=== PATIENT | female | born 1970 | race African-American/Black ===

== ENCOUNTER 2017-04-10 12:28 | Emergency (ER) | payer OTHER ==
[2017-04-10 12:45] VITALS: TEMP 98.8
[2017-04-10] MEDS ORDERED: ACETAMINOPHEN 325 MG TABLET (FP) ONE (13:42)
[2017-04-10] MEDS ORDERED: MECLIZINE HCL 25 MG TABLET (FP) PO ONE (13:42)
[2017-04-10] MEDS ORDERED: ACETAMINOPHEN 325 MG TABLET (FP) PO ONE (13:42)
[2017-04-10] MEDS ORDERED: MECLIZINE HCL 25 MG TABLET (FP) ONE (13:42)
[2017-04-10] MEDS ORDERED: ONDANSETRON 4 MG TABLET PO ONE (14:03)
[2017-04-10] MEDS ORDERED: ONDANSETRON *ODT* 4 MG TABLET ONE (14:14)
--- NOTE | 2017-04-10 14:41 | PDOC ---
History of Present Illness - General History Source: Patient Exam Limitations: No Limitations <Elier Perez - Last Filed: 04/10/17 14:29> - General History Source: Patient Exam Limitations: No Limitations - History of Present Illness Initial Comments: 04/10/17 14:57 The patient is a 47 year old female, with a significant past medical history of HTN and a seizure disorder, who presents to the emergency department with, 3 days of lightheadedness and her equilibrium is off. She reports this to occur when she makes sudden movements especially when she gets up and walks. She describes her lightheadedness when she gets up as a swirling. She also reports a subjective fever. She reports her last seizure to be approximately 5 years ago. She denies recent fevers, chills, headache or dizziness. She denies recent nausea, vomit, diarrhea or constipation. She denies recent dysuria, frequency, urgency or hematuria. She denies recent chest pain or shortness of breath. Past surgical history: None reported. Social history: Nonsmoker. Denies EtOH use and recreational drug use. Primary Care Physician: Dr. Chris Espinoza <Imelda Hernandez - Last Filed: 04/10/17 14:58> - General Chief Complaint: Lightheaded Stated Complaint: DIZZINESS Time Seen by Provider: 04/10/17 13:31 Past History - Past Medical History COPD: No GI Disorders: Yes (gerd) HTN: Yes Seizures: Yes - Surgical History Neurologic Surgery: Yes (tumor removed) - Suicide/Smoking/Psychosocial Hx Smoking Status: No Smoking History: Never smoked Have you smoked in the past 12 months: No Number of Cigarettes Smoked Daily: 1 Hx Alcohol Use: Yes (SOCIAL) Drug/Substance Use Hx: No Substance Use Type: None <Elier Perez - Last Filed: 04/10/17 14:29> <Imelda Hernandez - Last Filed: 04/10/17 14:58> - Past Medical History Allergies/Adverse Reactions: Allergies Allergy/AdvReac Type Severity Reaction Status Date / Time phenytoin sodium Allergy Swelling Verified 04/10/17 12:45 [From Dilantin] phenytoin sodium extended Allergy Swelling Verified 04/10/17 12:45 [From Dilantin] Home Medications: Ambulatory Orders Levetiracetam [Keppra] 500 mg PO BID 09/23/11 Oxcarbazepine [Trileptal] 150 mg PO BID 09/23/11 Topiramate [Topamax] 100 mg PO DAILY 09/23/11 Amlodipine Besylate [Norvasc -] 0 mg PO DAILY 04/10/17 Esomeprazole Magnesium [Nexium 24Hr] 20 mg PO DAILY 04/10/17 Meclizine HCl 25 mg PO Q6H PRN #20 tablet 04/10/17 Ondansetron HCl [Zofran] 4 mg PO Q8H PRN #15 tablet 04/10/17 Review of Systems - Review of Systems Able to Perform ROS?: Yes Comments:: 04/10/17 14:58 GENERAL/CONSTITUTIONAL: No fever or chills. No weakness. HEAD, EYES, EARS, NOSE AND THROAT: No change in vision. No ear pain or discharge. No sore throat. CARDIOVASCULAR: No chest pain or shortness of breath. RESPIRATORY: No cough, wheezing, or hemoptysis. GASTROINTESTINAL: No nausea, vomiting, diarrhea or constipation. GENITOURINARY: No dysuria, frequency, or change in urination. MUSCULOSKELETAL: No joint or muscle swelling or pain. No neck or back pain. SKIN: No rash NEUROLOGIC: +Lightheadedness. +Imbalance equilibrium. No headache, loss of consciousness, or change in strength/sensation. ENDOCRINE: No increased thirst. No abnormal weight change. HEMATOLOGIC/LYMPHATIC: No anemia, easy bleeding, or history of blood clots. ALLERGIC/IMMUNOLOGIC: No hives or skin allergy. <Imelda Hernandez - Last Filed: 04/10/17 14:58> *Physical Exam - Vital Signs Last Vital Signs Temp Pulse Resp BP Pulse Ox 98.8 F 101 H 20 117/75 99 04/10/17 12:41 04/10/17 12:41 04/10/17 12:41 04/10/17 12:41 04/10/17 12:41 - Physical Exam Comments: 04/10/17 14:50 GENERAL: Awake, alert, and fully oriented, in no acute distress. HEAD: No signs of trauma EYES: PERRLA, EOMI, sclera anicteric, conjunctiva clear ENT: Auricles normal inspection, hearing grossly normal, nares patent NECK: Normal ROM, supple LUNGS: Breath sounds equal, clear to auscultation bilaterally. No wheezes, and no crackles HEART: Regular rate and rhythm, normal S1 and S2, no murmurs, rubs or gallops ABDOMEN: Soft, nontender, normoactive bowel sounds. No guarding, no rebound. No masses EXTREMITIES: Normal range of motion, no edema. No clubbing or cyanosis. No cords, erythema, or tenderness NEUROLOGICAL: Cranial nerves II through XII intact. Normal speech, normal gait. 5/5 strength upper and lower extremities. sensation intact throughout. No pronator drift. Finger to nose normal. Gait normal. Heel to carrasco normal. +Hema ibarra pike positive SKIN: Warm, Dry, normal turgor, no rashes or lesions noted. <Elier Perez - Last Filed: 04/10/17 14:29> - Vital Signs Last Vital Signs Temp Pulse Resp BP Pulse Ox 98.8 F 101 H 20 117/75 99 04/10/17 12:41 04/10/17 12:41 04/10/17 12:41 04/10/17 12:41 04/10/17 12:41 <Imelda Hernandez - Last Filed: 04/10/17 14:58> ED Treatment Course - Medications Given in the ED: ED Medications Discontinued Medications Generic Name Dose Route Start Last Admin Trade Name Freq PRN Reason Stop Dose Admin Acetaminophen 650 mg 04/10/17 13:42 04/10/17 13:45 Tylenol - PO 04/10/17 13:43 650 mg ONCE ONE Administration Meclizine HCl 50 mg 04/10/17 13:42 04/10/17 13:45 Antivert - PO 04/10/17 13:43 50 mg ONCE ONE Administration Ondansetron HCl 4 mg 04/10/17 14:03 04/10/17 14:16 Zofran - PO 04/10/17 14:04 4 mg ONCE ONE Administration <Elier Perez - Last Filed: 04/10/17 14:29> - Medications Given in the ED: ED Medications Discontinued Medications Generic Name Dose Route Start Last Admin Trade Name Freq PRN Reason Stop Dose Admin Acetaminophen 650 mg 04/10/17 13:42 04/10/17 13:45 Tylenol - PO 04/10/17 13:43 650 mg ONCE ONE Administration Meclizine HCl 50 mg 04/10/17 13:42 04/10/17 13:45 Antivert - PO 04/10/17 13:43 50 mg ONCE ONE Administration Ondansetron HCl 4 mg 04/10/17 14:03 04/10/17 14:16 Zofran - PO 04/10/17 14:04 4 mg ONCE ONE Administration <Imelda Hernandez - Last Filed: 04/10/17 14:58> Medical Decision Making - Medical Decision Making 04/10/17 14:52 A portion of this note was documented by scribe services under my direction. I have reviewed the details of the note, within reason, and agree with the documentation with the following case summary and management plan written by me. Patient treated in the ED. Nursing notes are reviewed and incorporated into the medical decision-making. Vital signs reviewed. Vital Signs Temp Pulse Resp BP Pulse Ox 98.8 F 101 H 20 117/75 99 04/10/17 12:41 04/10/17 12:41 04/10/17 12:41 04/10/17 12:41 04/10/17 12:41 47-year-old female with history of hypertension, seizure disorder presents to the emergency department with vertiginous-like symptoms. Patient reports 3 days of the symptoms, worsened with turning her head or standing up. Denies any numbness or weakness. States that she feels her balance. Denies recent illnesses , earaches, fevers, chills, cough, vomiting, diarrhea. Patient is most definitely PERIPHERAL vertigo. She was treated with 50mg of meclizine and Zofran with significant improvement of symptoms. I advised patient that vertiginous-like symptoms may potentially recur. We'll give her referral to otolaryngology and neurology. Return precautions given. I discussed the physical exam findings, ancillary test results and final diagnoses with the patient. I answered all of the patient's questions. The patient was satisfied with the care received and felt comfortable with the discharge plan and treatment plan. The patient will call their primary care physician within 24 hours to arrange follow-up and will return to the Emergency Department with any new, persistant or worsening symptoms. <Elier Perez - Last Filed: 04/10/17 14:29> *DC/Admit/Observation/Transfer - Discharge Dispostion Admit: No <Elier Perez - Last Filed: 04/10/17 14:29> - Attestations Scribe Attestion: 04/10/17 14:58 Documentation prepared by Imelda Hernandez, acting as medical assembly for Elier Perez MD. <Imelda Hernandez - Last Filed: 04/10/17 14:58> Diagnosis at time of Disposition: Vertigo - Discharge Dispostion Disposition: HOME - Prescriptions Prescriptions: Meclizine HCl 25 mg PO Q6H PRN #20 tablet PRN Reason: Vertigo Ondansetron HCl [Zofran] 4 mg PO Q8H PRN #15 tablet PRN Reason: Nausea - Referrals Referrals: Chris Espinoza MD [Primary Care Provider] - Alpesh Resendez MD [Staff Physician] - Eugene Vallejo MD [Staff Physician] - - Patient Instructions Printed Discharge Instructions: DI for Vertigo Additional Instructions: Please follow up with your doctors. Call to schedule an appointment. Take 25 mg meclizine every 6 hours as needed for vertigo. Take 4 mg zofran every 8 hours as needed for nausea. - Post Discharge Activity
[2017-04-10 15:15] VITALS: BP 121/75; PULSE 70
== END 2017-04-10 15:15 | disposition home or self-care (01) ==
LOC: JER 12:28
DX: H81.399 Other peripheral vertigo, unspecified ear (principal); I10 Essential (primary) hypertension; K21.9 Gastro-esophageal reflux disease without esophagitis; Z86.69 Personal history of other diseases of the nervous system and sense organs
CPT/HCPCS: 99281-25

== ENCOUNTER 2017-04-16 00:02 | Observation (INO) | payer OTHER ==
--- NOTE | 2017-04-16 02:29 | PDOC ---
History of Present Illness - General Chief Complaint: Syncope/Near Syncope Stated Complaint: SYNCOPE Time Seen by Provider: 04/16/17 00:55 History Source: Patient Exam Limitations: No Limitations - History of Present Illness Initial Comments: This is a 47 YOF with h/o seizures on Keppra, HTN, craniotomy for meningioma removal in 2000, and newly diagnosed vertigo on meclizine and Zofran, who presents c/o LOC tonight at about 11 pm. The patient states that she was at a bar with her friends, she had two glasses of wine, and she began to feel hot and nauseated and then lost consciousness. She notes that she had been sitting in a chair, she leaned forward and put her head down to try and catch her breath , and the next thing she remembers is awakening on the floor with the paramedics there. Her friend stated that her eyes were rolling back in her head. The patient was subsequently confused for a short time after awakening. She has not had a seizure for the past 5 years and cannot recall whether this feels like a seizure. She has been taking her normal Keppra doses without any missed doses or recent changes in this medication. She has a mild headache but no additional symptoms, and she has otherwise been feeling well lately. She was seen here in the ED on 04/10/17 and diagnosed with vertigo, but has not had any further episodes. She sees Dr. Vallejo for her seizure disorder. Her PCP (Chris Espinoza) took her Keppra level two days ago and it was wnl. Past History - Past Medical History Allergies/Adverse Reactions: Allergies Allergy/AdvReac Type Severity Reaction Status Date / Time phenytoin sodium Allergy Swelling Verified 04/16/17 01:07 [From Dilantin] phenytoin sodium extended Allergy Swelling Verified 04/16/17 01:07 [From Dilantin] Home Medications: Ambulatory Orders Levetiracetam [Keppra] 500 mg PO BID 09/23/11 Oxcarbazepine [Trileptal] 150 mg PO BID 09/23/11 Topiramate [Topamax] 100 mg PO DAILY 09/23/11 Amlodipine Besylate [Norvasc -] 0 mg PO DAILY 04/10/17 Esomeprazole Magnesium [Nexium 24Hr] 20 mg PO DAILY 04/10/17 COPD: No GI Disorders: Yes (gerd) HTN: Yes Seizures: Yes - Surgical History Neurologic Surgery: Yes (tumor removed 2000) - Immunization History Immunization Up to Date: Yes - Suicide/Smoking/Psychosocial Hx Smoking Status: No Smoking History: Never smoked Have you smoked in the past 12 months: No Number of Cigarettes Smoked Daily: 1 Information on smoking cessation initiated: No Hx Alcohol Use: Yes (Socially) Drug/Substance Use Hx: No Substance Use Type: None Review of Systems - Review of Systems Able to Perform ROS?: Yes Constitutional: No: Chills, Fever, Unexplained wgt Loss HEENTM: No: Nose Congestion, Throat Pain Respiratory: No: Cough, Shortness of Breath Cardiac (ROS): Yes: Syncope (versus seizure). No: Chest Pain, Palpitations ABD/GI: No: Constipated, Diarrhea, Nausea, Vomiting : No: Burning, Dysuria Musculoskeletal: No: Back Pain, Neck Pain Integumentary: No: Bruising, Rash Neurological: Yes: Headache, Seizure (versus syncope), Dizziness. No: Numbness , Tingling, Weakness Endocrine: No: Unexplained Weight Gain, Unexplained Weight Loss *Physical Exam - Vital Signs Last Vital Signs Temp Pulse Resp BP Pulse Ox 98.2 F 96 H 16 110/72 96 04/16/17 01:07 04/16/17 01:07 04/16/17 01:07 04/16/17 01:07 04/16/17 01:07 - Physical Exam General Appearance: Yes: Nourished, Appropriately Dressed, Obese, Other (very pleasant adult female accompanied by at bedside, appropriately answering questions). No: Apparent Distress HEENT: positive: EOMI, YEE, Normal Voice, Hearing Grossly Normal, Other (no tongue bite, no rhinorrhea or otorrhea, no escalona sign, no raccoon eyes, no scalp hematoma). negative: Pale Conjunctivae, Scleral Icterus (R), Scleral Icterus (L), Nasal Congestion Neck: positive: Trachea midline, Supple. negative: Tender, Rigid Respiratory/Chest: positive: Lungs Clear, Normal Breath Sounds. negative: Respiratory Distress, Crackles, Rhonchi, Stridor, Wheezing Cardiovascular: positive: Regular Rhythm, Regular Rate. negative: S1, S2, Edema , JVD, Murmur Gastrointestinal/Abdominal: positive: Normal Bowel Sounds, Soft, Protuberent. negative: Tender, Organomegaly, Pulsatile Mass, Guarding Musculoskeletal: positive: Normal Inspection. negative: Decreased Range of Motion, Vertebral Tenderness Extremity: positive: Normal Capillary Refill, Normal Inspection, Normal Range of Motion. negative: Tender, Cyanosis Integumentary: positive: Normal Color, Dry, Warm. 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 negative: Facial Droop, Confused, Disoriented Heart Score/ECG Review #1 ECG reviewed & interpreted by me at: 03:30 General ECG Interpretation: Sinus Rhythm, Normal Rate, Normal Intervals 04/16/17 03:30 T-wave flattening in precordial leads. ED Treatment Course - LABORATORY CBC & Chemistry Diagram: 04/16/17 03:18 04/16/17 05:00 - ADDITIONAL ORDERS Additional order review: Laboratory Results 04/16/17 04/16/17 04/16/17 05:00 05:00 05:00 Sodium 140 Potassium 3.8 Chloride 102 Carbon Dioxide 27 Anion Gap 11 BUN 16 Creatinine 1.8 H Creat Clearance w eGFR 29.91 Random Glucose 101 Calcium 8.7 Total Bilirubin 0.2 D AST 19 ALT 26 Alkaline Phosphatase 98 Creatine Kinase 100 Troponin I < 0.02 Total Protein 7.9 Albumin 3.5 Urine Color Urine Appearance Urine pH Ur Specific [place] Urine Protein Urine Glucose (UA) Urine Ketones Urine Blood Urine Nitrite Urine Bilirubin Urine Urobilinogen Ur Leukocyte Esterase Urine WBC (Auto) Urine RBC (Auto) Ur Epithelial Cells Urine Bacteria Hyaline Casts Urine Mucus Urine HCG, Qual Alcohol, Quantitative 6.8 H* 04/16/17 04/16/17 04/16/17 03:18 02:54 02:54 Sodium Cancelled Potassium Cancelled Chloride Cancelled Carbon Dioxide Cancelled Anion Gap Cancelled BUN Cancelled Creatinine Cancelled Creat Clearance w eGFR Cancelled Random Glucose Cancelled Calcium Cancelled Total Bilirubin Cancelled AST Cancelled ALT Cancelled Alkaline Phosphatase Cancelled Creatine Kinase Cancelled Troponin I Cancelled Total Protein Cancelled Albumin Cancelled Urine Color Yellow Urine Appearance Cloudy Urine pH 5.0 Ur Specific [place] 1.016 Urine Protein Negative Urine Glucose (UA) Negative Urine Ketones Negative Urine Blood 1+ H Urine Nitrite Negative Urine Bilirubin Negative Urine Urobilinogen 2.0 H Ur Leukocyte Esterase 3+ H Urine WBC (Auto) 13 Urine RBC (Auto) 5 Ur Epithelial Cells Moderate Urine Bacteria Many Hyaline Casts 46 Urine Mucus Rare Urine HCG, Qual Negative Alcohol, Quantitative 04/16/17 03:18 RBC 4.23 MCV 84.6 MCHC 31.6 L RDW 14.6 MPV 6.8 L Neutrophils % 72.7 Lymphocytes % 20.3 D Monocytes % 5.8 Eosinophils % 0.7 Basophils % 0.5 - RADIOLOGY Radiology Studies Ordered: Category Date Time Status CXRPORT [CHEST X-RAY PORTABLE*] [RAD] Stat Radiology 04/16/17 02:30 Taken - Medications Given in the ED: ED Medications Discontinued Medications Generic Name Dose Route Start Last Admin Trade Name Addisonq PRN Reason Stop Dose Admin Acetaminophen 975 mg 04/16/17 02:31 04/16/17 02:48 Tylenol - PO 04/16/17 02:32 975 mg ONCE ONE Administration Nitrofurantoin Macrocrystals 100 mg 04/16/17 03:45 04/16/17 03:57 Macrodantin - PO 100 mg ONCE CHAITANYA Administration Sodium Chloride 1,000 ml 04/16/17 06:34 04/16/17 07:04 Normal Saline - IV 04/16/17 06:35 1,000 ml ONCE ONE Administration Sodium Chloride 1,000 ml 04/16/17 06:36 04/16/17 07:04 Normal Saline - IV 04/16/17 06:37 1,000 ml ONCE ONE Administration Medical Decision Making - Medical Decision Making 47 YOF with h/o seizure disorder (on Keppra), HTN, craniotomy for meningioma in 2000, p/w seizure vs. syncope tonight. States atraumatic as she slumped to ground from chair, now with headache. On exam she has initial slight tachycardia (resolved by the time of my exam), otherwise VS wnl, no distress. Her heart, lung, abdominal, and neuro exams are benign. DDX IBNLT seizure (i.e. precipitated by UTI, PNA, anemia, electrolyte derangement), syncope (i.e. arrhythmia, ACS, ischemia, etc). Ordered is CBCD CMP cardiac panel EKG CXR UA cx and Tylenol for headache. 04/16/17 03:32 UA with 3+ leukocyte est, ordered is a dose of Macrobid. 04/16/17 04:13 First and second chemistries and cardiac panels hemolyzed. Order re-placed and patient will be re-drawn. GONSALVES resolved per the patient's report. 04/16/17 06:42 Patient has Cr 1.8 on CMP. Patient's CMP will be re-drawn after IVF. The patient is comfortable with this plan. Patient's care signed out to [facility] day shift. *DC/Admit/Observation/Transfer Diagnosis at time of Disposition: Seizure, BRADEN (acute kidney injury) UTI (urinary tract infection) Qualifiers: Urinary tract infection type: acute cystitis Hematuria presence: with hematuria Qualified Code(s): N30.01 - Acute cystitis with hematuria Headache Qualifiers: Headache type: unspecified Headache chronicity pattern: acute headache Intractability: not intractable Qualified Code(s): R51 - Headache - Discharge Dispostion Condition at time of disposition: Guarded Admit: Yes - Referrals Referrals: Chris Espinoza MD [Primary Care Provider] - - Patient Instructions - Post Discharge Activity
[2017-04-16] MEDS ORDERED: ACETAMINOPHEN 500 MG TABLET (FP) PO ONE (02:31)
[2017-04-16] MEDS ORDERED: ACETAMINOPHEN 325 MG TABLET (FP) ONE (02:45)
[2017-04-16 03:05] LABS: URINE APPEARANCE CLOUDY; URINE BILIRUBIN NEGATIVE (NEGATIVE); URINE BLOOD 1+ (NEGATIVE); URINE COLOR YELLOW; URINE GLUCOSE (UA) NEGATIVE (NEGATIVE); URINE KETONE NEGATIVE (NEGATIVE); URINE NITRITE NEGATIVE (NEGATIVE); URINE PROTEIN NEGATIVE (NEGATIVE)
[2017-04-16 03:14] LABS: URINE LEUK ESTERASE 3+ (NEGATIVE)
[2017-04-16 03:15] LABS: EPI CELLS MODERATE /HPF (FEW); URINE BACTERIA MANY /hpf (NONE SEEN); URINE HYALINE CAST 46 /lpf; URINE MUCUS RARE
[2017-04-16 03:25] LABS: BASO % 0.5 % (0-2.0); EOS % 0.7 % (0-4.5); HEMATOCRIT 35.8 % (32.4-45.2); HEMOGLOBIN 11.3 GM/dL (10.7-15.3); LYMPH % 20.3 % (8-40); MCH 26.7 pg (25.7-33.7); MCHC 31.6 g/dl (32.0-36.0); MEAN CELL VOLUME 84.6 fl (80-96); MEAN PLT VOLUME 6.8 fl (7.5-11.1); MONO % 5.8 % (3.8-10.2); NEUT % 72.7 % (42.8-82.8); PLATELET COUNT 489 K/MM3 (134-434); RBC 4.23 M/mm3 (3.60-5.2); RDW 14.6 % (11.6-15.6); WHITE BLOOD COUNT 13.3 K/mm3 (4.0-10.0)
[2017-04-16] MEDS ORDERED: NITROFURANTOIN MACROCRYSTAL 50 MG CAPSULE (FP) PO SCH (03:45)
[2017-04-16] MEDS ORDERED: NITROFURANTOIN MACROCRYSTAL 50 MG CAPSULE (FP) ONE (03:54)
[2017-04-16 05:42] LABS: ALBUMIN 3.5 g/dl (3.4-5.0); ANION GAP 11 (8-16); BILIRUBIN,TOTAL 0.2 mg/dL (0.2-1.0); BLOOD UREA NITROGEN 16 mg/dL (7-18); CALCIUM 8.7 mg/dL (8.5-10.1); CHLORIDE 102 mmol/L (98-107); CO2 27 mmol/L (21-32); CREATININE 1.8 mg/dL (0.55-1.02); GLUCOSE,RANDOM 101 mg/dL (74-106); POTASSIUM 3.8 mmol/L (3.5-5.1); SGOT/AST 19 U/L (15-37); SGPT/ALT 26 U/L (12-78); SODIUM 140 mmol/L (136-145); TOT PROT 7.9 g/dl (6.4-8.2)
[2017-04-16 05:43] LABS: ALK PHOS 98 U/L (45-117)
[2017-04-16] MEDS ORDERED: SODIUM CHLORIDE 0.9% 1000 ML INFUS.BAG IV ONE ×2 (06:34→06:36)
--- NOTE | 2017-04-16 07:38 | PDOC ---
Attending Attestation - Resident Resident Name: GwenSharron - ED Attending Attestation I have performed the following: I have examined & evaluated the patient, The case was reviewed & discussed with the resident, I agree w/resident's findings & plan - HPI HPI: 04/16/17 07:31 Pt comes with syncope. She slumped to the floor. Unclear if she lost consciousness or if it was due to the fact that she was drinking with friends. - Physicial Exam PE: 04/16/17 07:38 Agree with resident exam. - Medical Decision Making 04/16/17 07:38 Plan is to check labs; CT head and admit to ED obs vs regular tele obs.
[2017-04-16] MEDS ORDERED: ACETAMINOPHEN 325 MG TABLET (FP) PO PRN (08:04)
--- NOTE | 2017-04-16 08:09 | HP ---
Admitting History and Physical - Primary Care Physician PCP: Chris Espinoza - Admission Chief Complaint: syncope, loc History of Present Illness: HPI This is a 47 year old female with hx of brain tumor resection (with Dr. Mal Steinberg ) 2000 s/p chemo/radiation, seizures, HTN recently seen in [facility] ED for dizziness /lightheadedness sent home with peripheral vertigo now coming back after losing consciousness at a bar. Patient reported feeling nauseous ill feeling, then feeling hot and after that woke up with the paramedics around her. She could vaguely head people talking around her. Her friend reports she was shaking and her eyes rolled dose not remember event happening, she fell on her side per her friends, she did not hit her head. She takes her seizure medication regularly, currently she reports to feeling "off" and has a mild head ache. Denies fever, chills, chest pain, blurry vision. 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 Cardiovascular: Yes: HTN - Past Surgical History Additional Past Surgical History: Brain tumor resection 2000 - Smoking History Smoking history: Never smoked Have you smoked in the past 12 months: No Aproximately how many cigarettes per day: 1 - Alcohol/Substance Use Hx Alcohol Use: Yes (Socially) - Social History Usual Living Arrangement: Yes: With Spouse ADL: Independent Occupation: does not work History of Recent Travel: No Home Medications - Allergies Allergies/Adverse Reactions: Allergies Allergy/AdvReac Type Severity Reaction Status Date / Time phenytoin sodium Allergy Swelling Verified 04/16/17 01:07 [From Dilantin] phenytoin sodium extended Allergy Swelling Verified 04/16/17 01:07 [From Dilantin] - Home Medications Home Medications: Ambulatory Orders Levetiracetam [Keppra] 500 mg PO BID 09/23/11 Oxcarbazepine [Trileptal] 150 mg PO BID 09/23/11 Topiramate [Topamax] 100 mg PO DAILY 09/23/11 Amlodipine Besylate [Norvasc -] 0 mg PO DAILY 04/10/17 Esomeprazole Magnesium [Nexium 24Hr] 20 mg PO DAILY 04/10/17 Review of Systems - Review of Systems Constitutional: reports: Other (hot) Eyes: reports: No Symptoms HENT: reports: No Symptoms Neck: reports: No Symptoms Cardiovascular: reports: No Symptoms Respiratory: reports: No Symptoms Gastrointestinal: reports: No Symptoms Genitourinary: reports: No Symptoms Musculoskeletal: reports: No Symptoms Integumentary: reports: No Symptoms Neurological: reports: Change in LOC, Syncope Endocrine: reports: No Symptoms Hematology/Lymphatic: reports: No Symptoms Psychiatric: reports: No Symptoms Physical Examination Vital Signs: Vital Signs Temperature 98.2 F 04/16/17 01:07 Pulse Rate 96 H 04/16/17 01:07 Respiratory Rate 16 04/16/17 01:07 Blood Pressure 110/72 04/16/17 01:07 O2 Sat by Pulse Oximetry (%) 96 04/16/17 01:07 Constitutional: Yes: Well Nourished Eyes: Yes: Conjunctiva Clear HENT: Yes: Atraumatic Neck: Yes: Supple Cardiovascular: Yes: Regular Rate and Rhythm, S1, S2 Respiratory: Yes: Regular, CTA Bilaterally Gastrointestinal: Yes: Normal Bowel Sounds, Soft Renal/: Yes: WNL Musculoskeletal: Yes: WNL Extremities: Yes: WNL Edema: No Peripheral Pulses WNL: Yes Integumentary: Yes: WNL Neurological: Yes: Alert, Oriented, Cran Nerves II-XII Intact ...Motor Strength: WNL Psychiatric: Yes: Alert, Oriented Labs: CBC, BMP 04/16/17 03:18 04/16/17 05:00 Imaging - Results Chest X-ray: Report Reviewed, Image Reviewed Problem List - Problems (1) BRADEN (acute kidney injury) Code(s): N17.9 - ACUTE KIDNEY FAILURE, UNSPECIFIED (2) Headache Code(s): R51 - HEADACHE Qualifiers: Headache type: unspecified Headache chronicity pattern: acute headache Intractability: not intractable Qualified Code(s): R51 - Headache (3) Seizure Code(s): R56.9 - UNSPECIFIED CONVULSIONS (4) UTI (urinary tract infection) Code(s): N39.0 - URINARY TRACT INFECTION, SITE NOT SPECIFIED Qualifiers: Urinary tract infection type: acute cystitis Hematuria presence: with hematuria Qualified Code(s): N30.01 - Acute cystitis with hematuria (5) Sepsis Code(s): A41.9 - SEPSIS, UNSPECIFIED ORGANISM Assessment/Plan Assessment: 47 year old female with htn, seizures admitted with loss of consciousness. Plan: 1. Syncope vs seizure - Likely seizure due to infectious etiology, previous dizziness earlier in week , however no labs drawn at that time, likely when infection started - Pt sees Dr. Vallejo yearly, will send keppra level, he will follow in office - Telemetry monitoring r/o arrhythmia - Continue keppra 500mg BID - Topamax - Trileptal 2. Sepsis due to UTI - Stop macrobid - Start ceftriaxone - Follow urine cx 3. BRADEN - Start IVF 4. HTN - Norvasc 5mg daily 5. Thrombocytosis - Possibly infectious related 6. DVT - Heparin sq Visit type - Emergency Visit Emergency Visit: Yes Care time: The patient presented to the Emergency Department on the above date and was hospitalized for further evaluation of their emergent condition. - New Patient This patient is new to me today: Yes Date on this admission: 04/16/17 - Critical Care Critical Care patient: No
[2017-04-16] MEDS: SODIUM CHLORIDE 1,000 ML IV SCH (08:41)
[2017-04-16] MEDS ORDERED: cefTRIAXone 1 GM/50 ML BAG (PRE-DOCKED) IVPB SCH (10:00)
[2017-04-16] MEDS ORDERED: ENOXAPARIN NA (PORCINE) 40 MG/0.4 ML DISP.SYRIN SQ SCH (10:00)
[2017-04-16] MEDS: amLODIPine BESYLATE 5 MG TABLET (FP) PO SCH (11:30)
[2017-04-16] MEDS: levETIRAcetam 500 MG TABLET (FP) PO SCH ×2 (11:30→22:42)
[2017-04-16] MEDS: OXcarbazepine 150 MG TABLET (UD) PO SCH ×2 (11:30→22:42)
[2017-04-16] MEDS: TOPIRAMATE 100 MG TABLET PO SCH (11:30)
[2017-04-16] MEDS: HEPARIN NA (PORCINE) 5,000 UNITS/ML 1ML VIAL SQ SCH ×2 (14:25→22:41)
--- NOTE | 2017-04-16 15:25 | EKG ---
Test Reason : Blood Pressure : / mmHG Vent. Rate : 096 BPM Atrial Rate : 096 BPM P-R Int : 176 ms QRS Dur : 086 ms QT Int : 352 ms P-R-T Axes : 039 033 023 degrees QTc Int : 444 ms NORMAL SINUS RHYTHM NONSPECIFIC T WAVE ABNORMALITY ABNORMAL ECG WHEN COMPARED WITH ECG OF 23-SEP-2011 09:56, PREMATURE ATRIAL COMPLEXES ARE NO LONGER PRESENT Confirmed by George Kraus ([id number]) on 04/16/2017 3:25:08 PM Referred By: Confirmed By:George Kraus
[2017-04-16 23:07] VITALS: BMI 45.4
[2017-04-17] MEDS: HEPARIN NA (PORCINE) 5,000 UNITS/ML 1ML VIAL SQ SCH ×3 (06:48→21:07)
[2017-04-17 07:20] LABS: ALBUMIN 3.1 g/dl (3.4-5.0); ANION GAP 6 (8-16); BLOOD UREA NITROGEN 13 mg/dL (7-18); CALCIUM 8.5 mg/dL (8.5-10.1); CHLORIDE 107 mmol/L (98-107); CO2 29 mmol/L (21-32); CREATININE 1.3 mg/dL (0.55-1.02); GLUCOSE,RANDOM 94 mg/dL (74-106); MAGNESIUM 2.3 mg/dL (1.8-2.4); PHOSPHOROUS 3.8 mg/dL (2.5-4.9); POTASSIUM 3.8 mmol/L (3.5-5.1); SGOT/AST 16 U/L (15-37); SGPT/ALT 22 U/L (12-78); SODIUM 142 mmol/L (136-145)
[2017-04-17 07:21] LABS: ALK PHOS 92 U/L (45-117); BILIRUBIN,TOTAL 0.4 mg/dL (0.2-1.0); TOT PROT 7.3 g/dl (6.4-8.2)
[2017-04-17 07:30] LABS: BASO % 0.3 % (0-2.0); EOS % 4.5 % (0-4.5); HEMATOCRIT 32.6 % (32.4-45.2); HEMOGLOBIN 10.3 GM/dL (10.7-15.3); LYMPH % 37.7 % (8-40); MCH 26.6 pg (25.7-33.7); MCHC 31.5 g/dl (32.0-36.0); MEAN CELL VOLUME 84.5 fl (80-96); MEAN PLT VOLUME 6.9 fl (7.5-11.1); MONO % 6.5 % (3.8-10.2); PLATELET COUNT 436 K/MM3 (134-434); RBC 3.86 M/mm3 (3.60-5.2); RDW 14.9 % (11.6-15.6); WHITE BLOOD COUNT 7.7 K/mm3 (4.0-10.0)
[2017-04-17] MEDS ORDERED: PT OWN MED DRAWER 7, Y5N ONE (10:14)
[2017-04-17] MEDS: CEFTRIAXONE 1 GM/50 ML PREMIX IVPB SCH (10:17)
[2017-04-17] MEDS: SODIUM CHLORIDE 1,000 ML IV SCH ×2 (10:18→19:13)
[2017-04-17] MEDS: amLODIPine BESYLATE 5 MG TABLET (FP) PO SCH (10:20)
[2017-04-17] MEDS: levETIRAcetam 500 MG TABLET (FP) PO SCH ×2 (10:20→21:07)
[2017-04-17] MEDS: TOPIRAMATE 100 MG TABLET PO SCH (10:20)
[2017-04-17] MEDS: OXcarbazepine 150 MG TABLET (UD) PO SCH ×2 (10:21→21:08)
--- NOTE | 2017-04-17 15:37 | PN ---
Physical Exam: SUBJECTIVE: Patient seen and examined. She has chronic left sided weakness, reported cough and mild headache OBJECTIVE: Vital Signs Period Temp Pulse Resp BP Sys/Moulton Pulse Ox Last 24 Hr 97.5 F-98.5 F 78-95 18-20 98-130/58-89 95-98 PE Neuro: alert, awake, cn 2-12intact Pulm: CTAB CV: s1 s2 rrr no mrg Abd: s nt nd + bs Ext: warm no le edema Laboratory Results - last 24 hr 04/17/17 04/17/17 05:30 05:30 WBC 7.7 D RBC 3.86 Hgb 10.3 L Hct 32.6 MCV 84.5 MCH 26.6 MCHC 31.5 L RDW 14.9 Plt Count 436 H MPV 6.9 L Neutrophils % 51.0 D Lymphocytes % 37.7 D Monocytes % 6.5 Eosinophils % 4.5 D Basophils % 0.3 Sodium 142 Potassium 3.8 Chloride 107 Carbon Dioxide 29 Anion Gap 6 L BUN 13 Creatinine 1.3 H Creat Clearance w eGFR 43.54 Random Glucose 94 Calcium 8.5 Phosphorus 3.8 Magnesium 2.3 Total Bilirubin 0.4 D AST 16 ALT 22 Alkaline Phosphatase 92 Total Protein 7.3 Albumin 3.1 L Active Medications Generic Name Dose Route Start Last Admin Trade Name Freq PRN Reason Stop Dose Admin Acetaminophen 650 mg 04/16/17 08:04 04/17/17 01:26 Tylenol - PO 650 mg Q4H PRN Administration PAIN Amlodipine Besylate 5 mg 04/16/17 10:00 04/17/17 10:20 Norvasc - PO 5 mg DAILY CHAITANYA Administration Heparin Sodium (Porcine) 5,000 unit 04/16/17 14:00 04/17/17 06:48 Heparin - SQ 5,000 unit TID CHAITANYA Administration Sodium Chloride 1,000 mls @ 83 mls/hr 04/16/17 08:15 04/17/17 10:18 Normal Saline - IV Not Given ASDIR CHAITANYA Levetiracetam 500 mg 04/16/17 10:00 04/17/17 10:20 Keppra - PO 500 mg BID CHAITANYA Administration Oxcarbazepine 150 mg 04/16/17 10:00 04/17/17 10:21 Trileptal - PO 150 mg BID CHAITANYA Administration Topiramate 100 mg 04/16/17 10:00 04/17/17 10:20 Topamax - PO 100 mg DAILY CHAITANYA Administration Microbiology 04/16/17 02:54 Urine Culture - Preliminary Urine - Urine Clean Catch Lactose Fermenting Neg Bacilli Assessment: 47 year old female with htn, seizures admitted with loss of consciousness. Plan: 1. Seizure - Keppra level pending - Continue keppra 500mg BID - Topamax - Trileptal 2. Dizziness/GONSALVES/blurry vision - Head CT ordered - Obtain influenza screening 2. Sepsis due to UTI - Continue ceftriaxone (day 2) - Urine cx NFNB 3. BRADEN - Improving - Continue fluids 4. HTN - Norvasc 5mg daily 5. Thrombocytosis - Possibly infectious related 6. DVT - Heparin sq Problem List - Problems (1) BRADEN (acute kidney injury) Code(s): N17.9 - ACUTE KIDNEY FAILURE, UNSPECIFIED (2) Headache Code(s): R51 - HEADACHE Qualifiers: Headache type: unspecified Headache chronicity pattern: acute headache Intractability: not intractable Qualified Code(s): R51 - Headache (3) Seizure Code(s): R56.9 - UNSPECIFIED CONVULSIONS (4) UTI (urinary tract infection) Code(s): N39.0 - URINARY TRACT INFECTION, SITE NOT SPECIFIED Qualifiers: Urinary tract infection type: acute cystitis Hematuria presence: with hematuria Qualified Code(s): N30.01 - Acute cystitis with hematuria (5) Sepsis Code(s): A41.9 - SEPSIS, UNSPECIFIED ORGANISM Visit type - Emergency Visit Emergency Visit: Yes ED Registration Date: 04/16/17 Care time: The patient presented to the Emergency Department on the above date and was hospitalized for further evaluation of their emergent condition. - New Patient This patient is new to me today: No - Critical Care Critical Care patient: No
[2017-04-18] MEDS: SODIUM CHLORIDE 1,000 ML IV SCH ×2 (05:09→10:37)
[2017-04-18] MEDS: HEPARIN NA (PORCINE) 5,000 UNITS/ML 1ML VIAL SQ SCH (05:10)
[2017-04-18 07:43] LABS: ANION GAP 8 (8-16); BLOOD UREA NITROGEN 14 mg/dL (7-18); CALCIUM 8.6 mg/dL (8.5-10.1); CHLORIDE 113 mmol/L (98-107); CO2 26 mmol/L (21-32); CREATININE 1.3 mg/dL (0.55-1.02); GLUCOSE,RANDOM 106 mg/dL (74-106); POTASSIUM 4.4 mmol/L (3.5-5.1); SODIUM 147 mmol/L (136-145)
[2017-04-18] MEDS: amLODIPine BESYLATE 5 MG TABLET (FP) PO SCH (09:46)
[2017-04-18] MEDS: levETIRAcetam 500 MG TABLET (FP) PO SCH (09:46)
[2017-04-18] MEDS: TOPIRAMATE 100 MG TABLET PO SCH (09:46)
[2017-04-18] MEDS: CEFTRIAXONE 1 GM/50 ML PREMIX IVPB SCH (09:47)
[2017-04-18] MEDS: OXcarbazepine 150 MG TABLET (UD) PO SCH (09:47)
[2017-04-18 11:51] VITALS: BP 123/85; PULSE 82; TEMP 97.5
--- NOTE | 2017-04-18 11:56 | DS ---
Physical Exam: SUBJECTIVE: Patient seen and examined. No issue, no nausea, vomiting,dizziness GONSALVES. OBJECTIVE: Vital Signs Period Temp Pulse Resp BP Sys/Moulton Pulse Ox Last 24 Hr 97.5 F-98.7 F 76-88 18-20 101-123/58-85 95-95 PE Neuro: alert, awake, cn 2-12intact Pulm: CTAB CV: s1 s2 rrr no mrg Abd: s nt nd + bs Ext: warm no le edema Laboratory Results - last 24 hr 04/18/17 06:04 Sodium 147 H Potassium 4.4 Chloride 113 H Carbon Dioxide 26 Anion Gap 8 BUN 14 Creatinine 1.3 H Random Glucose 106 Calcium 8.6 HOSPITAL COURSE: Date of Admission:04/16/17 Date of Discharge: 04/18/17 Minutes to complete discharge: 36 Discharge Summary Reason For Visit: SYNCOPE Current Active Problems BRADEN (acute kidney injury) (Acute) Headache (Acute) Seizure (Acute) Sepsis (Acute) UTI (urinary tract infection) (Acute) Hospital Course: Initial Hospital Course: Briefly, this 47 year old female with hx of brain tumor resection (with Dr. Mal Steinberg) 2001 s/p chemo/radiation, seizures, HTN recently seen in [facility] ED for dizziness/lightheadedness sent home with peripheral vertigo now returned after losing consciousness at a bar. Patient reported feeling nauseous ill feeling, then feeling hot and after that woke up with the paramedics around her. She could vaguely head people talking around her. Her friend reported she was shaking and her eyes rolled dose not remember event happening, she fell on her side per her friends, she did not hit her head. She takes her seizure medication regularly. Subsequent Hospital Course/Progress Note/DC summary: Assessment: 47 year old female with htn, seizures admitted with loss of consciousness. Plan: 1. Seizure - Keppra level pending - Continue keppra 500mg BID - Topamax - Trileptal 2. Dizziness/GONSALVES/blurry vision - Resolved - Head CT no acute changes - Flu negative 2. Sepsis due to UTI - Klebsiella species - s/p Ceftriaxone (day 3) - Home with ceftin 500mg BID for total 7 days course 3. BRADEN - Improved - PCP follow up, pt aware 4. HTN - Norvasc 5mg daily 5. Thrombocytosis - Possibly infectious related Dispo: - Home with pcp and neurology follow up, abx as listed - Pt aware and agrees to above plan Condition: Stable - Instructions Diet, Activity, Other Instructions: Please return to the ED for any new, persistent, or worsening symptoms. Follow up with your PCP in 1 week Next week follow up with Dr. Vallejo Resume home medications as directed Complete antibiotics as directed Referrals: Eugene Wagoner MD [Non Staff, Medical] - 1 Week (Follow up in office next week, he is expecting you) Chris Espinoza MD [Primary Care Provider] - Disposition: HOME - Home Medications Comprehensive Discharge Medication List: Ambulatory Orders Levetiracetam [Keppra] 500 mg PO BID 09/23/11 Oxcarbazepine [Trileptal -] 150 mg PO BID 09/23/11 Topiramate [Topamax -] 100 mg PO DAILY 09/23/11 Amlodipine Besylate [Norvasc -] 0 mg PO DAILY 04/10/17 Esomeprazole Magnesium [Nexium 24Hr] 20 mg PO DAILY 04/10/17 Cefuroxime Axetil [Ceftin -] 500 mg PO BID #8 tablet 04/18/17 Problem List - Problems (1) BRADEN (acute kidney injury) Code(s): N17.9 - ACUTE KIDNEY FAILURE, UNSPECIFIED (2) Headache Code(s): R51 - HEADACHE Qualifiers: Headache type: unspecified Headache chronicity pattern: acute headache Intractability: not intractable Qualified Code(s): R51 - Headache (3) Seizure Code(s): R56.9 - UNSPECIFIED CONVULSIONS (4) UTI (urinary tract infection) Code(s): N39.0 - URINARY TRACT INFECTION, SITE NOT SPECIFIED Qualifiers: Urinary tract infection type: acute cystitis Hematuria presence: with hematuria Qualified Code(s): N30.01 - Acute cystitis with hematuria (5) Sepsis Code(s): A41.9 - SEPSIS, UNSPECIFIED ORGANISM This patient is new to me today: No Emergency Visit: Yes ED Registration Date: 04/16/17 Care time: The patient presented to the Emergency Department on the above date and was hospitalized for further evaluation of their emergent condition. Critical Care patient: No - Discharge Referral Referred to [facility] Med P.C.: No
== END 2017-04-18 13:40 | disposition home or self-care (01) ==
LOC: JER 00:02 → JERBED 19:52 → J7W 04-17 01:10
PROVIDERS: ADMIT Internal Medicine; ATTEND Nurse Practitioner Acute Care
PROC: 3E03329 Introduction of Other Anti-infective into Peripheral Vein, Percutaneous Approach (ICD-10-PCS; principal; 2017-04-16)
PROC: 3E0337Z Introduction of Electrolytic and Water Balance Substance into Peripheral Vein, Percutaneous Approach (ICD-10-PCS; 2017-04-16)
PROC: 3E013GC Introduction of Other Therapeutic Substance into Subcutaneous Tissue, Percutaneous Approach (ICD-10-PCS; 2017-04-16)
DX: R55 Syncope and collapse (principal); G40.909 Epilepsy, unspecified, not intractable, without status epilepticus; N17.9 Acute kidney failure, unspecified; A41.9 Sepsis, unspecified organism; N30.01 Acute cystitis with hematuria; R51 Headache; I10 Essential (primary) hypertension; K21.9 Gastro-esophageal reflux disease without esophagitis; Z98.890 Other specified postprocedural states; Z88.8 Allergy status to other drugs, medicaments and biological substances; Z92.21 Personal history of antineoplastic chemotherapy; Z92.3 Personal history of irradiation
CPT/HCPCS: 36415; 70450-TC; 71045-TC; 80048; 80053; 80307; 81003; 81015; 82550; 83735; 84100; 84484; 84703; 85025; 87086; 87186; 87804; 93005; 93010; 96372; 96374; 99285-25; G0378; J1644

== ENCOUNTER 2018-05-12 12:41 | Emergency (ER) | payer OTHER ==
[2018-05-12 12:59] VITALS: BP 118/80; PULSE 86; TEMP 98.6; BMI 44.7
--- NOTE | 2018-05-12 13:15 | PDOC ---
History of Present Illness - General Chief Complaint: Respiratory Stated Complaint: COLD SYMPTOMS / WEAKNESS Time Seen by Provider: 05/12/18 13:01 Past History - Past Medical History Allergies/Adverse Reactions: Allergies Allergy/AdvReac Type Severity Reaction Status Date / Time phenytoin sodium Allergy Swelling Verified 05/12/18 12:49 [From Dilantin] phenytoin sodium extended Allergy Swelling Verified 05/12/18 12:49 [From Dilantin] Home Medications: Ambulatory Orders Oxcarbazepine [Trileptal -] 150 mg PO BID 09/23/11 Topiramate [Topamax -] 100 mg PO DAILY 09/23/11 levETIRAcetam [Keppra] 500 mg PO BID 09/23/11 Amlodipine Besylate [Norvasc -] 5 mg PO DAILY 04/10/17 Azithromycin [Zithromax -] 250 mg PO UTDICT #6 tab 05/12/18 Guaifenesin Dm [Robitussin Dm -] 10 ml PO Q6H PRN 05/12/18 Losartan/Hydrochlorothiazide [Losartan-Hctz 50-12.5 mg Tab] 1 each PO DAILY Olopatadine HCl [Pataday] 2.5 ml OP ASDIR 05/12/18 Omeprazole 40 mg PO DAILY 05/12/18 Vitamin B12 5,000 unit PO DAILY 05/12/18 COPD: No GI Disorders: Yes (gerd) HTN: Yes Seizures: Yes - Surgical History Neurologic Surgery: Yes (tumor removed 2000) - Immunization History Immunization Up to Date: Yes - Suicide/Smoking/Psychosocial Hx Smoking Status: No Smoking History: Unknown if ever smoked Have you smoked in the past 12 months: Yes Number of Cigarettes Smoked Daily: 1 Hx Alcohol Use: Yes (Socially) Drug/Substance Use Hx: No Substance Use Type: None *Physical Exam - Vital Signs Last Vital Signs Temp Pulse Resp BP Pulse Ox 98.6 F 86 18 118/80 96 05/12/18 12:57 05/12/18 12:57 05/12/18 12:57 05/12/18 12:57 05/12/18 12:57 Moderate Sedation - Procedure Monitoring Vital Signs: Procedure Monitoring Vital Signs Temperature 98.6 F 05/12/18 12:57 Pulse Rate 86 05/12/18 12:57 Respiratory Rate 18 05/12/18 12:57 Blood Pressure 118/80 0215/19 12:57 O2 Sat by Pulse Oximetry (%) 96 05/12/18 12:57 *DC/Admit/Observation/Transfer Diagnosis at time of Disposition: URI (upper respiratory infection) Qualifiers: URI type: acute nasopharyngitis (common cold) Qualified Code(s): J00 - Acute nasopharyngitis [common cold] - Discharge Dispostion Disposition: HOME Condition at time of disposition: Stable Decision to Admit order: No - Prescriptions Prescriptions: Azithromycin [Zithromax -] 250 mg PO UTDICT #6 tab - Referrals Referrals: Chris Espinoza MD [Primary Care Provider] - - Patient Instructions Printed Discharge Instructions: DI for Acute Bronchitis Additional Instructions: Discharge instructions 1. Please follow up with your primary physician within the next few days and explain that you have been seen here in the Emergency Room. 2. If you experience any worsening of symptoms, please return to the ER 3. Rest, complete all antibiotics. Take Mucinex to help relieve other symptoms 4. Drink plenty of water - Post Discharge Activity Forms/Work/School Notes: Back to Work
== END 2018-05-12 13:23 | disposition home or self-care (01) ==
LOC: JER 12:41
DX: J06.9 Acute upper respiratory infection, unspecified (principal); I10 Essential (primary) hypertension; K21.9 Gastro-esophageal reflux disease without esophagitis; Z86.69 Personal history of other diseases of the nervous system and sense organs
CPT/HCPCS: 99282-25

== ENCOUNTER 2018-06-24 15:51 | Inpatient (IN) | payer OTHER ==
--- NOTE | 2018-06-24 17:10 | PDOC ---
History of Present Illness - General Chief Complaint: CVA/TIA Stated Complaint: LF HAND NUMBNESS Time Seen by Provider: 06/24/18 16:38 History Source: Patient Exam Limitations: No Limitations - History of Present Illness Initial Comments: 06/24/18 17:03 48 yo female pmh of HTN, seizures and s/p resection of meningioma ([address] Steinberg at [facility], Neurologist is Dr. Vallejo) presents to the ED with left hand weakness, numbness and difficulty with translating thoughts into actions on her left side upper and lower ext since the 17 of June. Pt states Since June 19, she noted these symtoms suddenly began while relaxing at home and have been constant without worsening in progression or improving. Pt states she has been dropping items out of her left hand and also gripping onto them for to long accidentally with associated numbness and tingling into the thumb and middle finger. Pt also admits to similar difficulty with her entire left leg and foot. Denies recent trauma or head injury, LOC, GONSALVES, changes in vision or speech Pt is not on ASA, statin or AC. NIH Stroke Scale - Last Known Well Date/Time & Onset Date Last Known Well: 06/19/18 - Initial Evaluation Level of consciousness: Alert Ask patient the month and their age: Answers both correctly Ask patient to open & close eyes; make fist and let go: Obeys both correctly Best gaze (horizontal eye movement): Normal Visual field testing: No visual field loss Facial paresis (Show teeth/raise eyebrows/close eyes tight): Normal symmetrical movement Motor Function: Left Arm: Some effort against gravity Motor Function: Right Arm: Normal (extends arm 90 (or 45) degrees for 10 seconds without drift Motor Function: Left Leg: Some effort against gravity Motor Function: Right Leg: Normal (extends leg 30 degrees for 5 seconds without drift) Limb Ataxia: Present in one limb Sensory(Use pinprick test arms,legs,trunk,face/side to side): Mild to moderate decrease in sensation Best language (Describe picture, name items, read sentences): No Aphasia Dysarthria (read several words): Normal articulation Extinction and Inattention: No abnormality - Total Score NIH Stroke Scale Score: 6 Past History - Past Medical History Allergies/Adverse Reactions: Allergies Allergy/AdvReac Type Severity Reaction Status Date / Time phenytoin sodium Allergy Swelling Verified 06/24/18 16:01 [From Dilantin] phenytoin sodium extended Allergy Swelling Verified 06/24/18 16:01 [From Dilantin] Home Medications: Ambulatory Orders Oxcarbazepine [Trileptal -] 150 mg PO BID 09/23/11 Topiramate [Topamax -] 100 mg PO DAILY 09/23/11 levETIRAcetam [Keppra] 500 mg PO BID 09/23/11 Amlodipine Besylate [Norvasc -] 5 mg PO DAILY 04/10/17 Losartan/Hydrochlorothiazide [Losartan-Hctz 50-12.5 mg Tab] 1 each PO DAILY Olopatadine HCl [Pataday] 2.5 ml OP ASDIR 05/12/18 Omeprazole 40 mg PO DAILY 05/12/18 Vitamin B12 5,000 unit PO DAILY 05/12/18 COPD: No GI Disorders: Yes (gerd) HTN: Yes Seizures: Yes - Surgical History Neurologic Surgery: Yes (tumor removed 2000) - Immunization History Immunization Up to Date: Yes - Suicide/Smoking/Psychosocial Hx Smoking Status: No Smoking History: Unknown if ever smoked Have you smoked in the past 12 months: Yes Number of Cigarettes Smoked Daily: 1 Hx Alcohol Use: Yes (Socially) Drug/Substance Use Hx: No Substance Use Type: None Review of Systems - Review of Systems Constitutional: No: Chills, Fever HEENTM: No: Blurred Vision, Double Vision Respiratory: No: Shortness of Breath Cardiac (ROS): No: Chest Pain, Edema, Palpitations ABD/GI: No: Constipated, Diarrhea, Nausea, Vomiting : No: Burning, Dysuria Musculoskeletal: No: Back Pain Neurological: Yes: Numbness, Tingling, Weakness (left sided), Ataxia, Dizziness. No: Headache *Physical Exam - Vital Signs Last Vital Signs Temp Pulse Resp BP Pulse Ox 98.4 F 109 H 18 132/79 100 06/24/18 15:59 06/24/18 15:59 06/24/18 15:59 06/24/18 15:59 06/24/18 15:59 - Physical Exam General Appearance: Yes: Nourished, Appropriately Dressed. No: Apparent Distress HEENT: positive: EOMI, YEE, Normal Voice, Hearing Grossly Normal Neck: positive: Supple. negative: Carotid bruit, Decreased range of motion, Tender lateral, Tender midline Respiratory/Chest: positive: Lungs Clear, Normal Breath Sounds. negative: Accessory Muscle Use, Crackles, Rales, Rhonchi, Stridor, Wheezing Cardiovascular: positive: Regular Rhythm, S1, S2, Tachycardia. negative: Edema , JVD, Murmur Vascular Pulses: Dorsalis-Pedis (R): 4+, Doralis-Pedis (L): 4+ Gastrointestinal/Abdominal: positive: Flat, Soft. negative: Pulsatile Mass, Distended, Guarding, Rebound, Tenderness Musculoskeletal: negative: CVA Tenderness Extremity: positive: Normal Capillary Refill, Normal Inspection, Normal Range of Motion, Pelvis Stable Integumentary: positive: Normal Color, Dry, Warm Neurologic: positive: criminal justice instructor II-XII NML intact, Fully Oriented, Alert, Normal Mood/ Affect, Normal Response, Numbness, Other (rhomberg and heal to carrasco neg however , rapid alternating movements positive left upper ext). negative: Motor Strength 5/5 (left sided upper and lower ext 4/5 however pulses equal bilaterally), Facial Droop, Sensory Deficit, Finger to Nose (normal), Confused, Disoriented ED Treatment Course - LABORATORY CBC & Chemistry Diagram: 06/25/18 07:00 06/25/18 07:00 Medical Decision Making - Medical Decision Making 06/24/18 17:46 48 yo female pmh of HTN, seizures and s/p resection of meningioma ([address] Steinberg at [facility], Neurologist is Dr. Vallejo) presents to the ED with left hand weakness, numbness and difficulty with translating thoughts into actions on her left side upper and lower ext since the 17 of June. Pt states Since June 19, she noted these symtoms suddenly began while relaxing at home and have been constant without worsening in progression or improving. Pt states she has been dropping items out of her left hand and also gripping onto them for to long accidentally with associated numbness and tingling into the thumb and middle finger. Pt also admits to similar difficulty with her entire left leg and foot. Denies recent trauma or head injury, LOC, GONSALVES, changes in vision or speech Pt is not on ASA, statin or AC. Vitals stable Exam: rhomberg and heal to carrasco neg however, rapid alternating movements positive left upper ext 4/5 strength left compared to right with equal pulses bilateral upper ext Poor effort visualized with left sided strength testing however pt adamantly states she is doing the best she can. has noted similar issues that pt describes at home over the past week. DDX INLT: CVA, mass occupying lesion, spinal cord syndrome Head CT negative for acute pathology cbc wnl cmp wnl trops neg Case [facility] for Dr. Vallejo, states pt will need to be admitted for stroke work up including ASA, statin, carotid doppler, echo and MRI Case discussed with Dr. Gonzalez who agrees to admit pt for possible CVA or Mass lesion workup. Pt accepted for admission *DC/Admit/Observation/Transfer Diagnosis at time of Disposition: Weakness - Discharge Dispostion Condition at time of disposition: Stable Decision to Admit order: Yes - Referrals - Patient Instructions - Post Discharge Activity
[2018-06-24 17:27] LABS: EPI CELLS 10.2 /HPF (0-5); URINE APPEARANCE CLOUDY; URINE BACTERIA 134.5 /hpf (NEGATIVE); URINE BILIRUBIN NEGATIVE (NEGATIVE); URINE CASTS 6 /hpf (0-8); URINE COLOR YELLOW; URINE GLUCOSE (UA) NEGATIVE (NEGATIVE); URINE KETONE TRACE (NEGATIVE); URINE LEUK ESTERASE 1+ (NEGATIVE); URINE NITRITE NEGATIVE (NEGATIVE); URINE PROTEIN NEGATIVE (NEGATIVE); URINE RBC 4 /hpf (0-4); URINE WBC 11 /hpf (0-5)
[2018-06-24] MEDS ORDERED: ASPIRIN 325 MG TABLET PO ONE (17:41)
[2018-06-24] MEDS ORDERED: ATORVASTATIN CA 40 MG TABLET (FP) PO ONE (17:42)
--- NOTE | 2018-06-24 18:06 | PDOC ---
Attending Attestation - HPI HPI: 06/24/18 19:11 The patient is a 48-year-old female with a past medical history significant for HTN, hx of seizures s/p resection of meningioma ([address] Steinberg) presents to the emergency department with left-hand weakness, numbness, and difficulty articulating thoughts into action. The patient reports for the past 5 days the symptoms have been continuously presenting while resting. The patient states she s been having episodes of dropping items from her hand or episodes of gripping onto things for too long, with numbness and tingling to the middle finger and thumb. The patient reports similar symptoms to the left leg and foot. Allergies: phenytoin sodium PCP: Dr. Kamila Espinoza. - Medical Decision Making 06/24/18 19:11 Documentation prepared by Maribell Byrd, acting as medical records coordinator for Shelley Pina MD, MD/DO. <Mariebll Byrd - Last Filed: 06/24/18 19:11> - Resident Resident Name: Kishan Hall - ED Attending Attestation I have performed the following: I have examined & evaluated the patient, The case was reviewed & discussed with the resident, I agree w/resident's findings & plan, Exceptions are as noted - Physicial Exam PE: 06/24/18 19:00 awake alert lungs clear bilaterally heart rrr no mrg abd soft nt nd. ext wwp. nuero exam strength left upper and left lower ext weakness 3/5. right arm and leg strength 5/5 sensation intact, mildly reduced sensation left hand med n. distribution. skin warm and dry. 06/24/18 23:59 - Medical Decision Making 06/24/18 18:59 48 yo F h/o meningioma s/p resection, siezure, htn here today c/o left sided hand / arm weakness . states started 5 days ago. no f/c no neck or back pain. no injury. pt states when she picks up object had hard time with grasp. no h/o carpal tunnel. has also noted let leg weakness. difficulty lifting leg when walking. no change in balance. has difficulty with concentration and and stats when speaking she loses train of thought. on exam pt with left sided upper and lower weakness. decreased sensation left hand ( index, middle and thumb). speech clear. CN II - XII intact. differential: cva, mass lesion, spinal lesion, plan ct head, labs ua ekg. ct head negative. will order mri brain and neck. d/w nuerology dr. hawkins. will admit pt admission r/o cva. 06/24/18 19:03 06/24/18 19:04 dr casillas paged for admission. <Shelley Pina - Last Filed: 06/25/18 00:00> Heart Score/ECG Review #1 General ECG Interpretation: Sinus Rhythm, Normal Rate (9393), Normal Intervals, No acute ischemic changes <Shelley Pina - Last Filed: 06/25/18 00:00> NIH Stroke Scale - Last Known Well Date/Time & Onset Date Last Known Well: 06/22/18 - Initial Evaluation Level of consciousness: Alert Ask patient the month and their age: Answers both correctly Ask patient to open & close eyes; make fist and let go: Obeys both correctly Best gaze (horizontal eye movement): Normal Visual field testing: No visual field loss Facial paresis (Show teeth/raise eyebrows/close eyes tight): Normal symmetrical movement Motor Function: Left Arm: Some effort against gravity Motor Function: Right Arm: Normal (extends arm 90 (or 45) degrees for 10 seconds without drift Motor Function: Left Leg: Some effort against gravity Motor Function: Right Leg: Normal (extends leg 30 degrees for 5 seconds without drift) Limb Ataxia: Present in one limb Sensory(Use pinprick test arms,legs,trunk,face/side to side): Mild to moderate decrease in sensation Best language (Describe picture, name items, read sentences): No Aphasia Dysarthria (read several words): Normal articulation Extinction and Inattention: No abnormality - Total Score NIH Stroke Scale Score: 6 <Shelley Pian - Last Filed: 06/25/18 00:00>
[2018-06-24 18:21] LABS: BASO % 0.5 % (0-2.0); EOS % 1.4 % (0-4.5); HEMATOCRIT 35.9 % (32.4-45.2); HEMOGLOBIN 11.5 GM/dL (10.7-15.3); LYMPH % 23.8 % (8-40); MCH 28.4 pg (25.7-33.7); MEAN CELL VOLUME 88.7 fl (80-96); MEAN PLT VOLUME 6.8 fl (7.5-11.1); MONO % 6.7 % (3.8-10.2); NEUT % 67.6 % (42.8-82.8); PLATELET COUNT 434 K/MM3 (134-434); RBC 4.04 M/mm3 (3.60-5.2); WHITE BLOOD COUNT 10.7 K/mm3 (4.0-10.0)
[2018-06-24 18:47] LABS: INR 0.97 (0.83-1.09); PROTHROMBIN TIME (PATIENT) 11.5 SEC (9.7-13.0)
[2018-06-24 18:49] LABS: ALBUMIN 3.6 g/dl (3.4-5.0); ALK PHOS 96 U/L (45-117); ANION GAP 8 MMOL/L (8-16); BILIRUBIN,TOTAL 0.2 mg/dL (0.2-1); BLOOD UREA NITROGEN 19 mg/dL (7-18); CALCIUM 8.8 mg/dL (8.5-10.1); CHLORIDE 106 mmol/L (98-107); CHOLESTEROL 188 mg/dL (50-200); CO2 27 mmol/L (21-32); CREATININE 1.3 mg/dL (0.55-1.3); GLUCOSE,RANDOM 103 mg/dL (74-106); HDL CHOLESTEROL 46 mg/dL (40-60); POTASSIUM 3.4 mmol/L (3.5-5.1); SGOT/AST 10 U/L (15-37); SGPT/ALT 14 U/L (13-61); SODIUM 141 mmol/L (136-145); TOT PROT 8.7 g/dl (6.4-8.2); TRIGLYCERIDES 206 mg/dL (0-150)
[2018-06-24] MEDS ORDERED: ATORVASTATIN CA 10 MG TABLET (FP) ONE (22:23)
[2018-06-24] MEDS ORDERED: ASPIRIN 325 MG TABLET ONE (22:23)
[2018-06-24] MEDS: SODIUM CHLORIDE 1,000 ML IV SCH (22:31)
[2018-06-25 08:12] LABS: BASO % 0.1 % (0-2.0); EOS % 2.1 % (0-4.5); HEMATOCRIT 35.6 % (32.4-45.2); HEMOGLOBIN 11.3 GM/dL (10.7-15.3); LYMPH % 32.8 % (8-40); MCH 27.8 pg (25.7-33.7); MCHC 31.7 g/dl (32.0-36.0); MEAN CELL VOLUME 87.7 fl (80-96); MONO % 6.5 % (3.8-10.2); NEUT % 58.5 % (42.8-82.8); PLATELET COUNT 452 K/MM3 (134-434); RBC 4.06 M/mm3 (3.60-5.2); WHITE BLOOD COUNT 11.6 K/mm3 (4.0-10.0)
[2018-06-25 08:41] LABS: ALBUMIN 3.5 g/dl (3.4-5.0); ALK PHOS 93 U/L (45-117); ANION GAP 8 MMOL/L (8-16); BILIRUBIN,TOTAL 0.3 mg/dL (0.2-1); BLOOD UREA NITROGEN 19 mg/dL (7-18); CALCIUM 9.1 mg/dL (8.5-10.1); CHLORIDE 106 mmol/L (98-107); CO2 24 mmol/L (21-32); CREATININE 1.2 mg/dL (0.55-1.3); GLUCOSE,RANDOM 95 mg/dL (74-106); POTASSIUM 3.4 mmol/L (3.5-5.1); SGOT/AST 11 U/L (15-37); SGPT/ALT 14 U/L (13-61); SODIUM 138 mmol/L (136-145); TOT PROT 8.5 g/dl (6.4-8.2)
[2018-06-25] MEDS: ASPIRIN COATED 81 MG TABLET.EC PO SCH (09:28)
[2018-06-25] MEDS: HEPARIN NA (PORCINE) 5,000 UNITS/ML 1ML VIAL SQ SCH ×2 (09:28→22:05)
[2018-06-25] MEDS: levETIRAcetam 500 MG TABLET (FP) PO SCH ×2 (09:42→22:05)
[2018-06-25] MEDS: LOSARTAN 50MG/HCTZ 12.5MG 1 TAB (FP) PO SCH (09:42)
[2018-06-25] MEDS: amLODIPine BESYLATE 5 MG TABLET (FP) PO SCH (09:42)
[2018-06-25] MEDS: OXcarbazepine 150 MG TABLET (UD) PO SCH ×2 (09:43→22:05)
[2018-06-25] MEDS: PANTOPRAZOLE 40 MG TABLET (FP) PO SCH (09:43)
[2018-06-25] MEDS ORDERED: TOPIRAMATE 100 MG TABLET PO SCH (10:00)
--- NOTE | 2018-06-25 13:35 | HP ---
Admitting History and Physical - Past Medical History OSTEOPATHIC PHYSICIAN: Yes: Seizure Cardiovascular: Yes: HTN - Smoking History Smoking history: Unknown if ever smoked Have you smoked in the past 12 months: Yes Aproximately how many cigarettes per day: 1 - Alcohol/Substance Use Hx Alcohol Use: Yes (Socially) - Social History ADL: Independent Occupation: does not work History of Recent Travel: No Home Medications - Allergies Allergies/Adverse Reactions: Allergies Allergy/AdvReac Type Severity Reaction Status Date / Time phenytoin sodium Allergy Swelling Verified 06/24/18 16:01 [From Dilantin] phenytoin sodium extended Allergy Swelling Verified 06/24/18 16:01 [From Dilantin] - Home Medications Home Medications: Ambulatory Orders Oxcarbazepine [Trileptal -] 150 mg PO BID 09/23/11 Topiramate [Topamax -] 100 mg PO DAILY 09/23/11 levETIRAcetam [Keppra] 500 mg PO BID 09/23/11 Amlodipine Besylate [Norvasc -] 5 mg PO DAILY 04/10/17 Losartan/Hydrochlorothiazide [Losartan-Hctz 50-12.5 mg Tab] 1 each PO DAILY Olopatadine HCl [Pataday] 2.5 ml OP ASDIR 05/12/18 Omeprazole 40 mg PO DAILY 05/12/18 Vitamin B12 5,000 unit PO DAILY 05/12/18 Physical Examination Vital Signs: Vital Signs Temperature 98.0 F 06/25/18 09:03 Pulse Rate 92 H 06/25/18 09:03 Respiratory Rate 15 06/25/18 09:03 Blood Pressure 133/83 06/25/18 09:03 O2 Sat by Pulse Oximetry (%) 97 06/25/18 07:02 Labs: CBC, BMP 06/25/18 07:00 06/25/18 07:00
--- NOTE | 2018-06-25 16:20 | CON.NEURO ---
Consult - History of Present Illness History of Present Illness: 48-year-old female with a past medical history significant for HTN, hx of seizures s/p resection of meningioma ([address] Barajas) presents to the emergency department on 06/24/18 with left-hand weakness, numbness, and difficulty articulating thoughts into action. The patient reports for the past 5 days the symptoms have been continuously presenting while resting. The patient states shes been having episodes of dropping items from her hand or episodes of gripping onto things for too long, with numbness and tingling to the middle finger and thumb. The patient reports similar symptoms to the left leg and foot. feels weakness in the arm and leg is better today, she doesnt feel this was a seizure Allergies: phenytoin sodium as per chart on keprra 500BID , topamax 100BID and trileptal 150BID \she used to see DR CORMIER though he doesnt except her insurance , either does DR BARAJAS CT HD FINDINGS: Again noted large right frontal craniotomy with absence of bone Right frontal encephalomalacia again noted Mild protrusion through the defect of the craniotomy. There is no evidence of any intracerebral hemorrhage, mass lesion or midline shift. There is no evidence of an acute subdural hematoma. No CT evidence of acute infarct. No fractures are identified. Impression: Right frontal craniotomy with right frontal encephalomalacia grossly unchanged from prior No acute bleed or fracture.No CT evidence of acute infarct. 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 Cardio/Vascular: Yes: HTN - Alcohol/Substance Use Hx Alcohol Use: Yes (Socially) - Smoking History Smoking history: Unknown if ever smoked Have you smoked in the past 12 months: Yes Aproximately how many cigarettes per day: 1 - Social History ADL: Independent Occupation: does not work History of Recent Travel: No Home Medications - Allergies Allergies/Adverse Reactions: Allergies Allergy/AdvReac Type Severity Reaction Status Date / Time phenytoin sodium Allergy Swelling Verified 06/24/18 16:01 [From Dilantin] phenytoin sodium extended Allergy Swelling Verified 06/24/18 16:01 [From Dilantin] - Home Medications Home Medications: Ambulatory Orders Oxcarbazepine [Trileptal -] 150 mg PO BID 09/23/11 Topiramate [Topamax -] 100 mg PO DAILY 09/23/11 levETIRAcetam [Keppra] 500 mg PO BID 09/23/11 Amlodipine Besylate [Norvasc -] 5 mg PO DAILY 04/10/17 Losartan/Hydrochlorothiazide [Losartan-Hctz 50-12.5 mg Tab] 1 each PO DAILY Olopatadine HCl [Pataday] 2.5 ml OP ASDIR 05/12/18 Omeprazole 40 mg PO DAILY 05/12/18 Vitamin B12 5,000 unit PO DAILY 05/12/18 Physical Exam-Neuro Vital Signs: Vital Signs Temperature 98.2 F 06/25/18 15:34 Pulse Rate 72 06/25/18 15:34 Respiratory Rate 15 06/25/18 15:34 Blood Pressure 93/62 06/25/18 15:34 O2 Sat by Pulse Oximetry (%) 97 06/25/18 07:02 Labs: CBC, BMP 06/25/18 07:00 06/25/18 07:00 INR, PTT INR 0.97 (0.83-1.09) 06/24/18 18:05 - Neuro Exam Level Of Consciousness: Yes: Alert (awake, alert, EOMI, no facial, motor --min LUE drift, moving LLE well as well ) Imaging - Results Cat Scan: Report Reviewed, Image Reviewed Problem List - Problems (1) Meningioma, cerebral Code(s): D32.0 - BENIGN NEOPLASM OF CEREBRAL MENINGES (2) Seizure Code(s): R56.9 - UNSPECIFIED CONVULSIONS Assessment/Plan 48-year-old female with a past medical history significant for HTN, hx of seizures s/p resection of meningioma ([address] Barajas) presents to the emergency department on 06/24/18 with left-hand weakness, numbness, and difficulty articulating thoughts into action. The patient reports for the past 5 days the symptoms have been continuously presenting while resting. The patient states shes been having episodes of dropping items from her hand or episodes of gripping onto things for too long, with numbness and tingling to the middle finger and thumb. The patient reports similar symptoms to the left leg and foot. feels weakness in the arm and leg is better today, she doesnt feel this was a seizure Allergies: phenytoin sodium as per chart on keprra 500BID , topamax 100BID and trileptal 150BID \she used to see DR CORMIER though he doesnt except her insurance , either does DR BARAJAS CT HD FINDINGS: Again noted large right frontal craniotomy with absence of bone Right frontal encephalomalacia again noted Mild protrusion through the defect of the craniotomy. There is no evidence of any intracerebral hemorrhage, mass lesion or midline shift. There is no evidence of an acute subdural hematoma. No CT evidence of acute infarct. No fractures are identified. Impression: Right frontal craniotomy with right frontal encephalomalacia grossly unchanged from prior No acute bleed or fracture.No CT evidence of acute infarct. DOPPLER (-) AP : HX of right frontal craniotomy , meningioma , limited FU , with left sided weakness transient , ? postictal phenomena (todds) vs TIA check MRI BRAIN , cont ASA NEUROSURGERY CONSULT would consolidate AED regimen, she is on low dose of mutliple RX--DC topamax, INC TRILEPTAL 300BID and maintain KEPPRA 500BID EEG DR MCKEON
[2018-06-25 16:34] VITALS: BMI 43.2
[2018-06-25] MEDS: SODIUM CHLORIDE 1,000 ML IV SCH (22:05)
[2018-06-25] MEDS: ATORVASTATIN CA 20 MG TABLET (FP) PO SCH (22:05)
[2018-06-26 06:46] LABS: BASO % 0.5 % (0-2.0); EOS % 2.4 % (0-4.5); HEMATOCRIT 32.7 % (32.4-45.2); HEMOGLOBIN 10.5 GM/dL (10.7-15.3); LYMPH % 29.2 % (8-40); MCH 28.2 pg (25.7-33.7); MCHC 32.2 g/dl (32.0-36.0); MEAN CELL VOLUME 87.6 fl (80-96); MEAN PLT VOLUME 6.6 fl (7.5-11.1); MONO % 6.9 % (3.8-10.2); PLATELET COUNT 388 K/MM3 (134-434); RBC 3.74 M/mm3 (3.60-5.2); RDW 14.9 % (11.6-15.6); WHITE BLOOD COUNT 9.3 K/mm3 (4.0-10.0)
[2018-06-26 07:13] LABS: ALBUMIN 3.2 g/dl (3.4-5.0); ALK PHOS 85 U/L (45-117); ANION GAP 7 MMOL/L (8-16); BILIRUBIN,TOTAL 0.4 mg/dL (0.2-1); BLOOD UREA NITROGEN 17 mg/dL (7-18); CALCIUM 8.5 mg/dL (8.5-10.1); CHLORIDE 106 mmol/L (98-107); CO2 26 mmol/L (21-32); CREATININE 1.2 mg/dL (0.55-1.3); GLUCOSE,RANDOM 84 mg/dL (74-106); POTASSIUM 3.1 mmol/L (3.5-5.1); SGOT/AST 9 U/L (15-37); SGPT/ALT 12 U/L (13-61); SODIUM 139 mmol/L (136-145); TOT PROT 7.8 g/dl (6.4-8.2)
--- NOTE | 2018-06-26 09:39 | PN ---
Progress Note (short form) - Note Progress Note: NEUROSURGERY CONSULT DICTATED Pt well known to me Operated on for large R frontal falcine malignant meningioma with brain edema causing seizures 8 years ago, with residual L hemiparesis. Received adjuvant RT and rehab and followed on and off for 10 years. c/o left-hand and leg weakness , numbness for the past 5 days. The patient reports dropping items from her hand or episodes of gripping onto things for too long. No H/A or sz. No fever or chill. PE: AF, VSS HENNT- frontal craniectomy defect; neck- supple; Cor- RR; Lungs- CTA B; Abd- benign, obese; Ext- no sign of DVT CN- intact; Motor- L hemiparesis 4-4+, Sensation- intact LT; DTR- hyporeflexic WBC 9.3, Hgb 10.5; UA- 11 WBC, 4 RBC, 1+ lekocyte esteradse Head CT- R frontal craniectomy, encephalomalacia, no sign of recurrent tumor, no change c/w multiple prior CT's; small amount of encephalocoele which has not changed over the years Pt with stable intracranial anatomy for over 18 years, s/p resection of a large R falcine malignant meningioma s/p ajduvant RT, with stable radiographic (MRI and CT) appearance for almost 2 decades Pt has excellent neurological function considering the extent of disease No neurosurgical intervention nor further followup indicated unless new neuro- imaging findings corresponding with clinical symptomatology Check urine culture
[2018-06-26] MEDS: LOSARTAN 50MG/HCTZ 12.5MG 1 TAB (FP) PO SCH (09:46)
[2018-06-26] MEDS: OXcarbazepine 300 MG TABLET (UD) PO SCH ×2 (09:46→22:18)
[2018-06-26] MEDS: ASPIRIN COATED 81 MG TABLET.EC PO SCH (09:47)
[2018-06-26] MEDS: PANTOPRAZOLE 40 MG TABLET (FP) PO SCH (09:47)
[2018-06-26] MEDS: HEPARIN NA (PORCINE) 5,000 UNITS/ML 1ML VIAL SQ SCH ×2 (09:47→22:18)
[2018-06-26] MEDS: amLODIPine BESYLATE 5 MG TABLET (FP) PO SCH (09:47)
[2018-06-26] MEDS: levETIRAcetam 500 MG TABLET (FP) PO SCH ×2 (09:47→22:18)
--- NOTE | 2018-06-26 10:17 | EKG ---
Test Reason : Blood Pressure : / mmHG Vent. Rate : 093 BPM Atrial Rate : 093 BPM P-R Int : 162 ms QRS Dur : 076 ms QT Int : 342 ms P-R-T Axes : 036 024 010 degrees QTc Int : 425 ms NORMAL SINUS RHYTHM LOW VOLTAGE QRS ABNORMAL ECG WHEN COMPARED WITH ECG OF 16-APR-2017 03:14, NO SIGNIFICANT CHANGE WAS FOUND Confirmed by TATYANA ARTIS MD ([id number]) on 06/26/2018 10:17:31 AM Referred By: Confirmed By:TATYANA ARTIS MD
[2018-06-26] MEDS ORDERED: guaiFENesin 200 MG/10 ML 10 ML UNIT-DOSE CUPS PO PRN (11:22)
[2018-06-26] MEDS ORDERED: ALPRAZolam 0.25 MG TABLET PO ONE ×2 (12:00→20:45)
--- NOTE | 2018-06-26 13:01 | ECHO ---
Name: ROHAN HUDSON Exam:Adult Echocardiogram Study Date: 06/26/2018 11:23 AM Age: 48 yrs Reason For Study: CVA Height: 65 in Weight: 205 lb BSA: 2.0 m2 MMode/2D Measurements & Calculations IVSd: 0.72 cm Ao root diam: 2.6 cm LVIDd: 4.8 cm LA dimension: 3.4 cm LVIDs: 2.9 cm LVPWd: 0.71 cm EDV(Teich): 107.8 ml LVOT diam: 2.1 cm ESV(Teich): 32.7 ml Doppler Measurements & Calculations MV E max david: 59.8 cm/sec Ao V2 max: 149.7 cm/sec MV A max david: 59.2 cm/sec Ao max P.0 mmHg MV E/A: 1.0 MV dec time: 0.21 sec SHAMAR(V,D): 1.8 cm2 LV V1 max P.6 mmHg SV(LVOT): 58.4 ml LV V1 mean P.7 mmHg LV V1 max: 81.2 cm/sec LV V1 mean: 60.3 cm/sec LV V1 VTI: 17.6 cm Med Peak E' David: 5.4 cm/sec Med E/e': 11.2 Lat Peak E' David: 9.2 cm/sec Lat E/e': 6.5 Procedure The study was technically good with many images being of high quality. Left Ventricle The left ventricular size, thickness and function are normal. Ejection Fraction = 60-65%. The transmi tral spectral Doppler flow pattern is normal for age. Right Ventricle The right ventricle is normal in size and function. Atria Normal left and right atrial size and function. Right atrial size is normal. Mitral Valve The mitral valve is grossly normal. There is trace mitral regurgitation. Tricuspid Valve The tricuspid valve is not well visualized, but is grossly normal. There is trace tricuspid regurgita tion. There was insufficient TR detected to calculate RV systolic pressure. Aortic Valve The aortic valve opens well. The aortic valve is trileaflet. No aortic regurgitation is present. Pulmonic Valve The pulmonic valve is not well visualized. Great Vessels The aortic root is normal size. Pericardium/Pleura Trivial pericardial effusion not hemodynamically significant. Interpretation Summary There is no comparison study available. No cardiac source of emboli noted. The left ventricular size, thickness and function are normal The right ventricle is normal in size and function. Ejection Fraction = 60-65%. There is trace mitral regurgitation. There is trace tricuspid regurgitation. Be Banda MD 06/26/2018 01:00 PM
--- NOTE | 2018-06-26 18:57 | PN ---
Progress Note, Physician - Current Medication List Current Medications: Active Medications Amlodipine Besylate (Norvasc -) 5 mg PO DAILY [facility] Last Admin: 06/26/18 09:47 Dose: 5 mg Aspirin (Ecotrin -) 81 mg PO DAILY [facility] Last Admin: 06/26/18 09:47 Dose: 81 mg Atorvastatin Calcium (Lipitor -) 20 mg PO HS [facility] Last Admin: 06/25/18 22:05 Dose: 20 mg Guaifenesin (Robitussin -) 10 ml PO Q6H PRN PRN Reason: COUGH HCTZ/Losartan Potassium (Hyzaar -) 1 tab PO DAILY [facility] Last Admin: 06/26/18 09:46 Dose: 1 tab Heparin Sodium (Porcine) (Heparin -) 5,000 unit SQ BID [facility] Last Admin: 06/26/18 09:47 Dose: 5,000 unit Sodium Chloride (Normal Saline -) 1,000 mls @ 42 mls/hr IV ASDIR [facility] Last Admin: 06/25/18 22:05 Dose: Not Given Levetiracetam (Keppra -) 500 mg PO BID [facility] Last Admin: 06/26/18 09:47 Dose: 500 mg Oxcarbazepine (Trileptal -) 300 mg PO BID [facility] Last Admin: 06/26/18 09:46 Dose: 300 mg Pantoprazole Sodium (Protonix -) 40 mg PO DAILY [facility] Last Admin: 06/26/18 09:47 Dose: 40 mg - Objective Vital Signs: Vital Signs Temperature 98.3 F 06/26/18 14:00 Pulse Rate 80 06/26/18 14:00 Respiratory Rate 20 06/26/18 14:00 Blood Pressure 137/74 06/26/18 14:00 O2 Sat by Pulse Oximetry (%) 98 06/26/18 08:22 Labs: CBC, BMP 06/26/18 06:30 06/26/18 06:30 INR, PTT INR 0.97 (0.83-1.09) 06/24/18 18:05
--- NOTE | 2018-06-26 19:35 | CONS ---
DATE OF CONSULTATION: 06/26/2018 CHIEF COMPLAINT: Intermittent left hemiparesis. HISTORY OF PRESENT ILLNESS: The patient is a 48-year-old right-handed female with a history of right frontal falcine malignant meningioma status post excision in 2000 followed by adjuvant radiotherapy and acute rehabilitation who complains of the last 5-day history of increasing left-sided upper and lower extremity weakness and numbness. She also has decreased dexterity periodically. The patient had initially undergone right-sided craniectomy for excision of a large falcine malignant meningioma with underlying significant brain edema. Craniotomy bone flap was not able to be replaced at that time because of the significant brain edema. The patient had significant hemiparesis postoperatively and underwent acute rehabilitation after which she underwent a course of postoperative radiotherapy because of a diagnosis of locally invasive, malignant meningioma. She never had any recurrence over the years. She has undergone multiple CT scans and MRI examination and was not found to have significant new disease. She was left with a mild left-sided hemiparesis and had generally been reasonably functional. She denies any increasing headache, nausea, vomiting, or seizure activity. She does have a seizure disorder even prior to surgery. She has been on multiple medications for seizure control. She does complain of the last 5-day history of left-sided decreased hand dexterity as well as left leg dexterity. She has had these similar symptoms, but they are slightly more noticeable. PAST MEDICAL HISTORY: Significant for malignant meningioma, hypertension, obesity. MEDICATIONS: Include losartan/hydrochlorothiazide, subcutaneous heparin, Keppra , Trileptal, Norvasc, Lipitor, baby aspirin, Protonix. ALLERGIES: PHENYTOIN. SOCIAL HISTORY: She does not smoke or drink. She lives at home. FAMILY HISTORY: Significant for lung cancer in her father and bone cancer in her mother. They have both . REVIEW OF SYSTEMS: Otherwise negative for major constitutional, head, neck, cardiovascular, pulmonary, gastrointestinal, genitourinary, endocrinologic, neurologic, or psychological problems except for the above. PHYSICAL EXAMINATION: Vital Signs: Temperature 97.1, blood pressure 132/74, pulse rate 108, O2 saturation 98% on room air. HEENT: Shows her to be normocephalic, atraumatic, anicteric. There is a right frontal incision, which has healed. There is a craniectomy defect. The area is soft and is not under tense pressure. Neck: Supple with no carotid bruits. Coronary: Demonstrates regular rhythm. Lungs: Clear bilaterally. Abdomen: Obese but benign. Extremities: Show no obvious signs of DVT. Neurologic: She is awake, alert, and oriented x4. Her speech is fluent. Cranial nerve examination is intact 2-12. Motor examination shows left-sided hemiparesis with 4/5 to 4+/5 depending on muscle group. Sensory examination is intact to light touch. DTR's are hyporeflexive throughout. Her toes are downgoing. There is no pathological or long-tract sign. Gait is not tested for safety reasons. DIAGNOSTIC DATA: Laboratory examination shows the initial white blood cell count 10.7, now 9.3, hemoglobin 10.5, platelet count 388,000, INR 0.97. Serum sodium is 139, potassium 3.1, BUN 17, creatinine 1.2. LFTs are normal. Troponin less than 0.02. Urinalysis shows 1+ leukocyte esterase. There are 11 WBCs and [address] scan of the head from 2 days ago demonstrated right frontal craniectomy. There is right frontal encephalomalacia. 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 This does not appear changed from her prior studies. There is no intracranial hemorrhage or new mass lesions. IMPRESSION: 1. History of right frontal falcine malignant meningioma post excision and postoperative adjuvant radiotherapy with residual left hemiparesis. 2. History of seizure disorder. 3. Hypertension. 4. Obesity. RECOMMENDATIONS: The patient presents with a 5-day history of increasing weakness of the left upper and lower extremity. On my examination today, she has slight weakness of the left upper and lower extremity as previously. She has always had residual hemiparesis since the larger right frontal falcine meningioma excision. It was a malignant meningioma with microinvasion and the significant associated vasogenic edema. She did well from the resection even though she was left with a hemiparesis from tumor invasion. She did receive postoperative radiotherapy, and there has been no sign of tumor recurrence over the past decade plus. She had been followed on and off for at least a decade, and she has had multiple imaging studies through the years, which showed no tumor recurrence. No neurosurgical intervention is indicated and further neurosurgical follow up is probably not indicated either. She can follow up with neurologist for maintenance of her seizure control and her residual hemiparesis. Should she develop further neurological symptoms, MRI of the brain with and without gadolinium could be considered. There is no CT scan evidence of tumor recurrence at this time or any increasing edema/mass affect. Her radiographic appearance has remained stable for over a decade and a half. The above was discussed with the patient at bedside. All questions were answered. ABHIJIT BARAJAS M.D. [id number] MTDD
--- NOTE | 2018-06-26 19:46 | PN ---
Progress Note (short form) - Note Progress Note: Patient denies further weakness. Exam reveals patient back to baseline. Neurosurgical consultation reviewed. Possible breakthrough seizure. Urine culture pending.
[2018-06-26] MEDS ORDERED: PT OWN MED DRAWER 7, Y5N ONE (21:50)
[2018-06-26] MEDS: ATORVASTATIN CA 20 MG TABLET (FP) PO SCH (22:18)
--- NOTE | 2018-06-27 07:17 | PN ---
Progress Note (short form) - Note Progress Note: NEUROSURGERY No new complaint, back to baseline Some tongue swelling responding to benadyl, not on new meds, possible seasonal allergy Operated on for large R frontal falcine malignant meningioma with brain edema causing seizures 18 years ago, with residual L hemiparesis. Received adjuvant RT and rehab and followed on and off for 10 years. No H/A or witnessed sz. No fever or chill. PE: AF, VSS HENNT- frontal craniectomy defect; neck- supple; Cor- RR; Lungs- CTA B; Abd- benign, obese; Ext- no sign of DVT Urine culture pending CN- intact; Motor- L hemiparesis 4-4+, Sensation- intact LT; DTR- hyporeflexic Head CT- R frontal craniectomy, encephalomalacia, no sign of recurrent tumor, no change c/w multiple prior CT's; small amount of encephalocoele which has not changed over the years Pt with stable intracranial anatomy for over 18 years, s/p resection of a large R falcine malignant meningioma s/p ajduvant RT, with stable radiographic (MRI and CT) appearance for almost 2 decades Pt has excellent neurological function considering the prior extent of disease r/o breakthrough sz per neurology No neurosurgical intervention nor further followup indicated unless new neuro- imaging (CT or MRI) findings corresponding with clinical symptomatology
[2018-06-27] MEDS ORDERED: PT OWN MED DRAWER 7, Y5N ONE ×2 (09:41→21:15)
[2018-06-27] MEDS: HEPARIN NA (PORCINE) 5,000 UNITS/ML 1ML VIAL SQ SCH ×2 (09:51→21:52)
[2018-06-27] MEDS: ASPIRIN COATED 81 MG TABLET.EC PO SCH (09:52)
[2018-06-27] MEDS: PANTOPRAZOLE 40 MG TABLET (FP) PO SCH (09:52)
[2018-06-27] MEDS: amLODIPine BESYLATE 5 MG TABLET (FP) PO SCH (09:52)
[2018-06-27] MEDS: LOSARTAN 50MG/HCTZ 12.5MG 1 TAB (FP) PO SCH (09:53)
[2018-06-27] MEDS: levETIRAcetam 500 MG TABLET (FP) PO SCH ×2 (09:53→21:52)
[2018-06-27] MEDS: OXcarbazepine 300 MG TABLET (UD) PO SCH ×2 (09:54→21:54)
[2018-06-27] MEDS: ATORVASTATIN CA 20 MG TABLET (FP) PO SCH (21:52)
--- NOTE | 2018-06-27 23:49 | PN ---
Progress Note, Physician History of Present Illness: Pt unable to tolerate MRI - Current Medication List Current Medications: Active Medications Amlodipine Besylate (Norvasc -) 5 mg PO DAILY [facility] Last Admin: 06/27/18 09:52 Dose: 5 mg Aspirin (Ecotrin -) 81 mg PO DAILY [facility] Last Admin: 06/27/18 09:52 Dose: 81 mg Atorvastatin Calcium (Lipitor -) 20 mg PO HS [facility] Last Admin: 06/27/18 21:52 Dose: 20 mg Guaifenesin (Robitussin -) 10 ml PO Q6H PRN PRN Reason: COUGH HCTZ/Losartan Potassium (Hyzaar -) 1 tab PO DAILY [facility] Last Admin: 06/27/18 09:53 Dose: 1 tab Heparin Sodium (Porcine) (Heparin -) 5,000 unit SQ BID [facility] Last Admin: 06/27/18 21:52 Dose: 5,000 unit Sodium Chloride (Normal Saline -) 1,000 mls @ 42 mls/hr IV ASDIR [facility] Last Admin: 06/25/18 22:05 Dose: Not Given Levetiracetam (Keppra -) 500 mg PO BID [facility] Last Admin: 06/27/18 21:52 Dose: 500 mg Oxcarbazepine (Trileptal -) 300 mg PO BID [facility] Last Admin: 06/27/18 21:54 Dose: 300 mg Pantoprazole Sodium (Protonix -) 40 mg PO DAILY [facility] Last Admin: 06/27/18 09:52 Dose: 40 mg - Objective Vital Signs: Vital Signs Temperature 98.1 F 06/27/18 19:05 Pulse Rate 80 06/27/18 19:05 Respiratory Rate 20 06/27/18 19:05 Blood Pressure 110/73 06/27/18 19:05 O2 Sat by Pulse Oximetry (%) 99 06/27/18 09:00 Constitutional: Yes: Well Nourished Cardiovascular: Yes: WNL, Regular Rate and Rhythm Respiratory: Yes: WNL, Regular, CTA Bilaterally Gastrointestinal: Yes: WNL, Normal Bowel Sounds, Soft Extremities: Yes: WNL Edema: No Labs: CBC, BMP 06/26/18 06:30 06/26/18 06:30 INR, PTT INR 0.97 (0.83-1.09) 06/24/18 18:05 Problem List - Problems (1) Weakness Assessment/Plan: Pt refuses to attempt MRI again Will await neuro recommendations Outpt open MRI Possible breakthrough seizures PT eval Code(s): R53.1 - WEAKNESS (2) Seizure Assessment/Plan: Cont meds Code(s): R56.9 - UNSPECIFIED CONVULSIONS (3) Meningioma, cerebral Code(s): D32.0 - BENIGN NEOPLASM OF CEREBRAL MENINGES
--- NOTE | 2018-06-28 07:43 | PN ---
Progress Note (short form) - Note Progress Note: NEUROSURGERY No new complaint Can't tolerate closed MRI PE: AF, VSS HENNT- frontal craniectomy defect; neck- supple; Cor- RR; Lungs- CTA B; Abd- benign, obese; Ext- no sign of DVT Urine culture pending CN- intact; Motor- L hemiparesis 4-4+, Sensation- intact LT; DTR- hyporeflexic Head CT- R frontal craniectomy, encephalomalacia, no sign of recurrent tumor, no change c/w multiple prior CT's; small amount of encephalocoele which has not changed over the years Pt with stable intracranial anatomy for over 18 years, s/p resection of a large R falcine malignant meningioma s/p ajduvant RT, with stable radiographic (MRI and CT) appearance for almost 2 decades Could consider outpatient open MRI as needed r/o breakthrough sz per neurology No neurosurgical intervention nor further followup indicated unless new neuro- imaging (CT or MRI) findings corresponding with clinical symptomatology
[2018-06-28 07:57] LABS: BASO % 0.4 % (0-2.0); EOS % 2.9 % (0-4.5); HEMATOCRIT 33.3 % (32.4-45.2); HEMOGLOBIN 10.9 GM/dL (10.7-15.3); LYMPH % 28.5 % (8-40); MCH 28.6 pg (25.7-33.7); MCHC 32.7 g/dl (32.0-36.0); MEAN CELL VOLUME 87.7 fl (80-96); MEAN PLT VOLUME 6.7 fl (7.5-11.1); MONO % 7.4 % (3.8-10.2); NEUT % 60.8 % (42.8-82.8); PLATELET COUNT 421 K/MM3 (134-434); RDW 15.2 % (11.6-15.6); WHITE BLOOD COUNT 10.3 K/mm3 (4.0-10.0)
[2018-06-28 08:22] LABS: ALBUMIN 3.3 g/dl (3.4-5.0); ALK PHOS 85 U/L (45-117); ANION GAP 4 MMOL/L (8-16); BILIRUBIN,TOTAL 0.3 mg/dL (0.2-1); BLOOD UREA NITROGEN 20 mg/dL (7-18); CALCIUM 9.1 mg/dL (8.5-10.1); CHLORIDE 104 mmol/L (98-107); CO2 30 mmol/L (21-32); CREATININE 1.2 mg/dL (0.55-1.3); GLUCOSE,RANDOM 86 mg/dL (74-106); POTASSIUM 3.6 mmol/L (3.5-5.1); SGOT/AST 10 U/L (15-37); SGPT/ALT 16 U/L (13-61); SODIUM 138 mmol/L (136-145); TOT PROT 8.1 g/dl (6.4-8.2)
[2018-06-28] MEDS ORDERED: PT OWN MED DRAWER 7, Y5N ONE (11:18)
[2018-06-28] MEDS: HEPARIN NA (PORCINE) 5,000 UNITS/ML 1ML VIAL SQ SCH (11:26)
[2018-06-28] MEDS: ASPIRIN COATED 81 MG TABLET.EC PO SCH (11:26)
[2018-06-28] MEDS: amLODIPine BESYLATE 5 MG TABLET (FP) PO SCH (11:27)
[2018-06-28] MEDS: PANTOPRAZOLE 40 MG TABLET (FP) PO SCH (11:27)
[2018-06-28] MEDS: levETIRAcetam 500 MG TABLET (FP) PO SCH (11:27)
[2018-06-28] MEDS: LOSARTAN 50MG/HCTZ 12.5MG 1 TAB (FP) PO SCH (11:28)
[2018-06-28] MEDS: OXcarbazepine 300 MG TABLET (UD) PO SCH (11:28)
[2018-06-28] MEDS ORDERED: diphenhydrAMINE HCL 25 MG CAPSULE (FP) PO ONE (11:30)
[2018-06-28 14:31] VITALS: PULSE 82
[2018-06-28 15:18] VITALS: BP 112/66; TEMP 97.6
== END 2018-06-28 16:56 | disposition home or self-care (01) | DRG 58 ==
LOC: JER 15:51 → JERBED 19:30 → J4W 06-25 15:45
PROVIDERS: ADMIT Internal Medicine; ATTEND Internal Medicine
DX: D32.0 Benign neoplasm of cerebral meninges (principal); R53.1 Weakness; K14.0 Glossitis; I10 Essential (primary) hypertension; K21.9 Gastro-esophageal reflux disease without esophagitis; E66.9 Obesity, unspecified; Z68.41 Body mass index [BMI] 40.0-44.9, adult; G81.94 Hemiplegia, unspecified affecting left nondominant side; Q01.9 Encephalocele, unspecified; G93.89 Other specified disorders of brain
CPT/HCPCS: 36415; 70450-TC; 80053; 81003; 82465; 82550; 83718; 83721; 84478; 84484; 84703; 85025; 85610; 86850; 86900; 86901; 87086; 93005; 93010; 93306-TC; 93880-TC; 97116-GP; 97161-GP; 99284-25; J1644; J7030

== ENCOUNTER 2018-08-29 13:18 | Emergency (ER) | payer OTHER ==
[2018-08-29 13:31] VITALS: BP 127/78; PULSE 89; TEMP 98.5; BMI 36.6
--- NOTE | 2018-08-29 13:32 | PDOC ---
Rapid Medical Evaluation Chief Complaint: Nausea/Vomiting Time Seen by Provider: 08/29/18 13:28 Medical Evaluation: Allergies Allergy/AdvReac Type Severity Reaction Status Date / Time banana Allergy Verified 06/26/18 10:03 phenytoin sodium Allergy Swelling Verified 06/24/18 16:01 [From Dilantin] phenytoin sodium extended Allergy Swelling Verified 06/24/18 16:01 [From Dilantin] 08/29/18 13:28 The patient c/o: n/v x 2 since yesterday, felt heart racing intermittently, denies sob, cp, no fever, diarrhea, or urinary complaints, no abd pain Patient on brief exam: vss, No abd pain Patient ordered for: ekg, urine, comp, cbc,lipase Patient to proceed to the ED Discharge Disposition - Diagnosis Nausea & vomiting - Discharge Dispostion Condition at time of disposition: Stable - Referrals - Patient Instructions - Post Discharge Activity
[2018-08-29] MEDS ORDERED: ONDANSETRON *ODT* 4 MG TABLET SL ONE (14:30)
[2018-08-29 14:34] LABS: BASO % 0.6 % (0-2.0); EOS % 2.4 % (0-4.5); HEMATOCRIT 37.2 % (32.4-45.2); LYMPH % 37.5 % (8-40); MCH 28.5 pg (25.7-33.7); MCHC 32.3 g/dl (32.0-36.0); MEAN CELL VOLUME 88.2 fl (80-96); MEAN PLT VOLUME 6.8 fl (7.5-11.1); NEUT % 50.5 % (42.8-82.8); PLATELET COUNT 422 K/MM3 (134-434); RBC 4.22 M/mm3 (3.60-5.2); RDW 14.5 % (11.6-15.6); WHITE BLOOD COUNT 8.9 K/mm3 (4.0-10.0)
[2018-08-29] MEDS ORDERED: ONDANSETRON *ODT* 4 MG TABLET ONE (14:36)
--- NOTE | 2018-08-29 14:54 | PDOC ---
History of Present Illness - General Chief Complaint: Nausea/Vomiting Stated Complaint: VOMITING/NEUSEA/RACING HEART Time Seen by Provider: 08/29/18 13:28 - History of Present Illness Initial Comments: 48yo F with PMH of meningioma s/p resection, seizures (unsure what type), HTN presenting with nausea, vomiting, and heart palpitations. Patient states she had a seizure two days ago. Since it was "not a big one," patient did not seek medical evaluation. Last seizure before that one was about a year ago. Patient woke up this morning with heart palpitations and an irregular heart beat. She says she has felt this way before, namely when she feels stressed. 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 Endorses nausea and two episodes of NBNB vomiting today. No abdominal pain or diarrhea. Had some chicken today which her asymptomatic son had also. She has left hand weakness and numbness which is at its baseline and has not changed since May. Has a 3/10 headache and requesting tylenol. No fevers, but endorses chills. PCP: Dr. Chris Espinoza Neuro: Dr. Vallejo Past History - Past Medical History Allergies/Adverse Reactions: Allergies Allergy/AdvReac Type Severity Reaction Status Date / Time banana Allergy Verified 06/26/18 10:03 phenytoin sodium Allergy Swelling Verified 06/24/18 16:01 [From Dilantin] phenytoin sodium extended Allergy Swelling Verified 06/24/18 16:01 [From Dilantin] Home Medications: Ambulatory Orders levETIRAcetam [Keppra -] 1,500 mg PO BID 09/23/11 Amlodipine Besylate [Norvasc -] 5 mg PO DAILY 04/10/17 Losartan/Hydrochlorothiazide [Losartan-Hctz 50-12.5 mg Tab] 1 each PO DAILY Omeprazole 40 mg PO DAILY 05/12/18 Nitrofurantoin Monohyd/M-Cryst [Macrobid -] 100 mg PO BID #9 capsule 08/29/18 Oxcarbazepine [Trileptal -] 150 mg PO DAILY 08/29/18 Topiramate [Topamax] 100 mg PO DAILY 08/29/18 COPD: No GI Disorders: Yes (gerd) HTN: Yes Seizures: Yes - Surgical History Neurologic Surgery: Yes (meningioma resection 2000) - Immunization History Immunization Up to Date: Yes - Suicide/Smoking/Psychosocial Hx Smoking Status: No Smoking History: Unknown if ever smoked Have you smoked in the past 12 months: No Number of Cigarettes Smoked Daily: 1 Information on smoking cessation initiated: No 'Breaking Loose' booklet given: 06/25/18 Hx Alcohol Use: No Drug/Substance Use Hx: No Substance Use Type: None Hx Substance Use Treatment: No Review of Systems - Review of Systems Comments:: Constitutional: no fever, +chills HEENT: no throat pain, no dysphagia Cardiovascular: no chest pain, +palpitations Respiratory: no cough, no shortness of breath Gastrointestinal: no abdominal pain, + nausea Genitourinary: no dysuria, no frequency Musculoskeletal: no myalgia, no arthralgia Skin: no rash, no itching Neurologic: +headache, no weakness *Physical Exam - Vital Signs Last Vital Signs Temp Pulse Resp BP Pulse Ox 98.5 F 89 18 127/78 97 08/29/18 13:26 08/29/18 13:26 08/29/18 13:26 08/29/18 13:26 08/29/18 13:26 - Physical Exam Comments: General: Awake, alert, and fully oriented, in no acute distress Head: No signs of trauma Eyes: EOMI, sclera anicteric ENT: Moist mucus membranes Neck: Normal ROM, supple Lungs: Lungs clear, Normal breath sounds Cardio: Regular rhythm, S1 and S2 present Abdomen: Soft, nontender. No guarding, no rebound, no masses Extremities: Normal range of motion, Distal pulses present SKIN: Warm, Dry, normal turgor Neurologic: Cranial nerves II through XII grossly intact. Normal speech. Decreased sensation and strength in E ED Treatment Course - LABORATORY CBC & Chemistry Diagram: 08/29/18 13:50 08/29/18 13:50 - ADDITIONAL ORDERS Additional order review: 08/29/18 13:50 RBC 4.22 MCV 88.2 MCHC 32.3 RDW 14.5 MPV 6.8 L Neutrophils % 50.5 Lymphocytes % 37.5 D Monocytes % 9.0 Eosinophils % 2.4 Basophils % 0.6 - Medications Given in the ED: ED Medications Discontinued Medications Generic Name Dose Route Start Last Admin Trade Name Freq PRN Reason Stop Dose Admin Ondansetron HCl 4 mg 08/29/18 14:30 08/29/18 14:38 Zofran Odt - SL 08/29/18 14:31 4 mg ONCE ONE Administration Medical Decision Making - Medical Decision Making 48yo F with PMH of meningioma s/p resection, seizures (unsure what type), HTN presenting with nausea, vomiting, and heart palpitations. DDX including but not limited to electrolyte abnormality, anemia, ACS, MSK, abnormal heart rhythm, food poisoning, gastroenteritis, EKG, Labs, CXR 4mg zofran ODT 08/29/18 14:53 EKG: rate 73, Qtc 462, NSR, low voltage QRS 08/29/18 16:43 CBC WBC 8.9 K/mm3 (4.0-10.0) 08/29/18 13:50 RBC 4.22 M/mm3 (3.60-5.2) 08/29/18 13:50 Hgb 12.0 GM/dL (10.7-15.3) 08/29/18 13:50 Hct 37.2 % (32.4-45.2) 08/29/18 13:50 MCV 88.2 fl (80-96) 08/29/18 13:50 MCH 28.5 pg (25.7-33.7) 08/29/18 13:50 MCHC 32.3 g/dl (32.0-36.0) 08/29/18 13:50 RDW 14.5 % (11.6-15.6) 08/29/18 13:50 Plt Count 422 K/MM3 (134-434) 08/29/18 13:50 MPV 6.8 fl (7.5-11.1) L 08/29/18 13:50 Absolute Neuts (auto) 4.5 K/mm3 (1.5-8.0) 08/29/18 13:50 Neutrophils % 50.5 % (42.8-82.8) 08/29/18 13:50 Lymphocytes % 37.5 % (8-40) D 08/29/18 13:50 Monocytes % 9.0 % (3.8-10.2) 08/29/18 13:50 Eosinophils % 2.4 % (0-4.5) 08/29/18 13:50 Basophils % 0.6 % (0-2.0) 08/29/18 13:50 Nucleated RBC % 0 % (0-0) 08/29/18 13:50 No anemia or leukocytosis CMP Sodium 140 mmol/L (136-145) 08/29/18 13:50 Potassium 3.7 mmol/L (3.5-5.1) 08/29/18 13:50 Chloride 104 mmol/L (98-107) 08/29/18 13:50 Carbon Dioxide 28 mmol/L (21-32) 08/29/18 13:50 Anion Gap 8 MMOL/L (8-16) 08/29/18 13:50 BUN 18 mg/dL (7-18) 08/29/18 13:50 Creatinine 1.5 mg/dL (0.55-1.3) H 08/29/18 13:50 Est GFR (CKD-EPI)AfAm 46.60 08/29/18 13:50 Est GFR (CKD-EPI)NonAf 40.20 08/29/18 13:50 Random Glucose 91 mg/dL (74-106) 08/29/18 13:50 Calcium 8.9 mg/dL (8.5-10.1) 08/29/18 13:50 Total Bilirubin 0.4 mg/dL (0.2-1) 08/29/18 13:50 AST 30 U/L (15-37) 08/29/18 13:50 ALT 21 U/L (13-61) 08/29/18 13:50 Alkaline Phosphatase 105 U/L (45-117) 08/29/18 13:50 Troponin I < 0.02 ng/ml (0.00-0.05) 08/29/18 13:50 Total Protein 8.7 g/dl (6.4-8.2) H 08/29/18 13:50 Albumin 3.7 g/dl (3.4-5.0) 08/29/18 13:50 Lipase 250 U/L (73-393) 08/29/18 13:50 Serum , Qual Negative 08/29/18 13:50 Cr elevated 1.5 Electrolytes otherwise unremarkable Tpn undetectable CXR: A single AP view the chest is submitted. Since 04/16/2017 is a slightly better inspiration with clear lungs and prominent mediastinum. Correlation recommended. UA equivocal for infection with 1+LE, 13 WBC, Epithelials 14.7, and Bacteria 284.7 Will treat with macrobid UTI may have caused her seizure two days ago IV fluids given Patient states she feels better Prescription sent to pharmacy Discharged *DC/Admit/Observation/Transfer Diagnosis at time of Disposition: Nausea & vomiting Qualifiers: Vomiting type: unspecified Vomiting Intractability: unspecified Qualified Code( s): R11.2 - Nausea with vomiting, unspecified - Discharge Dispostion Disposition: HOME Condition at time of disposition: Stable - Prescriptions Prescriptions: Nitrofurantoin Monohyd/M-Cryst [Macrobid -] 100 mg PO BID #9 capsule - Referrals Schedule a call back: keppra/topamax level Referrals: Chris Espinoza MD [Primary Care Provider] - - Patient Instructions Printed Discharge Instructions: DI for Urinary Tract Infection (UTI), DI for Palpitations Additional Instructions: You came into the ED for nausea, vomiting, and palpitations. Blood work and EKG was within normal limits. Your urinalysis showed an infection. Prescription sent to your pharmacy. Take as instructed. Follow-up with you primary care physician this week to discuss this ED visit and to further evaluate your symptoms. Your care is not complete until you do so. Call and make an appointment. Immediate medical attention is required if: you pass out, have any chest pain, shortness of breath, severe headaches, changes in vision, focal numbness or weakness, any severe abdominal pain, any black tarry stool, or any new or concerning symptoms. If you think you are having an emergency, call for emergency medical services or present to the emergency department right away. - Post Discharge Activity
[2018-08-29 14:57] LABS: ALBUMIN 3.7 g/dl (3.4-5.0); ALK PHOS 105 U/L (45-117); ANION GAP 8 MMOL/L (8-16); BILIRUBIN,TOTAL 0.4 mg/dL (0.2-1); BLOOD UREA NITROGEN 18 mg/dL (7-18); CALCIUM 8.9 mg/dL (8.5-10.1); CHLORIDE 104 mmol/L (98-107); CO2 28 mmol/L (21-32); CREATININE 1.5 mg/dL (0.55-1.3); GLUCOSE,RANDOM 91 mg/dL (74-106); LIPASE 250 U/L (73-393); POTASSIUM 3.7 mmol/L (3.5-5.1); SGOT/AST 30 U/L (15-37); SGPT/ALT 21 U/L (13-61); SODIUM 140 mmol/L (136-145); TOT PROT 8.7 g/dl (6.4-8.2)
[2018-08-29] MEDS ORDERED: SODIUM CHLORIDE 1,000 ML IV STA (15:20)
--- NOTE | 2018-08-29 15:45 | PDOC ---
Documentation entered by Hannah Ashford SCRIBE, acting as scribe for Siva Motley MD. Siva Motley MD: This documentation has been prepared by the Dejon lujan Adrianna, SCRIBE, under my direction and personally reviewed by me in its entirety. I confirm that the documentation accurately reflects all work, treatment, procedures, and medical decision making performed by me. Attending Attestation - Resident Resident Name: Zee Doll - ED Attending Attestation I have performed the following: I have examined & evaluated the patient, The case was reviewed & discussed with the resident, I agree w/resident's findings & plan - HPI HPI: 08/29/18 15:35 48-year-old female with history of seizures well-controlled on keppra and topamax presents today with seizure 2d ago without injury, feels prompted by stress but otherwise no red flags or medication changes. Restarted her meds without otherwise feeling back to baseline until yesterday afternoon, when developed nausea with decreased appetite and heartburn. no abd pain/cp/cough/ sob. no f/c. takes PPI prilosec, doesn't recall having egd in the past followed by Dr. Vallejo - Physicial Exam PE: 08/29/18 15:42 vss well appearing, atraumatic neuro exam normal, baseline LUE 4/5 weakness dry mucosa, no jaundice/pallor s1s2 rrr, ctab abd soft/nt/nd bs nl - Medical Decision Making 08/29/18 15:42 48-year-old female with history of seizures baseline left-sided weakness presents with isolated episode of seizure 2 days ago and now with nausea/ dyspepsia/decreased appetite for one day. Vital signs are stable with benign abdominal exam, baseline neurological exam. Question gastritis flare, rule out biliary versus pancreatic pathology. Check labs including levels, urinalysis antacid, ivf reassess and dispo accordingly
[2018-08-29] MEDS ORDERED: ACETAMINOPHEN 325 MG TABLET (FP) PO ONE (16:11)
[2018-08-29] MEDS ORDERED: ACETAMINOPHEN 325 MG TABLET (FP) ONE (16:17)
[2018-08-29 16:18] LABS: EPI CELLS 14.7 /HPF (0-5/HPF); HYALINE CASTS 8 /lpf (0-8); URINE APPEARANCE CLEAR; URINE BACTERIA 284.7 /hpf (NEGATIVE); URINE BILIRUBIN NEGATIVE (NEGATIVE); URINE COLOR YELLOW; URINE GLUCOSE (UA) NEGATIVE (NEGATIVE); URINE KETONE TRACE (NEGATIVE); URINE LEUK ESTERASE 1+ (NEGATIVE); URINE NITRITE NEGATIVE (NEGATIVE); URINE PROTEIN NEGATIVE (NEGATIVE); URINE RBC 6 /hpf (0-4); URINE UROBILINOGEN 0.2 mg/dL (0.2-1.0); URINE WBC 13 /hpf (0-5)
[2018-08-29] MEDS ORDERED: NITROFURANTOIN MACROCRYSTAL 50 MG CAPSULE (FP) PO SCH (16:45)
[2018-08-29] MEDS ORDERED: NITROFURANTOIN MACROCRYSTAL 50 MG CAPSULE (FP) ONE (16:56)
--- NOTE | 2018-08-30 10:07 | EKG ---
Test Reason : Blood Pressure : / mmHG Vent. Rate : 073 BPM Atrial Rate : 073 BPM P-R Int : 182 ms QRS Dur : 086 ms QT Int : 420 ms P-R-T Axes : 058 017 027 degrees QTc Int : 462 ms POOR DATA QUALITY, INTERPRETATION MAY BE ADVERSELY AFFECTED NORMAL SINUS RHYTHM LOW VOLTAGE QRS BORDERLINE ECG WHEN COMPARED WITH ECG OF 24-JUN-2018 17:45, NONSPECIFIC T WAVE ABNORMALITY NO LONGER EVIDENT IN ANTEROLATERAL LEADS Confirmed by JULIO CARLOS, ETHAN ([id number]) on 08/30/2018 10:06:58 AM Referred By: Confirmed By:ETHAN KIM MD
== END 2018-08-29 18:15 | disposition home or self-care (01) ==
LOC: JER 13:18
PROC: 3E0337Z Introduction of Electrolytic and Water Balance Substance into Peripheral Vein, Percutaneous Approach (ICD-10-PCS; principal; 2018-08-29)
DX: N39.0 Urinary tract infection, site not specified (principal); G40.909 Epilepsy, unspecified, not intractable, without status epilepticus; K21.9 Gastro-esophageal reflux disease without esophagitis; I10 Essential (primary) hypertension; D32.0 Benign neoplasm of cerebral meninges
CPT/HCPCS: 36415; 71045-TC-FY; 80053; 80177; 80201; 81003; 83690; 84484; 84703; 85025; 87086; 93005; 93010; 96360; 99283-25; J7030; Q0162

== ENCOUNTER 2018-12-26 09:06 | Emergency (ER) | payer OTHER ==
[2018-12-26 09:40] VITALS: BP 117/69; TEMP 98.5; BMI 34.1
[2018-12-26] MEDS ORDERED: KETOROLAC TROMETHAMINE 60 MG/2 ML VIAL IM ONE (10:18)
--- NOTE | 2018-12-26 10:22 | PDOC ---
History of Present Illness - General History Source: Patient - History of Present Illness Occurred: reports: other Upper Extremity Pain Location: left: hand <Eula Damico - Last Filed: 12/26/18 10:39> <Wesley Chun - Last Filed: 12/28/18 20:36> - General Chief Complaint: Weakness Stated Complaint: LT HAND PAIN Time Seen by Provider: 12/26/18 09:52 Past History - Past Medical History Cancer: (BRAIN TUMOR) COPD: No GI Disorders: Yes (gerd) HTN: Yes Seizures: Yes - Surgical History Neurologic Surgery: Yes (meningioma resection 2000) - Immunization History Immunization Up to Date: Yes - Psycho Social/Smoking Cessation Hx Smoking Status: No Smoking History: Never smoked Have you smoked in the past 12 months: No Number of Cigarettes Smoked Daily: 1 Information on smoking cessation initiated: No 'Breaking Loose' booklet given: 06/25/18 Hx Alcohol Use: No Drug/Substance Use Hx: No Substance Use Type: None Hx Substance Use Treatment: No <Eula Damico - Last Filed: 12/26/18 10:39> <Wesley Chun - Last Filed: 12/28/18 20:36> - Past Medical History Allergies/Adverse Reactions: Allergies Allergy/AdvReac Type Severity Reaction Status Date / Time banana Allergy Verified 12/26/18 09:40 phenytoin sodium Allergy Swelling Verified 12/26/18 09:40 [From Dilantin] phenytoin sodium extended Allergy Swelling Verified 12/26/18 09:40 [From Dilantin] Home Medications: Ambulatory Orders levETIRAcetam [Keppra -] 1,500 mg PO BID 09/23/11 Amlodipine Besylate [Norvasc -] 5 mg PO DAILY 04/10/17 Losartan/Hydrochlorothiazide [Losartan-Hctz 50-12.5 mg Tab] 1 each PO DAILY Omeprazole 40 mg PO DAILY 05/12/18 Nitrofurantoin Monohyd/M-Cryst [Macrobid -] 100 mg PO BID #9 capsule 08/29/18 Oxcarbazepine [Trileptal -] 150 mg PO DAILY 08/29/18 Topiramate [Topamax] 100 mg PO DAILY 08/29/18 Naproxen 500 mg PO BID #20 tablet 12/26/18 Review of Systems - Review of Systems Constitutional: No: Chills, Fever Respiratory: No: Shortness of Breath Cardiac (ROS): No: Chest Pain, Lightheadedness, Palpitations Neurological: No: Numbness, Tingling, Weakness <Eula Damico - Last Filed: 12/26/18 10:39> *Physical Exam - Vital Signs Last Vital Signs Temp Pulse Resp BP Pulse Ox 98.5 F 106 H 18 117/69 100 12/26/18 09:37 12/26/18 09:37 12/26/18 09:37 12/26/18 09:37 12/26/18 09:37 - Physical Exam General Appearance: Yes: Appropriately Dressed. No: Apparent Distress HEENT: positive: Normal Voice Neck: positive: Supple Respiratory/Chest: negative: Respiratory Distress Extremity: positive: Tender (to L 2nd MCP joint w/ minimal swelling over dorsum of L 2nd metacarpal, NVI, no forearm/arm swelling) Integumentary: positive: Dry, Warm Neurologic: positive: Fully Oriented, Alert, Normal Mood/Affect, Motor Strength 5/5 <Eula Damico - Last Filed: 12/26/18 10:39> - Vital Signs Last Vital Signs Temp Pulse Resp BP Pulse Ox 98.5 F 102 H 18 117/69 100 12/26/18 09:37 12/26/18 10:32 12/26/18 09:37 12/26/18 09:37 12/26/18 09:37 <Wesley Chun - Last Filed: 12/28/18 20:36> ED Treatment Course - Medications Given in the ED: ED Medications Discontinued Medications Generic Name Dose Route Start Last Admin Trade Name Freq PRN Reason Stop Dose Admin Ketorolac Tromethamine 60 mg 12/26/18 10:18 12/26/18 10:35 Toradol Injection - IM 12/26/18 10:19 60 mg ONCE ONE Administration <Wesley Chun - Last Filed: 12/28/18 20:36> Medical Decision Making - Medical Decision Making 12/26/18 10:15 48-year-old female, history of malignant brain tumor s/p resection in 2000, with normal imaging on follow-up since then, hypertension, here with LUE pain. Patient states for the past 2 weeks, she's had pain that starts in her L hand, most notably to L 2nd MCP joint and radiates all the way to her shoulder. Pain was so severe this morning that she could not dress herself per patient. Denies numbness, tingling upper extremity weakness, or neck pain. No history of similar episode. No recent trauma. No history of known arthritis or gout. Has not taken anything for pain. See exam Atraumatic LUE pain Exam notable for ?minimal swelling w/ ttp to site of L 2nd digit ?arthritis vs other nonspecific inflammation -pain control here -Dc w/ same and pcp f/u for further eval <Eula Damico - Last Filed: 12/26/18 10:39> - Medical Decision Making 12/28/18 20:36 The patient was seen and evaluated in conjunction with ROSE Damico under my direct supervision, ancillary studies were reviewed. I agree with the plan as outlined by ROSE Damico . <Wesley Chun - Last Filed: 12/28/18 20:36> Discharge - Discharge Information Problems reviewed: Yes <Eula Damico - Last Filed: 12/26/18 10:39> <Wesley Chun - Last Filed: 12/28/18 20:36> - Discharge Information Clinical Impression/Diagnosis: Left hand pain Condition: Good Disposition: HOME - Additional Discharge Information Prescriptions: Naproxen 500 mg PO BID #20 tablet - Follow up/Referral Referrals: Chris Espinoza MD [Primary Care Provider] - - Patient Discharge Instructions Patient Printed Discharge Instructions: DI for Hand Pain Additional Instructions: The cause of your hand pain is unclear at this time, but might be arthritis or other inflammatory disorder. Please take medication as directed and follow-up with your PMD for further evaluation - Post Discharge Activity
[2018-12-26] MEDS ORDERED: KETOROLAC TROMETHAMINE 60 MG/2 ML VIAL ONE (10:27)
[2018-12-26 10:33] VITALS: PULSE 102
== END 2018-12-26 11:21 | disposition home or self-care (01) ==
LOC: JER 09:06
PROC: 3E0233Z Introduction of Anti-inflammatory into Muscle, Percutaneous Approach (ICD-10-PCS; principal; 2018-12-26)
DX: M79.642 Pain in left hand (principal); I10 Essential (primary) hypertension; G40.909 Epilepsy, unspecified, not intractable, without status epilepticus; K21.9 Gastro-esophageal reflux disease without esophagitis; Z85.841 Personal history of malignant neoplasm of brain; Z98.890 Other specified postprocedural states
CPT/HCPCS: 96372; 99282-25

== ENCOUNTER 2019-10-21 17:26 | Emergency (ER) | payer OTHER ==
[2019-10-21 17:35] VITALS: BP 126/82; PULSE 118; TEMP 98.3; BMI 33.6
--- NOTE | 2019-10-21 17:38 | PDOC ---
Rapid Medical Evaluation Time Seen by Provider: 10/21/19 17:32 Medical Evaluation: Allergies Allergy/AdvReac Type Severity Reaction Status Date / Time banana Allergy Verified 12/26/18 09:40 phenytoin sodium Allergy Swelling Verified 12/26/18 09:40 [From Dilantin] phenytoin sodium extended Allergy Swelling Verified 12/26/18 09:40 [From Dilantin] 10/21/19 17:32 Pt is a 49 y/o F with PMH of Brain CA, in remission, presents for evaluation of back pain for two weeks. She states that the low back has been hurting intermittently for the past two weeks. Denies trauma. Denies fevers, chills, saddle anesthesia and bladder bowel incontinence Exam: TTP of the low back and L paraspinous muscles Orders: x-ray Pt to proceed to the ER for further evaluation Discharge Disposition - Diagnosis Back pain Qualifiers: Back pain location: low back pain Chronicity: acute Back pain laterality: midline Sciatica presence: without sciatica Qualified Code(s): M54.5 - Low back pain - Referrals Referrals: Chris Espinoza MD [Primary Care Provider] - - Patient Instructions - Post Discharge Activity
[2019-10-21] MEDS ORDERED: diazePAM 5 MG TABLET PO ONE (18:06)
[2019-10-21] MEDS ORDERED: KETOROLAC TROMETHAMINE 30 MG/1 ML VIAL IM ONE (18:06)
--- NOTE | 2019-10-21 18:10 | PDOC ---
History of Present Illness - General Chief Complaint: Back Pain Stated Complaint: BACK PAIN Time Seen by Provider: 10/21/19 17:32 History Source: Patient Exam Limitations: No Limitations - History of Present Illness Initial Comments: 10/21/19 18:06 49-year-old female history of brain cancer status post resection in 2000 reports normal imaging of the brain 1 year ago, hypertension, arthritis presents complaining of atraumatic constant low back pain x2 weeks. Denies numbness and tingling to lower extremities, fever, chills, weakness, urinary incontinence, bowel incontinence, abdominal pain, shortness of breath, weakness, urinary complaints or any other symptoms. Patient has been intermittently taking Flexeril daily, alternating between acetaminophen and ibuprofen which has slightly helped her symptoms. Last dose of medications was approximately 8 hours ago. ROS: as above PE: GENERAL: well-appearing, obese HEAD: NCAT EYES: Pupils equal, round and reactive to light, sclera anicteric, conjunctiva clear ENT: pharynx: no erythema, no exudate, uvula midline NECK: supple CHEST: nontender RESP: clear, no w/r/r CARDIO: rrr, no m/g/r ABD: +BS, soft, nontender, non distended BACK: Paraspinal tenderness to palpation across lumbar, no midline spinal ttp, no CVAT EXTREMITIES: Normal range of motion, no edema NEUROLOGICAL: Normal speech, walking slowly due to pain SKIN: Warm, Dry Is this a multiple visit Asthma Patient?: No Past History - Medical History Allergies/Adverse Reactions: Allergies Allergy/AdvReac Type Severity Reaction Status Date / Time banana Allergy Verified 12/26/18 09:40 phenytoin sodium Allergy Swelling Verified 12/26/18 09:40 [From Dilantin] phenytoin sodium extended Allergy Swelling Verified 12/26/18 09:40 [From Dilantin] Home Medications: Ambulatory Orders levETIRAcetam [Keppra -] 1,500 mg PO BID 09/23/11 Amlodipine Besylate [Norvasc -] 5 mg PO DAILY 04/10/17 Losartan/Hydrochlorothiazide [Losartan-Hctz 50-12.5 mg Tab] 1 each PO DAILY 05/12/18 Omeprazole 40 mg PO DAILY 05/12/18 Nitrofurantoin Monohyd/M-Cryst [Macrobid -] 100 mg PO BID #9 capsule 08/29/18 Oxcarbazepine [Trileptal -] 150 mg PO DAILY 08/29/18 Topiramate [Topamax] 100 mg PO DAILY 08/29/18 Naproxen 500 mg PO BID #20 tablet 12/26/18 Cancer: (BRAIN TUMOR) COPD: No GI Disorders: Yes (gerd) HTN: Yes Seizures: Yes Other medical history: arthritis - Surgical History Neurologic Surgery: Yes (meningioma resection 2000) - Immunization History Immunization Up to Date: Yes - Psycho-Social/Smoking History Smoking Status: No Smoking History: Never smoked Have you smoked in the past 12 months: No Number of Cigarettes Smoked Daily: 1 'Breaking Loose' booklet given: 06/25/18 - Substance Abuse Hx (Audit-C & DAST Scrn) How often the patient has a drink containing alcohol: Never Score: In Men: 4 or > Positive; In Women: 3 or > Positive: 0 Screen Result (Pos requires Nsg. Audit-10AR): Negative *Physical Exam - Vital Signs Last Vital Signs Temp Pulse Resp BP Pulse Ox 98.3 F 118 H 18 126/82 98 10/21/19 17:32 10/21/19 17:32 10/21/19 17:32 10/21/19 17:32 10/21/19 17:32 Medical Decision Making - Medical Decision Making 10/21/19 18:10 49-year-old female history of brain cancer status post resection in 2000 reports normal imaging of the brain 1 year ago, hypertension, arthritis presents complaining of atraumatic constant low back pain x2 weeks. Denies numbness and tingling to lower extremities, fever, chills, weakness, urinary incontinence, bowel incontinence, abdominal pain, shortness of breath, weakness, urinary complaints or any other symptoms. Patient has been intermittently taking Flexeril daily, alternating between acetaminophen and ibuprofen which has slightly helped her symptoms. Last dose of medications was approximately 8 hours ago. 10/21/19 18:56 Lumbar sacral x-ray: No acute findings wet read by me Patient is ambulatory Stable for discharge Advised to follow-up with PMD within 1 week Understands return precautions Discharge - Discharge Information Problems reviewed: Yes Clinical Impression/Diagnosis: Back pain Qualifiers: Back pain location: low back pain Chronicity: acute Back pain laterality: midline Sciatica presence: without sciatica Qualified Code(s): M54.5 - Low back pain Condition: Stable Disposition: HOME - Admission No - Follow up/Referral Referrals: Chris Espinoza MD [Primary Care Provider] - - Patient Discharge Instructions Additional Instructions: Alternate between acetaminophen 975 mg and ibuprofen 600 mg every 6 hours as needed for pain Take Flexeril 10 mg 1 tablet at night Follow-up with your doctor this week If you develop fever, chills, worsening pain, inability to walk, urinary or bowel incontinence or any concerning symptoms return to ED - Post Discharge Activity
[2019-10-21] MEDS ORDERED: KETOROLAC TROMETHAMINE 30 MG/1 ML VIAL ONE (18:12)
[2019-10-21] MEDS ORDERED: diazePAM 5 MG TABLET ONE (18:12)
== END 2019-10-21 18:59 | disposition home or self-care (01) ==
LOC: JERFT 17:26
PROC: 3E0233Z Introduction of Anti-inflammatory into Muscle, Percutaneous Approach (ICD-10-PCS; principal; 2019-10-21)
DX: M54.5 Low back pain (principal)
CPT/HCPCS: 72100-TC-FY; 99284-25

== ENCOUNTER 2019-11-29 16:54 | Emergency (ER) | payer OTHER ==
[2019-11-29 17:01] VITALS: TEMP 98.6; BMI 39.9
[2019-11-29] MEDS ORDERED: LACTATED RINGERS SOLUTION 1000 ML INFUS.BAG IV ONE (18:05)
--- NOTE | 2019-11-29 18:51 | PDOC ---
Documentation entered by Alicia Ross SCRIBE, acting as scribe for Radha Hallman DO. Radha Hallman DO: This documentation has been prepared by the Cody lujan Xhesika, SCRIBE, under my direction and personally reviewed by me in its entirety. I confirm that the documentation accurately reflects all work, treatment, procedures, and medical decision making performed by me. Attending Attestation - Resident Resident Name: Quang Herzog - ED Attending Attestation I have performed the following: I have examined & evaluated the patient, The case was reviewed & discussed with the resident, I agree w/resident's findings & plan, Exceptions are as noted - HPI HPI: 11/29/19 17:30 The patient is a 49-year-old female with a past medical history significant for HTN, seizures s/p resection of meningioma ([address] Steinberg) presents to the emergency department with 1 month of intermittent hand shaking, when she goes to sleep. Pt states when she endorses these episodes, her hands clench up, feels ex hausted afterwards and sleeps for 2 hours. Pt denies LOC. Pt states this is not her typical seizure activity. Pt is compliant with keppra. Pt denies urinary/ bowel incontinence. Pt states she saw Dr. Espinoza 2 weeks ago, was scheduled for a outpatient MRI, was not able to tolerate it and had to reschedule for a second one. Allergies: phenytoin sodium PCP: Dr. Kamila Espinoza. - Physicial Exam PE: 11/29/19 17:39 GENERAL: Awake, alert, and fully oriented, in no acute distress HEAD: No signs of trauma EYES: PERRLA, EOMI, sclera anicteric, conjunctiva clear ENT: Auricles normal inspection, hearing grossly normal, nares patent, oropharynx clear without exudates. Moist mucosa NECK: Normal ROM, supple, no lymphadenopathy, JVD, or masses LUNGS: Breath sounds equal, clear to auscultation bilaterally. No wheezes, and no crackles HEART: +tachy, no murmurs, rubs or gallops ABDOMEN: Soft, nontender, normoactive bowel sounds. No guarding, no rebound. No masses EXTREMITIES: Normal range of motion, no edema. No clubbing or cyanosis. No cords, erythema, or tenderness NEUROLOGICAL: Cranial nerves II through XII grossly intact. SKIN: Warm, Dry, normal turgor, no rashes lesions noted. - Medical Decision Making 11/29/19 18:46 a/p: 49yo female with pmhx of brain ca s/p radiation/resection in the past and epilepsy on keppra with episodes of hand clenching/shaking without loc or ams -concern for partial seizures -new onset x 1 month -no change in seizure med -has not seen neurology in years -was scheduled for outpt MRI which she was unable to tolerate -will send labs, as pt arrives tachy -pt refusing MRI, will send for CT head -will hydrate, monitor and reassess 11/29/19 19:58 pt with mare pt with wbc 14 11/29/19 20:42 no change in head ct from may 2018 11/29/19 21:34 pt with uti cxr clear cr 1.5 at baseline now 1.6, not mare will treat with abx will need outpt follow up with neurology and pmd will need outpt mri stable for dc to home Discharge - Discharge Information Problems reviewed: Yes Clinical Impression/Diagnosis: UTI (urinary tract infection), Tremor Condition: Stable Disposition: HOME - Admission No - Follow up/Referral Referrals: Chris Espinoza MD [Primary Care Provider] - Shaheed Cavazos MD [Staff Physician] - Mike Reyes MD [Staff Physician] - Jose Luis Wick MD [Staff Physician] - - Patient Discharge Instructions Patient Printed Discharge Instructions: DI for Urinary Tract Infection (UTI) - Post Discharge Activity
[2019-11-29 19:06] LABS: HEMATOCRIT 38.9 % (32.4-45.2); HEMOGLOBIN 12.3 GM/dL (10.7-15.3); MCHC 31.5 g/dl (32.0-36.0); MEAN CELL VOLUME 88.8 fl (80-96); MEAN PLT VOLUME 6.9 fl (7.5-11.1); PLATELET COUNT 460 K/MM3 (134-434); RBC 4.39 M/mm3 (3.60-5.2); RDW 13.9 % (11.6-15.6); WHITE BLOOD COUNT 14.7 K/mm3 (4.0-10.0)
[2019-11-29 19:52] LABS: ALBUMIN 3.6 g/dl (3.4-5.0); BILIRUBIN,TOTAL 0.3 mg/dL (0.2-1); BLOOD UREA NITROGEN 19.5 mg/dL (7-18); CREATININE 1.6 mg/dL (0.55-1.3); POTASSIUM 3.4 mmol/L (3.5-5.1); TOT PROT 9.2 g/dl (6.4-8.2)
--- NOTE | 2019-11-29 20:46 | PDOC ---
History of Present Illness - General Chief Complaint: Weakness Stated Complaint: WEAKNESS- UNSPECIFIED Time Seen by Provider: 11/29/19 17:10 - History of Present Illness Initial Comments: 11/29/19 20:45 49yo F w/ h/o brain CA tx w/ ctx + rads + surgery and seizure disorder presents w/ one month frequent 10-20second long episodes of rapid hand shaking and hyperventilation. Expresses that she is oriented during these episodes, as she hears and can respond to her son who reminds her to breathe deeply. She states these episodes follow severe emotional experiences/moments. She also states these are not similar to her old seizures. She denies loss of control of bowel/bladder during these episodes, and she does not endorse lightheadedness or nausea/vomitus. She wants to make sure these episodes are not a sign of cancer recurrence. She denies recent illness but endorses some intermittent mild RLQ discomfort. 11/29/19 21:14 12/02/19 10:13 12/02/19 10:15 Past History - Medical History Allergies/Adverse Reactions: Allergies Allergy/AdvReac Type Severity Reaction Status Date / Time banana Allergy Verified 11/29/19 16:56 phenytoin sodium Allergy Swelling Verified 11/29/19 16:56 [From Dilantin] phenytoin sodium extended Allergy Swelling Verified 11/29/19 16:56 [From Dilantin] Home Medications: Ambulatory Orders levETIRAcetam [Keppra -] 1,500 mg PO BID 09/23/11 Amlodipine Besylate [Norvasc -] 5 mg PO DAILY 04/10/17 Omeprazole 40 mg PO DAILY 05/12/18 Oxcarbazepine [Trileptal -] 150 mg PO DAILY 08/29/18 Topiramate [Topamax] 100 mg PO DAILY 08/29/18 Cephalexin [Keflex] 500 mg PO BID 7 Days #14 capsule 11/29/19 Cyclobenzaprine HCl 10 mg PO TID 11/29/19 Hydrochlorothiazide 12.5 mg PO DAILY 11/29/19 Losartan Potassium 50 mg PO DAILY 11/29/19 Cancer: (BRAIN TUMOR) COPD: No GI Disorders: Yes (gerd) HTN: Yes Seizures: Yes - Surgical History Neurologic Surgery: Yes (meningioma resection 2000) - Reproductive History Is Patient Now?: No - Immunization History Immunization Up to Date: Yes - Psycho-Social/Smoking History Smoking Status: No Smoking History: Never smoked Have you smoked in the past 12 months: No Number of Cigarettes Smoked Daily: 1 'Breaking Loose' booklet given: 06/25/18 - Substance Abuse Hx (Audit-C & DAST Scrn) How often the patient has a drink containing alcohol: Never Score: In Men: 4 or > Positive; In Women: 3 or > Positive: 0 Screen Result (Pos requires Nsg. Audit-10AR): Negative Review of Systems - Review of Systems Able to Perform ROS?: Yes Is the patient limited Yoruba proficient: No Constitutional: No: Chills, Diaphoresis, Fever, Night Sweats, Unintentional Wgt. Loss HEENTM: No: Blurred Vision, Recent change in vision, Double Vision, Nose Congestion, Tinnitus, Nose Bleeding, Hearing Loss Respiratory: No: Cough, Shortness of Breath Cardiac (ROS): No: Chest Pain, Edema, Irregular Heart Rate, Lightheadedness, Palpitations, Syncope ABD/GI: No: Constipated, Diarrhea, Nausea, Vomiting : No: Burning, Dysuria, Hematuria Musculoskeletal: Yes: Joint Swelling. No: Back Pain Integumentary: No: Dryness, Erythema, Rash Neurological: Yes: Weakness. No: Headache, Numbness, Seizure *Physical Exam - Vital Signs Last Vital Signs Temp Pulse Resp BP Pulse Ox 98.6 F 128 H 18 116/76 96 11/29/19 16:56 11/29/19 16:56 11/29/19 16:56 11/29/19 16:56 11/29/19 16:56 - Physical Exam General Appearance: Yes: Nourished, Appropriately Dressed, Disheveled. No: Apparent Distress HEENT: positive: Normal ENT Inspection, Normal Voice. negative: Rhinorrhea Neck: positive: Trachea midline, Supple. negative: Tender Respiratory/Chest: positive: Lungs Clear, Normal Breath Sounds. negative: Chest Tender, Respiratory Distress Cardiovascular: positive: Regular Rhythm, S1, S2, Tachycardia Gastrointestinal/Abdominal: positive: Normal Bowel Sounds, Tender (mild ttp, RLQ), Soft Musculoskeletal: positive: Normal Inspection. negative: CVA Tenderness Extremity: positive: Normal Capillary Refill Integumentary: positive: Normal Color, Dry, Warm Neurologic: positive: Fully Oriented, Alert, Normal Response ED Treatment Course - LABORATORY CBC & Chemistry Diagram: 11/29/19 18:40 11/29/19 18:40 - ADDITIONAL ORDERS Additional order review: Laboratory Results 11/29/19 18:40 Sodium 140 Potassium 3.4 L Chloride 104 Carbon Dioxide 29 Anion Gap 6 L BUN 19.5 H Creatinine 1.6 H Est GFR (CKD-EPI)AfAm 42.80 Est GFR (CKD-EPI)NonAf 36.92 Random Glucose 98 Calcium 9.0 Total Bilirubin 0.3 AST 22 ALT 30 Alkaline Phosphatase 122 H Total Protein 9.2 H Albumin 3.6 TSH 2.18 11/29/19 18:40 RBC 4.39 MCV 88.8 MCHC 31.5 L RDW 13.9 MPV 6.9 L - Medications Given in the ED: ED Medications Discontinued Medications Generic Name Dose Route Start Last Admin Trade Name Freq PRN Reason Stop Dose Admin Lactated Ringer's 1,000 ml 11/29/19 18:05 11/29/19 18:41 Lactated Ringers Solution IV 11/29/19 18:06 1,000 ml ONCE ONE Administration Medical Decision Making - Medical Decision Making 12/02/19 10:14 1. hand-shaking episodes - CT head because refused MRI. Basic labs. Basic labs wnl. CT negative -> d/c w/ close f/u 2. RLQ discomfort - UA -> positive -> ABX 12/02/19 10:16 Discharge - Discharge Information Problems reviewed: Yes Clinical Impression/Diagnosis: UTI (urinary tract infection), Tremor Condition: Good Disposition: HOME - Admission No - Additional Discharge Information Prescriptions: Cephalexin [Keflex] 500 mg PO BID 7 Days #14 capsule - Follow up/Referral Referrals: Mike Reyes MD [Staff Physician] - Shaheed Cavazos MD [Staff Physician] - Jose Luis Wick MD [Staff Physician] - Chris Espinoza MD [Primary Care Provider] - - Patient Discharge Instructions Patient Printed Discharge Instructions: DI for Urinary Tract Infection (UTI) Additional Instructions: You came to the ED with concern over the shaking episodes you have been experiencing over the last month. We scanned your head, tested your blood, took an XRay, and tested your urine. We found a urinary tract infection. We sent a prescription to [facility] pharmacy for you. These are antibiotics. Take 1 pill twice per day, with food, for 7 days. Finish the whole bottle. We also gave you new doctors to follow up with. Please come back if you erxpericene any severe symptoms. - Post Discharge Activity
[2019-11-29] MEDS ORDERED: ACETAMINOPHEN 325 MG TABLET (FP) ONE (21:03)
[2019-11-29] MEDS ORDERED: LIDOCAINE 5% TOPICAL PATCH ONE (21:03)
[2019-11-29 21:21] LABS: EPI CELLS >36 /uL (0-25.1); HYALINE CASTS 14 /uL (0-3.1); URINE APPEARANCE TURBID; URINE BACTERIA 4968 /uL (0-1359); URINE BILIRUBIN NEGATIVE (NEGATIVE); URINE COLOR YELLOW; URINE GLUCOSE (UA) NEGATIVE (NEGATIVE); URINE KETONE TRACE (NEGATIVE); URINE LEUK ESTERASE 1+ (NEGATIVE); URINE NITRITE NEGATIVE (NEGATIVE); URINE PROTEIN 1+ (NEGATIVE); URINE WBC 931 /uL (0-25.8)
[2019-11-29 21:33] LABS: URINE RBC 67.9 /uL (0-23.9)
[2019-11-29] MEDS ORDERED: CEFTRIAXONE 1,000 MG in DEXTROSE 5%-WATER - 50 ML IVPB ONE (21:36)
[2019-11-29] MEDS ORDERED: cefTRIAXone SODIUM 1 GM VIAL ONE (21:44)
[2019-11-29 21:57] VITALS: BP 124/80; PULSE 105
== END 2019-11-29 22:01 | disposition home or self-care (01) ==
LOC: JER 16:54
DX: N39.0 Urinary tract infection, site not specified (principal)
CPT/HCPCS: 36415; 70450-TC; 71046-TC-FY; 80053; 81003; 84443; 84703; 85027; 87086; 87186; 99285-25

== ENCOUNTER 2020-02-08 15:45 | Emergency (ER) | payer OTHER ==
[2020-02-08 16:26] VITALS: BMI 38.2
[2020-02-08 17:34] LABS: BASO % 0.6 % (0-2.0); HEMATOCRIT 38.8 % (32.4-45.2); HEMOGLOBIN 12.7 GM/dL (10.7-15.3); LYMPH % 26.9 % (8-40); MCH 29.3 pg (25.7-33.7); MCHC 32.7 g/dl (32.0-36.0); MEAN CELL VOLUME 89.4 fl (80-96); MONO % 6.4 % (3.8-10.2); NEUT % 64.1 % (42.8-82.8); PLATELET COUNT 486 K/MM3 (134-434); RBC 4.33 M/mm3 (3.60-5.2); RDW 14.5 % (11.6-15.6); WHITE BLOOD COUNT 14.1 K/mm3 (4.0-10.0)
[2020-02-08 17:45] LABS: INR 0.97 (0.83-1.09); PROTHROMBIN TIME (PATIENT) 11.9 SEC (9.7-13.0)
[2020-02-08 17:48] LABS: ACTIVATED PTT 29.3 SECONDS (25.2-36.5)
[2020-02-08 17:52] LABS: CHLORIDE 102 mmol/L (98-107); POTASSIUM 3.2 mmol/L (3.5-5.1); SODIUM 139 mmol/L (136-145)
[2020-02-08 17:54] LABS: CALCIUM 9.3 mg/dL (8.5-10.1)
[2020-02-08 17:55] LABS: ALBUMIN 3.9 g/dl (3.4-5.0); ANION GAP 9 MMOL/L (8-16); BLOOD UREA NITROGEN 10.3 mg/dL (7-18); CO2 28 mmol/L (21-32); GLUCOSE,RANDOM 133 mg/dL (74-106)
[2020-02-08 17:58] LABS: CREATININE 1.4 mg/dL (0.55-1.3); SGOT/AST 26 U/L (15-37); SGPT/ALT 38 U/L (13-61)
[2020-02-08 18:00] LABS: BILIRUBIN,TOTAL 0.3 mg/dL (0.2-1); TOT PROT 9.2 g/dl (6.4-8.2)
[2020-02-08 18:01] LABS: ALK PHOS 109 U/L (45-117)
[2020-02-08] MEDS ORDERED: LACTATED RINGERS SOLUTION 1,000 ML/1,000 ML INFUS.BAG IV STA (18:02)
[2020-02-08] MEDS ORDERED: LIDOCAINE 5% TOPICAL PATCH TP ONE (18:50)
[2020-02-08] MEDS ORDERED: ACETAMINOPHEN 325 MG TABLET (FP) PO ONE (18:50)
[2020-02-08 18:59] LABS: EPI CELLS >36 /uL (0-25.1); HYALINE CASTS 22 /uL (0-3.1); URINE APPEARANCE TURBID; URINE BACTERIA 3992 /uL (0-1359); URINE BILIRUBIN NEGATIVE (NEGATIVE); URINE COLOR YELLOW; URINE GLUCOSE (UA) NEGATIVE (NEGATIVE); URINE KETONE NEGATIVE (NEGATIVE); URINE LEUK ESTERASE 2+ (NEGATIVE); URINE NITRITE NEGATIVE (NEGATIVE); URINE PROTEIN NEGATIVE (NEGATIVE); URINE WBC 381 /uL (0-25.8)
[2020-02-08] MEDS ORDERED: POTASSIUM CHLORIDE TABS 20 MEQ TABLET.ER (FP) PO ONE ×3 (19:26→20:00)
[2020-02-08] MEDS ORDERED: SULFAMETHOXAZOLE/TRIMETHOPRIM 800MG/160MG D.S. TABLET PO ONE (19:45)
[2020-02-08] MEDS ORDERED: ACETAMINOPHEN 325 MG TABLET (FP) ONE (20:00)
[2020-02-08] MEDS ORDERED: SULFAMETHOXAZOLE/TRIMETHOPRIM 800MG/160MG D.S. TABLET ONE (20:01)
[2020-02-08] MEDS ORDERED: LIDOCAINE 5% TOPICAL PATCH ONE (20:01)
[2020-02-08 20:40] LABS: URINE RBC 27.8 /uL (0-23.9)
[2020-02-08] MEDS ORDERED: LIDOCAINE PATCH REMOVAL MC SCH (22:00)
[2020-02-08] MEDS ORDERED: amLODIPine BESYLATE 10 MG TABLET (FP) PO ONE (23:17)
[2020-02-08] MEDS ORDERED: amLODIPine BESYLATE 5 MG TABLET (FP) PO ONE (23:22)
[2020-02-08 23:23] VITALS: BP 137/86; PULSE 102; TEMP 98.3
[2020-02-08] MEDS ORDERED: amLODIPine BESYLATE 5 MG TABLET (FP) ONE (23:24)
== END 2020-02-08 23:31 | disposition home or self-care (01) ==
LOC: JER 15:45
PROC: 3E0337Z Introduction of Electrolytic and Water Balance Substance into Peripheral Vein, Percutaneous Approach (ICD-10-PCS; principal; 2020-02-08)
DX: R00.2 Palpitations (principal); R91.8 Other nonspecific abnormal finding of lung field; M54.5 Low back pain; M79.10 Myalgia, unspecified site
CPT/HCPCS: 36415; 71046-TC-FY; 71275-TC; 72131-TC; 80053; 81003; 82550; 84484; 85025; 85610; 85730; 93005; 93010; 99285-25; Q9967

== ENCOUNTER 2020-08-14 01:02 | Emergency (ER) | payer OTHER ==
[2020-08-14 01:12] VITALS: BP 125/86; PULSE 92; TEMP 98.9; BMI 39.1
[2020-08-14] MEDS ORDERED: IBUPROFEN 600 MG TABLET (FP) PO ONE ×2 (01:30→01:41)
[2020-08-14] MEDS ORDERED: LIDOCAINE 5% TOPICAL PATCH TP ONE (01:30)
[2020-08-14] MEDS ORDERED: CYCLOBENZAPRINE HCL 5 MG TABLET PO ONE (01:30)
[2020-08-14] MEDS ORDERED: LIDOCAINE 5% TOPICAL PATCH ONE (01:42)
[2020-08-14] MEDS ORDERED: LIDOCAINE PATCH REMOVAL MC SCH (22:00)
== END 2020-08-14 02:07 | disposition home or self-care (01) ==
LOC: JER 01:02
DX: M54.9 Dorsalgia, unspecified (principal)
CPT/HCPCS: 99284-25

== ENCOUNTER 2020-11-24 17:17 | Emergency (ER) | payer OTHER ==
[2020-11-24 17:56] VITALS: BMI 34.6
[2020-11-24 20:00] LABS: BASO % 0.4 % (0-2.0); EOS % 1.6 % (0-4.5); HEMATOCRIT 37.4 % (32.4-45.2); HEMOGLOBIN 12.3 GM/dL (10.7-15.3); LYMPH % 23.8 % (8-40); MCH 28.8 pg (25.7-33.7); MEAN CELL VOLUME 87.3 fl (80-96); MEAN PLT VOLUME 6.5 fl (7.5-11.1); MONO % 5.9 % (3.8-10.2); NEUT % 68.3 % (42.8-82.8); PLATELET COUNT 498 10^3/uL (134-434); RBC 4.28 M/mm3 (3.60-5.2); RDW 14.3 % (11.6-15.6); WHITE BLOOD COUNT 15.5 K/mm3 (4.0-10.0)
[2020-11-24 20:18] VITALS: BP 104/74; PULSE 107; TEMP 98.3
[2020-11-24 20:24] LABS: ALBUMIN 3.8 g/dl (3.4-5.0); BLOOD UREA NITROGEN 12.7 mg/dL (7-18)
[2020-11-24 20:27] LABS: CREATININE 1.4 mg/dL (0.55-1.3)
[2020-11-24 20:29] LABS: BILIRUBIN,TOTAL 0.5 mg/dL (0.2-1); TOT PROT 9.4 g/dl (6.4-8.2)
[2020-11-24] MEDS ORDERED: POTASSIUM CHLORIDE TABS 20 MEQ TABLET.ER (FP) PO ONE ×2 (20:35→20:52)
[2020-11-24] MEDS ORDERED: levETIRAcetam 500 MG TABLET (FP) PO ONE ×2 (20:36→20:52)
== END 2020-11-24 22:10 | disposition home or self-care (01) ==
LOC: JER 17:17
DX: R56.9 Unspecified convulsions (principal); E87.6 Hypokalemia; G83.84 Todd's paralysis (postepileptic)
CPT/HCPCS: 36415; 80053; 80177; 85025; 93005; 93010; 99284-25

== ENCOUNTER 2021-08-10 13:00 | Emergency (ER) | payer OTHER ==
[2021-08-10 13:23] VITALS: BP 109/73; PULSE 114; TEMP 99; BMI 44.1
== END 2021-08-10 16:55 | disposition home or self-care (01) ==
LOC: JERFT 13:00 → JER 13:00 → JERFT 16:55
DX: M54.05 Panniculitis affecting regions of neck and back, thoracolumbar region (principal)
CPT/HCPCS: 72100-TC-FY; 99283-25

== ENCOUNTER 2021-09-14 09:37 | Inpatient (IN) | payer OTHER ==
[2021-09-14] MEDS: SODIUM CHLORIDE 1,000 ML IV SCH (10:45)
[2021-09-14 10:47] LABS: BASO % 0.6 % (0-2.0); EOS % 2.5 % (0-4.5); HEMATOCRIT 37.8 % (32.4-45.2); HEMOGLOBIN 12.7 GM/dL (10.7-15.3); MCH 29.4 pg (25.7-33.7); MCHC 33.5 g/dl (32.0-36.0); MEAN PLT VOLUME 6.8 fl (7.5-11.1); MONO % 6.8 % (3.8-10.2); NEUT % 61.1 % (42.8-82.8); PLATELET COUNT 465 10^3/uL (134-434); RDW 14.2 % (11.6-15.6); WHITE BLOOD COUNT 12.6 K/mm3 (4.0-10.0)
[2021-09-14 11:04] LABS: ACTIVATED PTT 29.9 SECONDS (25.2-36.5)
[2021-09-14 11:06] LABS: INR 1.03 (0.83-1.09); PROTHROMBIN TIME (PATIENT) 11.8 SEC (9.7-13.0)
[2021-09-14 11:20] LABS: ALBUMIN 3.7 g/dl (3.4-5.0)
[2021-09-14 11:22] LABS: BLOOD UREA NITROGEN 17.2 mg/dL (7-18)
[2021-09-14 11:24] LABS: CREATININE 1.4 mg/dL (0.55-1.3)
[2021-09-14 11:25] LABS: TOT PROT 8.7 g/dl (6.4-8.2)
[2021-09-14 11:26] LABS: URINE APPEARANCE CLEAR; URINE BILIRUBIN NEGATIVE (NEGATIVE); URINE COLOR YELLOW; URINE GLUCOSE (UA) NEGATIVE (NEGATIVE); URINE KETONE NEGATIVE (NEGATIVE)
[2021-09-14 11:27] LABS: BILIRUBIN,TOTAL 0.4 mg/dL (0.2-1); URINE LEUK ESTERASE NEGATIVE (NEGATIVE); URINE NITRITE NEGATIVE (NEGATIVE); URINE PROTEIN NEGATIVE (NEGATIVE); URINE UROBILINOGEN 0.2 mg/dL (0.2-1.0)
[2021-09-14] MEDS ORDERED: ACETAMINOPHEN 1000 MG/100 ML BAG IVPB ONE (13:00)
[2021-09-14] MEDS ORDERED: ACETAMINOPHEN INJECTION 100 ML IVPB ONE (13:15)
[2021-09-14] MEDS ORDERED: POTASSIUM CHLORIDE TABS 20 MEQ TABLET.ER (FP) PO ONE ×2 (13:16→13:18)
[2021-09-14] MEDS ORDERED: levETIRAcetam 500 MG TABLET (FP) PO ONE (21:50)
[2021-09-14] MEDS: levETIRAcetam 250 MG TABLET PO SCH (21:53)
[2021-09-14] MEDS ORDERED: IBUPROFEN 600 MG TABLET (FP) PO PRN (22:00)
[2021-09-15] MEDS ORDERED: IBUPROFEN 600 MG TABLET (FP) PO ONE (00:29)
[2021-09-15 02:28] VITALS: BMI 37.8
[2021-09-15] MEDS: levETIRAcetam 250 MG TABLET PO SCH ×2 (09:31→21:29)
[2021-09-15] MEDS: amLODIPine BESYLATE 5 MG TABLET (FP) PO SCH (09:34)
[2021-09-15] MEDS: ASPIRIN COATED 81 MG TABLET.EC PO SCH (09:34)
[2021-09-15] MEDS: LOSARTAN POTASSIUM 50 MG TABLET PO SCH (09:34)
[2021-09-15] MEDS: PANTOPRAZOLE 40 MG TABLET PO SCH (09:34)
[2021-09-15] MEDS: SODIUM CHLORIDE 1,000 ML IV SCH (09:35)
[2021-09-15] MEDS ORDERED: LORazepam 1 MG TABLET PO ONE (12:00)
[2021-09-15 18:43] LABS: CALCIUM 9.2 mg/dL (8.5-10.1)
[2021-09-15 18:44] LABS: ALBUMIN 3.7 g/dl (3.4-5.0); BLOOD UREA NITROGEN 15.4 mg/dL (7-18)
[2021-09-15 18:47] LABS: CREATININE 1.3 mg/dL (0.55-1.3)
[2021-09-15 18:48] LABS: TOT PROT 8.6 g/dl (6.4-8.2)
[2021-09-15 18:50] LABS: BILIRUBIN,TOTAL 1.1 mg/dL (0.2-1)
[2021-09-15] MEDS ORDERED: POTASSIUM CHLORIDE TABS 20 MEQ TABLET.ER (FP) PO ONE (21:15)
[2021-09-15] MEDS ORDERED: CYCLOBENZAPRINE HCL 10 MG TABLET (FP) PO ONE (21:15)
[2021-09-15] MEDS: ATORVASTATIN CA 80 MG TABLET (FP) PO SCH (21:29)
[2021-09-15] MEDS: HEPARIN NA (PORCINE) 5,000 UNITS/ML 1ML VIAL SQ SCH (21:30)
[2021-09-15] MEDS: ACETAMINOPHEN 325 MG TABLET (FP) PO PRN (21:30)
[2021-09-16 06:56] LABS: BASO % 0.7 % (0-2.0); EOS % 5.4 % (0-4.5); HEMATOCRIT 34.2 % (32.4-45.2); HEMOGLOBIN 11.5 GM/dL (10.7-15.3); LYMPH % 32.6 % (8-40); MCH 29.6 pg (25.7-33.7); MCHC 33.6 g/dl (32.0-36.0); MEAN CELL VOLUME 88.1 fl (80-96); MEAN PLT VOLUME 7.1 fl (7.5-11.1); MONO % 6.9 % (3.8-10.2); NEUT % 54.4 % (42.8-82.8); PLATELET COUNT 407 10^3/uL (134-434); RBC 3.88 M/mm3 (3.60-5.2); RDW 13.8 % (11.6-15.6); WHITE BLOOD COUNT 9.8 K/mm3 (4.0-10.0)
[2021-09-16 07:17] LABS: ALBUMIN 3.3 g/dl (3.4-5.0); BLOOD UREA NITROGEN 14.7 mg/dL (7-18); CALCIUM 8.9 mg/dL (8.5-10.1)
[2021-09-16 07:21] LABS: CREATININE 1.1 mg/dL (0.55-1.3)
[2021-09-16 07:22] LABS: BILIRUBIN,TOTAL 0.4 mg/dL (0.2-1); TOT PROT 7.6 g/dl (6.4-8.2)
[2021-09-16] MEDS: LOSARTAN POTASSIUM 50 MG TABLET PO SCH (09:17)
[2021-09-16] MEDS: amLODIPine BESYLATE 5 MG TABLET (FP) PO SCH (09:17)
[2021-09-16] MEDS: ASPIRIN COATED 81 MG TABLET.EC PO SCH (09:17)
[2021-09-16] MEDS: levETIRAcetam 250 MG TABLET PO SCH (09:17)
[2021-09-16] MEDS: HEPARIN NA (PORCINE) 5,000 UNITS/ML 1ML VIAL SQ SCH ×2 (09:18→22:09)
[2021-09-16] MEDS: PANTOPRAZOLE 40 MG TABLET PO SCH (09:18)
[2021-09-16] MEDS ORDERED: POTASSIUM CHLORIDE TABS 20 MEQ TABLET.ER (FP) PO ONE (11:08)
[2021-09-16] MEDS ORDERED: CYCLOBENZAPRINE HCL 10 MG TABLET (FP) PO ONE (21:15)
[2021-09-16] MEDS ORDERED: BENZOCAINE/MENTHOL 1 EACH LOZENGE MM PRN (21:15)
[2021-09-16] MEDS: ATORVASTATIN CA 80 MG TABLET (FP) PO SCH (22:09)
[2021-09-17 07:46] LABS: ALBUMIN 3.2 g/dl (3.4-5.0); CALCIUM 8.7 mg/dL (8.5-10.1)
[2021-09-17 07:47] LABS: BLOOD UREA NITROGEN 10.4 mg/dL (7-18)
[2021-09-17 07:50] LABS: CREATININE 1.1 mg/dL (0.55-1.3)
[2021-09-17 07:52] LABS: BILIRUBIN,TOTAL 0.4 mg/dL (0.2-1); TOT PROT 7.7 g/dl (6.4-8.2)
[2021-09-17] MEDS: HEPARIN NA (PORCINE) 5,000 UNITS/ML 1ML VIAL SQ SCH ×2 (09:39→21:09)
[2021-09-17] MEDS: PANTOPRAZOLE 40 MG TABLET PO SCH (09:39)
[2021-09-17] MEDS: LOSARTAN POTASSIUM 50 MG TABLET PO SCH (09:39)
[2021-09-17] MEDS: amLODIPine BESYLATE 5 MG TABLET (FP) PO SCH (09:39)
[2021-09-17] MEDS: ASPIRIN COATED 81 MG TABLET.EC PO SCH (09:39)
[2021-09-17] MEDS ORDERED: POTASSIUM CHLORIDE TABS 20 MEQ TABLET.ER (FP) PO ONE (11:30)
[2021-09-17] MEDS: ACETAMINOPHEN 325 MG TABLET (FP) PO PRN (20:51)
[2021-09-17] MEDS: ATORVASTATIN CA 80 MG TABLET (FP) PO SCH (21:09)
[2021-09-18] MEDS: HEPARIN NA (PORCINE) 5,000 UNITS/ML 1ML VIAL SQ SCH (09:06)
[2021-09-18] MEDS: ASPIRIN COATED 81 MG TABLET.EC PO SCH (09:06)
[2021-09-18] MEDS: LOSARTAN POTASSIUM 50 MG TABLET PO SCH (09:06)
[2021-09-18] MEDS: PANTOPRAZOLE 40 MG TABLET PO SCH (09:06)
[2021-09-18] MEDS: amLODIPine BESYLATE 5 MG TABLET (FP) PO SCH (09:07)
[2021-09-18 12:28] VITALS: BP 132/86; PULSE 89; TEMP 97.7
== END 2021-09-18 13:37 | disposition home or self-care (01) | DRG 53 ==
LOC: JER 09:37 → JERBED 14:05 → J4S 09-15 01:16
PROVIDERS: ADMIT Internal Medicine; ATTEND Internal Medicine
DX: G40.909 Epilepsy, unspecified, not intractable, without status epilepticus (principal); K21.9 Gastro-esophageal reflux disease without esophagitis; G93.89 Other specified disorders of brain; N17.9 Acute kidney failure, unspecified; D32.0 Benign neoplasm of cerebral meninges; M54.9 Dorsalgia, unspecified; E78.5 Hyperlipidemia, unspecified; G89.29 Other chronic pain; G81.94 Hemiplegia, unspecified affecting left nondominant side; E66.9 Obesity, unspecified; Z68.37 Body mass index [BMI] 37.0-37.9, adult; R73.03 Prediabetes; D72.829 Elevated white blood cell count, unspecified; E87.6 Hypokalemia; R09.02 Hypoxemia; R91.8 Other nonspecific abnormal finding of lung field; E04.2 Nontoxic multinodular goiter; I12.9 Hypertensive chronic kidney disease with stage 1 through stage 4 chronic kidney disease, or unspecified chronic kidney disease; N18.9 Chronic kidney disease, unspecified
CPT/HCPCS: 36415; 70450-TC; 70496-TC; 70498-TC; 70551-TC; 71045-TC-FY; 71250-TC; 76775-TC; 80053; 80061; 81003; 82550; 83036; 83735; 84484; 85025; 85610; 85730; 86850; 86900; 86901; 93005; 93010; 93306-TC; 93880-TC; 97116-GP; 97161-GP; 99285-25; C9803-CS; J1644; Q9967; U0003; U0005

== ENCOUNTER 2021-10-16 13:57 | Emergency (ER) | payer OTHER ==
[2021-10-16 14:12] VITALS: TEMP 98.2; BMI 37.5
[2021-10-16] MEDS ORDERED: MECLIZINE HCL 25 MG TABLET (FP) PO ONE (14:49)
[2021-10-16] MEDS ORDERED: ACETAMINOPHEN 325 MG TABLET (FP) PO ONE (14:49)
[2021-10-16] MEDS ORDERED: ACETAMINOPHEN 325 MG TABLET (FP) ONE (15:02)
[2021-10-16] MEDS ORDERED: MECLIZINE HCL 25 MG TABLET (FP) ONE (15:02)
[2021-10-16 16:12] LABS: BASO % 0.2 % (0-2.0); EOS % 2.1 % (0-4.5); HEMATOCRIT 39.3 % (32.4-45.2); HEMOGLOBIN 12.7 GM/dL (10.7-15.3); MCH 28.8 pg (25.7-33.7); MCHC 32.3 g/dl (32.0-36.0); MEAN CELL VOLUME 89.2 fl (80-96); MEAN PLT VOLUME 6.6 fl (7.5-11.1); MONO % 6.5 % (3.8-10.2); NEUT % 65.2 % (42.8-82.8); PLATELET COUNT 490 10^3/uL (134-434); RDW 13.9 % (11.6-15.6); WHITE BLOOD COUNT 15.4 K/mm3 (4.0-10.0)
[2021-10-16 16:49] LABS: BLOOD UREA NITROGEN 15.6 mg/dL (7-18); CALCIUM 9.3 mg/dL (8.5-10.1)
[2021-10-16 16:52] LABS: CREATININE 1.4 mg/dL (0.55-1.3)
[2021-10-16 16:54] LABS: BILIRUBIN,TOTAL 0.5 mg/dL (0.2-1); TOT PROT 9.3 g/dl (6.4-8.2)
[2021-10-16 17:59] LABS: EPI CELLS >36 /uL (0-25.1); HYALINE CASTS 4 /uL (0-3.1); URINE APPEARANCE CLOUDY; URINE BACTERIA 1610 /uL (0-1359); URINE BILIRUBIN NEGATIVE (NEGATIVE); URINE COLOR YELLOW; URINE GLUCOSE (UA) NEGATIVE (NEGATIVE); URINE KETONE TRACE (NEGATIVE); URINE LEUK ESTERASE 1+ (NEGATIVE); URINE NITRITE NEGATIVE (NEGATIVE); URINE PROTEIN NEGATIVE (NEGATIVE); URINE RBC 52 /uL (0-23.9); URINE UROBILINOGEN 0.2 mg/dL (0.2-1.0); URINE WBC 51 /uL (0-25.8)
[2021-10-16 18:45] VITALS: BP 110/76; PULSE 79; RESP 16
== END 2021-10-16 18:51 | disposition home or self-care (01) ==
LOC: JER 13:57
DX: G81.94 Hemiplegia, unspecified affecting left nondominant side (principal)
CPT/HCPCS: 36415; 70450-TC; 71046-TC-FY; 80053; 80177; 81003; 83735; 85025; 87086; 93005; 93010; 99285-25

== ENCOUNTER 2021-10-18 00:06 | Inpatient (IN) | payer OTHER ==
[2021-10-18 00:54] VITALS: BMI 39.7
[2021-10-18] MEDS ORDERED: LORazepam 2 MG TABLET PO ONE (01:44)
[2021-10-18] MEDS ORDERED: LORazepam 1 MG TABLET ONE ×2 (01:54→20:46)
[2021-10-18 02:38] LABS: BASO % 0.3 % (0-2.0); EOS % 2.6 % (0-4.5); HEMATOCRIT 38.2 % (32.4-45.2); HEMOGLOBIN 12.6 GM/dL (10.7-15.3); LYMPH % 29.1 % (8-40); MCHC 32.9 g/dl (32.0-36.0); MEAN CELL VOLUME 88.4 fl (80-96); MEAN PLT VOLUME 6.8 fl (7.5-11.1); MONO % 7.1 % (3.8-10.2); NEUT % 60.9 % (42.8-82.8); PLATELET COUNT 483 10^3/uL (134-434); RBC 4.32 M/mm3 (3.60-5.2); WHITE BLOOD COUNT 11.7 K/mm3 (4.0-10.0)
[2021-10-18 02:58] LABS: CALCIUM 9.5 mg/dL (8.5-10.1)
[2021-10-18 02:59] LABS: ALBUMIN 3.9 g/dl (3.4-5.0); BLOOD UREA NITROGEN 18.1 mg/dL (7-18)
[2021-10-18 03:02] LABS: CREATININE 1.4 mg/dL (0.55-1.3)
[2021-10-18 03:03] LABS: BILIRUBIN,TOTAL 0.4 mg/dL (0.2-1); TOT PROT 9.2 g/dl (6.4-8.2)
[2021-10-18] MEDS ORDERED: POLYETHYLENE GLYCOL (HEALTHYLAX) 3350 17 GM PACKET PO PRN (03:40)
[2021-10-18 08:07] LABS: MAGNESIUM 2.2 mg/dL (1.8-2.4)
[2021-10-18] MEDS ORDERED: ENOXAPARIN NA (PORCINE) 40 MG/0.4 ML DISP.SYRIN SQ ONE (09:14)
[2021-10-18] MEDS ORDERED: HYDROCHLOROTHIAZIDE 12.5 MG CAPSULE (FP) PO SCH (10:00)
[2021-10-18] MEDS ORDERED: MAG HYDROX/AL HYDROX/SIMETH 30 ML UNIT-DOSE CUP PO PRN (10:25)
[2021-10-18] MEDS ORDERED: PANTOPRAZOLE 20 MG TABLET PO ONE (10:44)
[2021-10-18] MEDS ORDERED: HYDROCHLOROTHIAZIDE 25 MG TABLET (FP) ONE (10:44)
[2021-10-18] MEDS ORDERED: amLODIPine BESYLATE 5 MG TABLET (FP) ONE (10:44)
[2021-10-18] MEDS ORDERED: LOSARTAN POTASSIUM 50 MG TABLET ONE (10:45)
[2021-10-18] MEDS ORDERED: levETIRAcetam 500 MG TABLET (FP) PO ONE (10:45)
[2021-10-18] MEDS: HYDROCHLOROTHIAZIDE 12.5 MG CAPSULE (FP) PO SCH (10:53)
[2021-10-18] MEDS: PANTOPRAZOLE 20 MG TABLET PO SCH (10:53)
[2021-10-18] MEDS: LOSARTAN POTASSIUM 50 MG TABLET PO SCH (10:53)
[2021-10-18] MEDS: OXcarbazepine 150 MG TABLET (UD) PO SCH (10:53)
[2021-10-18] MEDS: levETIRAcetam 500 MG TABLET (FP) PO SCH ×2 (10:53→21:28)
[2021-10-18] MEDS: TOPIRAMATE 100 MG TABLET PO SCH (10:53)
[2021-10-18] MEDS: amLODIPine BESYLATE 5 MG TABLET (FP) PO SCH (10:53)
[2021-10-18] MEDS: ATORVASTATIN CA 80 MG TABLET (FP) PO SCH (21:28)
[2021-10-18] MEDS ORDERED: morphine SULFATE 4 MG/ML VIAL ONE (22:09)
[2021-10-18] MEDS ORDERED: busPIRone HCL 5 MG TABLET ONE (22:09)
[2021-10-18] MEDS ORDERED: QUEtiapine FUMARATE 100 MG TABLET (FP) ONE (22:09)
[2021-10-18] MEDS ORDERED: GABAPENTIN 100 MG CAPSULE ONE (22:09)
[2021-10-18] MEDS ORDERED: ONDANSETRON 4 MG/2 ML VIAL ONE (22:10)
[2021-10-18] MEDS ORDERED: INSULIN (LEVEMIR) 100 UNITS/ML UNITS SQ ONE (22:11)
[2021-10-19 06:51] LABS: BASO % 0.8 % (0-2.0); CALCIUM 9.3 mg/dL (8.5-10.1); EOS % 2.3 % (0-4.5); HEMATOCRIT 37.1 % (32.4-45.2); HEMOGLOBIN 12.3 GM/dL (10.7-15.3); MCH 29.5 pg (25.7-33.7); MCHC 33.1 g/dl (32.0-36.0); MEAN CELL VOLUME 88.9 fl (80-96); MEAN PLT VOLUME 7.1 fl (7.5-11.1); NEUT % 65.9 % (42.8-82.8); PLATELET COUNT 408 10^3/uL (134-434); RBC 4.17 M/mm3 (3.60-5.2); RDW 14.2 % (11.6-15.6); WHITE BLOOD COUNT 10.7 K/mm3 (4.0-10.0)
[2021-10-19 06:55] LABS: CREATININE 1.3 mg/dL (0.55-1.3)
[2021-10-19] MEDS ORDERED: amLODIPine BESYLATE 5 MG TABLET (FP) ONE (09:37)
[2021-10-19] MEDS ORDERED: HYDROCHLOROTHIAZIDE 25 MG TABLET (FP) ONE ×2 (09:37→09:47)
[2021-10-19] MEDS ORDERED: PANTOPRAZOLE 20 MG TABLET PO ONE (09:37)
[2021-10-19] MEDS ORDERED: LOSARTAN POTASSIUM 50 MG TABLET ONE (09:38)
[2021-10-19] MEDS ORDERED: TOPIRAMATE 25 MG TABLET ONE (09:38)
[2021-10-19] MEDS ORDERED: levETIRAcetam 500 MG TABLET (FP) PO ONE (09:38)
[2021-10-19] MEDS ORDERED: ENOXAPARIN NA (PORCINE) 40 MG/0.4 ML DISP.SYRIN SQ ONE (09:38)
[2021-10-19] MEDS: amLODIPine BESYLATE 5 MG TABLET (FP) PO SCH (09:53)
[2021-10-19] MEDS: TOPIRAMATE 100 MG TABLET PO SCH (09:53)
[2021-10-19] MEDS: LOSARTAN POTASSIUM 50 MG TABLET PO SCH (09:53)
[2021-10-19] MEDS: levETIRAcetam 500 MG TABLET (FP) PO SCH ×2 (09:53→21:25)
[2021-10-19] MEDS: PANTOPRAZOLE 20 MG TABLET PO SCH (09:53)
[2021-10-19] MEDS: ENOXAPARIN NA (PORCINE) 40 MG/0.4 ML DISP.SYRIN SQ SCH (09:53)
[2021-10-19] MEDS: HYDROCHLOROTHIAZIDE 12.5 MG CAPSULE (FP) PO SCH (09:53)
[2021-10-19] MEDS: OXcarbazepine 150 MG TABLET (UD) PO SCH (09:53)
[2021-10-19] MEDS ORDERED: ACETAMINOPHEN 325 MG TABLET (FP) ONE (12:41)
[2021-10-19] MEDS: ACETAMINOPHEN 325 MG TABLET (FP) PO PRN (12:44)
[2021-10-19] MEDS: LORazepam 2 MG/ML SDV VIAL IVPUSH PRN (13:42)
[2021-10-19 17:33] VITALS: RESP 18
[2021-10-19] MEDS: ATORVASTATIN CA 80 MG TABLET (FP) PO SCH (21:25)
[2021-10-19] MEDS ORDERED: POTASSIUM CHLORIDE TABS 20 MEQ TABLET.ER (FP) PO ONE (21:32)
[2021-10-20] MEDS: LORazepam 2 MG/ML SDV VIAL IVPUSH PRN ×3 (01:10→10:57)
[2021-10-20] MEDS: amLODIPine BESYLATE 5 MG TABLET (FP) PO SCH (09:07)
[2021-10-20] MEDS: levETIRAcetam 500 MG TABLET (FP) PO SCH ×2 (09:07→22:34)
[2021-10-20] MEDS: PANTOPRAZOLE 20 MG TABLET PO SCH (09:07)
[2021-10-20] MEDS: TOPIRAMATE 100 MG TABLET PO SCH (09:07)
[2021-10-20] MEDS: HYDROCHLOROTHIAZIDE 12.5 MG CAPSULE (FP) PO SCH (09:07)
[2021-10-20] MEDS: LOSARTAN POTASSIUM 50 MG TABLET PO SCH (09:07)
[2021-10-20] MEDS: OXcarbazepine 150 MG TABLET (UD) PO SCH (09:08)
[2021-10-20] MEDS: ENOXAPARIN NA (PORCINE) 40 MG/0.4 ML DISP.SYRIN SQ SCH (09:09)
[2021-10-20 10:16] LABS: CALCIUM 9.6 mg/dL (8.5-10.1)
[2021-10-20 10:17] LABS: ALBUMIN 3.7 g/dl (3.4-5.0); BLOOD UREA NITROGEN 17.2 mg/dL (7-18)
[2021-10-20 10:19] LABS: CREATININE 1.4 mg/dL (0.55-1.3)
[2021-10-20 10:21] LABS: BILIRUBIN,TOTAL 0.5 mg/dL (0.2-1); TOT PROT 8.7 g/dl (6.4-8.2)
[2021-10-20] MEDS: ATORVASTATIN CA 80 MG TABLET (FP) PO SCH (22:34)
[2021-10-21] MEDS ORDERED: SODIUM CHLORIDE 1,000 ML IV SCH (07:45)
[2021-10-21] MEDS ORDERED: LORazepam 2 MG/ML SDV VIAL IVPUSH PRN (07:46)
[2021-10-21] MEDS: TOPIRAMATE 100 MG TABLET PO SCH (09:43)
[2021-10-21] MEDS: LOSARTAN POTASSIUM 50 MG TABLET PO SCH (09:43)
[2021-10-21] MEDS: amLODIPine BESYLATE 5 MG TABLET (FP) PO SCH (09:43)
[2021-10-21] MEDS: levETIRAcetam 500 MG TABLET (FP) PO SCH ×2 (09:43→21:45)
[2021-10-21] MEDS: HYDROCHLOROTHIAZIDE 12.5 MG CAPSULE (FP) PO SCH (09:44)
[2021-10-21] MEDS: ENOXAPARIN NA (PORCINE) 40 MG/0.4 ML DISP.SYRIN SQ SCH (09:44)
[2021-10-21] MEDS: DULoxetine HCL 20 MG CAPSULE.DR PO SCH (09:44)
[2021-10-21] MEDS: PANTOPRAZOLE 20 MG TABLET PO SCH (09:44)
[2021-10-21] MEDS: OXcarbazepine 150 MG TABLET (UD) PO SCH (09:45)
[2021-10-21 09:51] LABS: BASO % 0.5 % (0-2.0); EOS % 3.2 % (0-4.5); HEMATOCRIT 38.8 % (32.4-45.2); HEMOGLOBIN 12.7 GM/dL (10.7-15.3); LYMPH % 34.4 % (8-40); MCH 29.5 pg (25.7-33.7); MCHC 32.8 g/dl (32.0-36.0); MEAN CELL VOLUME 89.7 fl (80-96); MONO % 7.6 % (3.8-10.2); NEUT % 54.3 % (42.8-82.8); PLATELET COUNT 439 10^3/uL (134-434); RBC 4.32 M/mm3 (3.60-5.2); RDW 13.9 % (11.6-15.6); WHITE BLOOD COUNT 11.9 K/mm3 (4.0-10.0)
[2021-10-21 10:20] LABS: CALCIUM 9.2 mg/dL (8.5-10.1)
[2021-10-21 10:21] LABS: ALBUMIN 4.1 g/dl (3.4-5.0); BLOOD UREA NITROGEN 13.7 mg/dL (7-18)
[2021-10-21 10:22] LABS: CREATININE 1.3 mg/dL (0.55-1.3)
[2021-10-21 10:24] LABS: BILIRUBIN,TOTAL 0.5 mg/dL (0.2-1); TOT PROT 9.3 g/dl (6.4-8.2)
[2021-10-21 10:53] LABS: MAGNESIUM 2.2 mg/dL (1.8-2.4)
[2021-10-21] MEDS: ATORVASTATIN CA 80 MG TABLET (FP) PO SCH (21:45)
[2021-10-21] MEDS: ACETAMINOPHEN 325 MG TABLET (FP) PO PRN (21:49)
[2021-10-22] MEDS: HYDROCHLOROTHIAZIDE 12.5 MG CAPSULE (FP) PO SCH (10:06)
[2021-10-22] MEDS: ENOXAPARIN NA (PORCINE) 40 MG/0.4 ML DISP.SYRIN SQ SCH (10:06)
[2021-10-22] MEDS: levETIRAcetam 500 MG TABLET (FP) PO SCH (10:06)
[2021-10-22] MEDS: amLODIPine BESYLATE 5 MG TABLET (FP) PO SCH (10:06)
[2021-10-22] MEDS: TOPIRAMATE 100 MG TABLET PO SCH (10:06)
[2021-10-22] MEDS: DULoxetine HCL 20 MG CAPSULE.DR PO SCH (10:07)
[2021-10-22] MEDS: OXcarbazepine 150 MG TABLET (UD) PO SCH (10:07)
[2021-10-22] MEDS: LOSARTAN POTASSIUM 50 MG TABLET PO SCH (10:10)
[2021-10-22] MEDS: PANTOPRAZOLE 20 MG TABLET PO SCH (10:12)
[2021-10-22 10:25] VITALS: PULSE 93
[2021-10-22 11:53] LABS: BASO % 0.5 % (0-2.0); EOS % 3.3 % (0-4.5); HEMATOCRIT 35.3 % (32.4-45.2); HEMOGLOBIN 11.5 GM/dL (10.7-15.3); LYMPH % 26.2 % (8-40); MCHC 32.6 g/dl (32.0-36.0); MEAN CELL VOLUME 89.1 fl (80-96); MEAN PLT VOLUME 6.7 fl (7.5-11.1); MONO % 9.8 % (3.8-10.2); NEUT % 60.2 % (42.8-82.8); PLATELET COUNT 390 10^3/uL (134-434); RBC 3.96 M/mm3 (3.60-5.2); RDW 13.9 % (11.6-15.6); WHITE BLOOD COUNT 9.8 K/mm3 (4.0-10.0)
[2021-10-22 12:28] LABS: BLOOD UREA NITROGEN 10.8 mg/dL (7-18)
[2021-10-22 12:31] LABS: CREATININE 1.2 mg/dL (0.55-1.3)
[2021-10-22 15:10] VITALS: BP 152/85; TEMP 98.2
== END 2021-10-22 18:22 | disposition home or self-care (01) | DRG 53 ==
LOC: JER 00:06 → JERBED 01:43 → J5S 10-19 18:17 → OBSVTOIN 10-20 10:59
PROVIDERS: ADMIT Hospitalist; ATTEND Internal Medicine
DX: G40.909 Epilepsy, unspecified, not intractable, without status epilepticus (principal); N17.9 Acute kidney failure, unspecified; G81.94 Hemiplegia, unspecified affecting left nondominant side; E78.5 Hyperlipidemia, unspecified; F41.8 Other specified anxiety disorders; G43.909 Migraine, unspecified, not intractable, without status migrainosus; I10 Essential (primary) hypertension; K21.9 Gastro-esophageal reflux disease without esophagitis
CPT/HCPCS: 0241U-QW; 36415; 80048; 80053; 82550; 83605; 83735; 84100; 84146; 84439; 84443; 85025; 93005; 93010; 95816; 99285-25; G0378

== ENCOUNTER 2021-10-28 15:13 | Inpatient (IN) | payer OTHER ==
[2021-10-28] MEDS ORDERED: LORazepam 2 MG/ML SDV VIAL IVPUSH ONE ×2 (16:30→18:05)
[2021-10-28 16:51] LABS: BASO % 0.4 % (0-2.0); EOS % 2.4 % (0-4.5); HEMATOCRIT 40.8 % (32.4-45.2); HEMOGLOBIN 13.2 GM/dL (10.7-15.3); LYMPH % 29.5 % (8-40); MCH 29.1 pg (25.7-33.7); MCHC 32.4 g/dl (32.0-36.0); MEAN CELL VOLUME 89.6 fl (80-96); MEAN PLT VOLUME 6.7 fl (7.5-11.1); MONO % 5.6 % (3.8-10.2); NEUT % 62.1 % (42.8-82.8); PLATELET COUNT 411 10^3/uL (134-434); RBC 4.55 M/mm3 (3.60-5.2); RDW 14.2 % (11.6-15.6); WHITE BLOOD COUNT 12.4 K/mm3 (4.0-10.0)
[2021-10-28 17:09] LABS: CALCIUM 9.2 mg/dL (8.5-10.1)
[2021-10-28 17:10] LABS: ALBUMIN 3.8 g/dl (3.4-5.0); BLOOD UREA NITROGEN 16.2 mg/dL (7-18)
[2021-10-28 17:13] LABS: CREATININE 1.3 mg/dL (0.55-1.3)
[2021-10-28 17:14] LABS: BILIRUBIN,TOTAL 0.5 mg/dL (0.2-1); TOT PROT 9.4 g/dl (6.4-8.2)
[2021-10-28 17:43] LABS: INR 1.04 (0.83-1.09)
[2021-10-28 17:45] LABS: ACTIVATED PTT 27.1 SECONDS (25.2-36.5)
[2021-10-29] MEDS ORDERED: levETIRAcetam 500 MG TABLET (FP) PO ONE (00:51)
[2021-10-29] MEDS: levETIRAcetam 500 MG TABLET (FP) PO SCH ×3 (00:57→21:50)
[2021-10-29 03:25] LABS: EPI CELLS >36 /uL (0-25.1); HYALINE CASTS 1 /uL (0-3.1); PH,URINE 5.5 (5.0-8.0); URINE APPEARANCE CLEAR; URINE BACTERIA 390 /uL (0-1359); URINE BILIRUBIN NEGATIVE (NEGATIVE); URINE COLOR YELLOW; URINE GLUCOSE (UA) NEGATIVE (NEGATIVE); URINE KETONE TRACE (NEGATIVE); URINE LEUK ESTERASE TRACE (NEGATIVE); URINE NITRITE NEGATIVE (NEGATIVE); URINE PROTEIN NEGATIVE (NEGATIVE); URINE RBC 28 /uL (0-23.9); URINE WBC 32 /uL (0-25.8)
[2021-10-29 08:56] LABS: HEMATOCRIT 38.2 % (32.4-45.2); HEMOGLOBIN 12.6 GM/dL (10.7-15.3); MCH 29.2 pg (25.7-33.7); MCHC 32.9 g/dl (32.0-36.0); MEAN CELL VOLUME 88.7 fl (80-96); MEAN PLT VOLUME 6.6 fl (7.5-11.1); PLATELET COUNT 446 10^3/uL (134-434); RBC 4.31 M/mm3 (3.60-5.2); RDW 13.8 % (11.6-15.6); WHITE BLOOD COUNT 11.8 K/mm3 (4.0-10.0)
[2021-10-29 09:30] LABS: ALBUMIN 3.8 g/dl (3.4-5.0); BLOOD UREA NITROGEN 17.4 mg/dL (7-18); CREATININE 1.2 mg/dL (0.55-1.3)
[2021-10-29 09:31] LABS: BILIRUBIN,TOTAL 0.4 mg/dL (0.2-1)
[2021-10-29 09:32] LABS: TOT PROT 8.6 g/dl (6.4-8.2)
[2021-10-29 09:33] LABS: CALCIUM 9.2 mg/dL (8.5-10.1); PHOSPHOROUS 3.6 mg/dL (2.5-4.9)
[2021-10-29] MEDS: LOSARTAN POTASSIUM 50 MG TABLET PO SCH (09:33)
[2021-10-29] MEDS: DULoxetine HCL 20 MG CAPSULE.DR PO SCH (09:34)
[2021-10-29] MEDS: ENOXAPARIN NA (PORCINE) 40 MG/0.4 ML DISP.SYRIN SQ SCH ×2 (09:34→21:50)
[2021-10-29] MEDS: OXcarbazepine 150 MG TABLET (UD) PO SCH (09:34)
[2021-10-29] MEDS: HYDROCHLOROTHIAZIDE 12.5 MG CAPSULE (FP) PO SCH (09:34)
[2021-10-29] MEDS: amLODIPine BESYLATE 5 MG TABLET (FP) PO SCH (09:34)
[2021-10-29] MEDS: PANTOPRAZOLE 40 MG TABLET PO SCH (09:34)
[2021-10-29] MEDS ORDERED: TOPIRAMATE 100 MG TABLET PO SCH (10:00)
[2021-10-29 11:19] VITALS: BMI 39.4
[2021-10-29] MEDS ORDERED: ACETAMINOPHEN 325 MG TABLET (FP) PO PRN (19:15)
[2021-10-29] MEDS: TOPIRAMATE 100 MG TABLET PO SCH (21:50)
[2021-10-29] MEDS ORDERED: ATORVASTATIN CA 80 MG TABLET (FP) PO SCH (22:00)
[2021-10-30 06:41] VITALS: RESP 18
[2021-10-30] MEDS: OXcarbazepine 150 MG TABLET (UD) PO SCH (09:29)
[2021-10-30] MEDS: HYDROCHLOROTHIAZIDE 12.5 MG CAPSULE (FP) PO SCH (09:29)
[2021-10-30] MEDS: levETIRAcetam 500 MG TABLET (FP) PO SCH (09:29)
[2021-10-30] MEDS: ENOXAPARIN NA (PORCINE) 40 MG/0.4 ML DISP.SYRIN SQ SCH (09:29)
[2021-10-30] MEDS: TOPIRAMATE 100 MG TABLET PO SCH (09:29)
[2021-10-30] MEDS: amLODIPine BESYLATE 5 MG TABLET (FP) PO SCH (09:29)
[2021-10-30] MEDS: PANTOPRAZOLE 40 MG TABLET PO SCH (09:29)
[2021-10-30] MEDS: DULoxetine HCL 20 MG CAPSULE.DR PO SCH (09:29)
[2021-10-30] MEDS: LOSARTAN POTASSIUM 50 MG TABLET PO SCH (09:29)
[2021-10-30 13:01] LABS: BASO % 0.6 % (0-2.0); EOS % 2.5 % (0-4.5); HEMATOCRIT 39.3 % (32.4-45.2); LYMPH % 31.4 % (8-40); MCHC 33.1 g/dl (32.0-36.0); MEAN CELL VOLUME 87.9 fl (80-96); MEAN PLT VOLUME 6.3 fl (7.5-11.1); MONO % 8.2 % (3.8-10.2); NEUT % 57.3 % (42.8-82.8); PLATELET COUNT 480 10^3/uL (134-434); RBC 4.47 M/mm3 (3.60-5.2); RDW 14.1 % (11.6-15.6); WHITE BLOOD COUNT 14.8 K/mm3 (4.0-10.0)
[2021-10-30 13:22] LABS: CALCIUM 9.8 mg/dL (8.5-10.1)
[2021-10-30 13:23] LABS: MAGNESIUM 2.3 mg/dL (1.8-2.4)
[2021-10-30 13:26] LABS: CREATININE 1.4 mg/dL (0.55-1.3); PHOSPHOROUS 3.1 mg/dL (2.5-4.9)
[2021-10-30 13:27] LABS: BILIRUBIN,TOTAL 0.6 mg/dL (0.2-1); TOT PROT 9.5 g/dl (6.4-8.2)
[2021-10-30] MEDS ORDERED: POTASSIUM CHLORIDE ORAL LIQUID 20 MEQ/15 ML PO ONE ×2 (13:56→15:05)
[2021-10-30] MEDS ORDERED: KCL 10 MEQ IVPB 10 MEQ/100 ML INFUS.BAG IVPB SCH (14:30)
[2021-10-30 15:04] VITALS: BP 117/67; PULSE 94; TEMP 98.9
[2021-10-30] MEDS ORDERED: OXcarbazepine 150 MG TABLET (UD) PO SCH (22:00)
== END 2021-10-30 18:12 | disposition home or self-care (01) | DRG 53 ==
LOC: JER 15:13 → JERBED 19:27 → J8W 10-29 02:14
PROVIDERS: ADMIT Internal Medicine; ATTEND Internal Medicine
DX: G40.909 Epilepsy, unspecified, not intractable, without status epilepticus (principal); I10 Essential (primary) hypertension; D72.829 Elevated white blood cell count, unspecified; E78.5 Hyperlipidemia, unspecified; F41.9 Anxiety disorder, unspecified; K21.9 Gastro-esophageal reflux disease without esophagitis; E66.9 Obesity, unspecified; Z68.30 Body mass index [BMI] 30.0-30.9, adult
CPT/HCPCS: 36415; 70450-TC; 71045-TC-FY; 80053; 80177; 80183; 80201; 81003; 82962; 83735; 84100; 85025; 85027; 85610; 85730; 87086; 93005; 93010; 99284-25; 99285-25; C9803-CS; U0003; U0005

== ENCOUNTER 2021-11-01 09:04 | Emergency (ER) | payer OTHER ==
[2021-11-01 09:18] VITALS: BP 133/84; PULSE 106; RESP 18; TEMP 97.5; BMI 42.0
[2021-11-01] MEDS ORDERED: OXcarbazepine 300 MG/5 ML 250 ML BULK BOTTLE PO ONE (11:05)
[2021-11-01] MEDS ORDERED: OXcarbazepine 300 MG TABLET (UD) PO ONE (11:15)
[2021-11-01] MEDS ORDERED: IBUPROFEN 400 MG TABLET (FP) PO ONE ×2 (11:32→11:41)
== END 2021-11-01 11:55 | disposition home or self-care (01) ==
LOC: JER 09:04
DX: G40.89 Other seizures (principal)
CPT/HCPCS: 82962; 93005; 93010; 99284-25

== ENCOUNTER 2021-11-06 22:39 | Emergency (ER) | payer OTHER ==
[2021-11-06 23:07] VITALS: BP 103/71; PULSE 87; RESP 20; TEMP 98; BMI 39.7
[2021-11-06 23:53] LABS: BASO % 0.5 % (0-2.0); EOS % 2.7 % (0-4.5); HEMATOCRIT 36.7 % (32.4-45.2); HEMOGLOBIN 12.3 GM/dL (10.7-15.3); MCHC 33.5 g/dl (32.0-36.0); MEAN CELL VOLUME 89.6 fl (80-96); MEAN PLT VOLUME 6.3 fl (7.5-11.1); MONO % 6.3 % (3.8-10.2); NEUT % 62.5 % (42.8-82.8); PLATELET COUNT 409 10^3/uL (134-434); WHITE BLOOD COUNT 11.6 K/mm3 (4.0-10.0)
[2021-11-07 00:12] LABS: ALBUMIN 3.8 g/dl (3.4-5.0); BLOOD UREA NITROGEN 16.2 mg/dL (7-18); MAGNESIUM 1.7 mg/dL (1.8-2.4)
[2021-11-07 00:15] LABS: CREATININE 1.2 mg/dL (0.55-1.3)
[2021-11-07] MEDS ORDERED: MAGNESIUM SULF 50% (8.12 MEQ/2 ML-1 GM VIAL) IVPB ONE (00:27)
[2021-11-07] MEDS ORDERED: MAGNESIUM OXIDE 400 MG TABLET (FP) PO ONE (00:46)
[2021-11-07] MEDS ORDERED: MAGNESIUM OXIDE 400 MG TABLET (FP) ONE (00:49)
[2021-11-07 00:54] LABS: BILIRUBIN,TOTAL 0.3 mg/dL (0.2-1)
== END 2021-11-07 02:30 | disposition home or self-care (01) ==
LOC: JER 22:39
DX: M62.838 Other muscle spasm (principal)
CPT/HCPCS: 36415; 80053; 83735; 85025; 99283-25

== ENCOUNTER 2021-11-13 15:40 | Inpatient (IN) | payer OTHER ==
[2021-11-13] MEDS ORDERED: ACETAMINOPHEN 1000 MG/100 ML BAG IVPB ONE (16:41)
[2021-11-13] MEDS ORDERED: ACETAMINOPHEN INJECTION 100 ML IVPB ONE (16:54)
[2021-11-13 17:56] LABS: VENOUS BASE EXCESS -0.9 mmol/L (-2-2); VENOUS O2 SATURATION 82.1 % (70-80); VENOUS PCO2 50.7 mmHg (38-52); VENOUS PH 7.324 (7.310-7.410)
[2021-11-13 18:03] LABS: BASO % 0.3 % (0-2.0); EOS % 1.3 % (0-4.5); HEMATOCRIT 35.9 % (32.4-45.2); HEMOGLOBIN 12.2 GM/dL (10.7-15.3); LYMPH % 13.8 % (8-40); MCH 30.3 pg (25.7-33.7); MEAN CELL VOLUME 89.1 fl (80-96); MEAN PLT VOLUME 6.5 fl (7.5-11.1); MONO % 4.4 % (3.8-10.2); NEUT % 80.2 % (42.8-82.8); PLATELET COUNT 471 10^3/uL (134-434); RBC 4.03 M/mm3 (3.60-5.2); RDW 13.8 % (11.6-15.6); WHITE BLOOD COUNT 12.1 K/mm3 (4.0-10.0)
[2021-11-13 18:24] LABS: ALBUMIN 3.7 g/dl (3.4-5.0); BLOOD UREA NITROGEN 15.7 mg/dL (7-18); MAGNESIUM 2.3 mg/dL (1.8-2.4)
[2021-11-13 18:27] LABS: CREATININE 1.4 mg/dL (0.55-1.3)
[2021-11-13 18:29] LABS: TOT PROT 8.9 g/dl (6.4-8.2)
[2021-11-13 18:31] LABS: BILIRUBIN,TOTAL 0.3 mg/dL (0.2-1)
[2021-11-13] MEDS ORDERED: SODIUM CHLORIDE 1,000 ML IV SCH (22:30)
[2021-11-14] MEDS ORDERED: levETIRAcetam 500 MG TABLET (FP) PO ONE (01:13)
[2021-11-14] MEDS: OXcarbazepine 150 MG TABLET (UD) PO SCH ×2 (01:41→10:51)
[2021-11-14] MEDS: levETIRAcetam 500 MG TABLET (FP) PO SCH ×2 (01:41→09:31)
[2021-11-14 03:13] VITALS: BMI 37.0
[2021-11-14] MEDS ORDERED: HEPARIN NA (PORCINE) 5,000 UNITS/ML 1ML VIAL SQ SCH (06:00)
[2021-11-14 07:16] LABS: HEMATOCRIT 35.4 % (32.4-45.2); HEMOGLOBIN 11.7 GM/dL (10.7-15.3); MCHC 33.2 g/dl (32.0-36.0); MEAN CELL VOLUME 90.6 fl (80-96); MEAN PLT VOLUME 6.7 fl (7.5-11.1); PLATELET COUNT 452 10^3/uL (134-434); RBC 3.91 M/mm3 (3.60-5.2); RDW 13.7 % (11.6-15.6); WHITE BLOOD COUNT 13.4 K/mm3 (4.0-10.0)
[2021-11-14 07:34] LABS: CALCIUM 8.9 mg/dL (8.5-10.1)
[2021-11-14 07:35] LABS: ALBUMIN 3.5 g/dl (3.4-5.0); MAGNESIUM 2.2 mg/dL (1.8-2.4)
[2021-11-14 07:38] LABS: CREATININE 1.2 mg/dL (0.55-1.3); PHOSPHOROUS 3.4 mg/dL (2.5-4.9)
[2021-11-14 07:39] LABS: TOT PROT 8.3 g/dl (6.4-8.2)
[2021-11-14 07:40] LABS: BILIRUBIN,TOTAL 0.3 mg/dL (0.2-1)
[2021-11-14 09:26] VITALS: RESP 18; TEMP 98.2
[2021-11-14] MEDS ORDERED: LOSARTAN POTASSIUM 50 MG TABLET PO SCH (10:00)
[2021-11-14] MEDS ORDERED: HYDROCHLOROTHIAZIDE 12.5 MG CAPSULE (FP) PO SCH (10:00)
[2021-11-14] MEDS ORDERED: amLODIPine BESYLATE 5 MG TABLET (FP) PO SCH (10:00)
[2021-11-14] MEDS ORDERED: PANTOPRAZOLE 40 MG TABLET PO SCH (10:00)
[2021-11-14] MEDS ORDERED: TOPIRAMATE 100 MG TABLET PO SCH (10:00)
[2021-11-14] MEDS ORDERED: DULoxetine HCL 20 MG CAPSULE.DR PO SCH (10:00)
[2021-11-14 12:02] LABS: LACTIC ACID 2.3 mmol/L (0.4-2.0)
[2021-11-14 14:05] VITALS: BP 139/78; PULSE 85
[2021-11-14] MEDS ORDERED: ATORVASTATIN CA 80 MG TABLET (FP) PO SCH (22:00)
== END 2021-11-14 16:30 | disposition home or self-care (01) | DRG 204 ==
LOC: JER 15:40 → JERBED 18:38 → OBSVTOIN 21:09 → J4W 11-14 02:53
PROVIDERS: ADMIT Internal Medicine; ATTEND Internal Medicine
DX: I95.1 Orthostatic hypotension (principal); E87.2 Acidosis; R56.9 Unspecified convulsions; E86.0 Dehydration; E78.5 Hyperlipidemia, unspecified; I10 Essential (primary) hypertension; K21.9 Gastro-esophageal reflux disease without esophagitis; R00.0 Tachycardia, unspecified
CPT/HCPCS: 36415; 70450-TC; 71045-TC-FY; 80053; 80177; 82550; 82803; 82962; 83605; 83735; 84100; 84443; 84484; 85025; 85027; 93005; 93010; 99285-25; C9803-CS; G0378; J1644; U0003; U0005

== ENCOUNTER 2022-10-06 19:25 | Emergency (ER) | payer OTHER ==
[2022-10-06 19:31] VITALS: BP 108/74; PULSE 103; RESP 18; TEMP 98; BMI 36.1
[2022-10-06 20:53] LABS: BASO % 0.4 % (0-2.0); EOS % 1.6 % (0-4.5); HEMATOCRIT 36.3 % (32.4-45.2); HEMOGLOBIN 11.9 GM/dL (10.7-15.3); LYMPH % 19.3 % (8-40); MCH 28.8 pg (25.7-33.7); MCHC 32.7 g/dl (32.0-36.0); MEAN CELL VOLUME 88.1 fl (80-96); MEAN PLT VOLUME 6.2 fl (7.5-11.1); MONO % 5.5 % (3.8-10.2); NEUT % 73.2 % (42.8-82.8); PLATELET COUNT 438 10^3/uL (134-434); RBC 4.12 M/mm3 (3.60-5.2); RDW 13.8 % (11.6-15.6); WHITE BLOOD COUNT 13.6 K/mm3 (4.0-10.0)
[2022-10-06 21:27] LABS: POTASSIUM 3.8 mmol/L (3.5-5.1)
[2022-10-06 21:29] LABS: CALCIUM 9.6 mg/dL (8.5-10.1)
[2022-10-06 21:30] LABS: ALBUMIN 3.7 g/dl (3.4-5.0); BLOOD UREA NITROGEN 20.8 mg/dL (7-18); MAGNESIUM 2.1 mg/dL (1.8-2.4)
[2022-10-06 21:33] LABS: CREATININE 1.2 mg/dL (0.55-1.3)
[2022-10-06 21:34] LABS: BILIRUBIN,TOTAL 0.3 mg/dL (0.2-1); TOT PROT 9.1 g/dl (6.4-8.2)
[2022-10-06] MEDS ORDERED: ONDANSETRON 4 MG/2 ML VIAL IVPUSH ONE (21:37)
[2022-10-06] MEDS ORDERED: ACETAMINOPHEN 1000 MG/100 ML BAG IVPB ONE (23:11)
[2022-10-06] MEDS ORDERED: ACETAMINOPHEN INJECTION 100 ML IVPB ONE (23:14)
[2022-10-07 00:21] LABS: EPI CELLS >36 /uL (0-25.1); HYALINE CASTS 9 /uL (0-3.1); URINE APPEARANCE TURBID; URINE BACTERIA 3002 /uL (0-1359); URINE BILIRUBIN NEGATIVE (NEGATIVE); URINE COLOR YELLOW; URINE GLUCOSE (UA) NEGATIVE (NEGATIVE); URINE KETONE TRACE (NEGATIVE); URINE LEUK ESTERASE 2+ (NEGATIVE); URINE NITRITE NEGATIVE (NEGATIVE); URINE PROTEIN TRACE (NEGATIVE); URINE RBC 24 /uL (0-23.9); URINE WBC 298 /uL (0-25.8)
[2022-10-07] MEDS ORDERED: CEPHALEXIN MONOHYDRATE 500 MG CAPSULE (UD) PO ONE (00:31)
== END 2022-10-07 00:53 | disposition home or self-care (01) ==
LOC: JER 19:25
PROC: 3E033NZ Introduction of Analgesics, Hypnotics, Sedatives into Peripheral Vein, Percutaneous Approach (ICD-10-PCS; principal; 2022-10-06)
DX: R11.0 Nausea (principal); R25.1 Tremor, unspecified; R53.1 Weakness; N39.0 Urinary tract infection, site not specified; F41.9 Anxiety disorder, unspecified; R05.9 Cough, unspecified
CPT/HCPCS: 36415; 80053; 81003; 83735; 84443; 84484; 84703; 85025; 87086; 93005; 93010; 99284-25

== ENCOUNTER 2023-01-19 13:49 | Emergency (ER) | payer OTHER ==
[2023-01-19 14:11] VITALS: RESP 20; BMI 40.2
[2023-01-19] MEDS ORDERED: LORazepam 0.5 MG TABLET ONE (15:48)
[2023-01-19] MEDS ORDERED: SODIUM CHLORIDE 0.9% 500 ML INFUS.BAG IV ONE (15:48)
[2023-01-19] MEDS ORDERED: LORazepam 2 MG TABLET PO ONE (15:49)
[2023-01-19] MEDS: LORazepam 2 MG TABLET PO ONE ×2 (15:50→15:51)
[2023-01-19 15:59] LABS: BASO % 0.5 % (0-2.0); EOS % 2.1 % (0-4.5); HEMATOCRIT 39.5 % (32.4-45.2); HEMOGLOBIN 12.3 GM/dL (10.7-15.3); LYMPH % 25.5 % (8-40); MCH 28.2 pg (25.7-33.7); MCHC 31.1 g/dl (32.0-36.0); MEAN CELL VOLUME 90.6 fl (80-96); MEAN PLT VOLUME 6.7 fl (7.5-11.1); MONO % 7.1 % (3.8-10.2); NEUT % 64.8 % (42.8-82.8); PLATELET COUNT 515 10^3/uL (134-434); RBC 4.36 M/mm3 (3.60-5.2); RDW 13.2 % (11.6-15.6); WHITE BLOOD COUNT 13.5 K/mm3 (4.0-10.0)
[2023-01-19 16:11] LABS: PROTHROMBIN TIME (PATIENT) 11.6 SEC (9.7-13.0)
[2023-01-19 16:36] LABS: POTASSIUM 3.8 mmol/L (3.5-5.1)
[2023-01-19 16:39] LABS: ALBUMIN 3.7 g/dl (3.4-5.0); BLOOD UREA NITROGEN 19.3 mg/dL (7-18); MAGNESIUM 2.5 mg/dL (1.8-2.4)
[2023-01-19 16:42] LABS: CREATININE 1.3 mg/dL (0.55-1.3)
[2023-01-19 16:43] LABS: TOT PROT 9.2 g/dl (6.4-8.2)
[2023-01-19 16:44] LABS: BILIRUBIN,TOTAL 0.3 mg/dL (0.2-1)
[2023-01-19 18:40] LABS: EPI CELLS >36 /uL (0-25.1); HYALINE CASTS 4 /uL (0-3.1); PH,URINE 5.5 (5.0-8.0); URINE APPEARANCE CLOUDY; URINE BACTERIA 910 /uL (0-1359); URINE BILIRUBIN NEGATIVE (NEGATIVE); URINE COLOR YELLOW; URINE GLUCOSE (UA) NEGATIVE (NEGATIVE); URINE KETONE NEGATIVE (NEGATIVE); URINE LEUK ESTERASE 2+ (NEGATIVE); URINE NITRITE NEGATIVE (NEGATIVE); URINE PROTEIN TRACE (NEGATIVE); URINE WBC 126 /uL (0-25.8)
[2023-01-19 20:31] VITALS: BP 105/68; PULSE 86; TEMP 97.4
== END 2023-01-20 00:01 | disposition home or self-care (01) ==
LOC: JER 13:49
DX: F41.9 Anxiety disorder, unspecified (principal); R00.2 Palpitations; N39.0 Urinary tract infection, site not specified; R53.1 Weakness; L90.5 Scar conditions and fibrosis of skin; Z20.822 Contact with and (suspected) exposure to COVID-19
CPT/HCPCS: 0241U-QW; 36415; 71045-TC-FY; 71275-TC; 80053; 80177; 81003; 82550; 83735; 84439; 84443; 84481; 84484; 85025; 85379; 85610; 85730; 87086; 93005; 93010; 93970-TC; 99285-25

== ENCOUNTER 2023-02-04 23:02 | Emergency (ER) | payer OTHER ==
[2023-02-04 23:09] VITALS: TEMP 98.2; BMI 39.6
[2023-02-04] MEDS ORDERED: guaiFENesin 600 MG TABLET.ER (FP) PO ONE (23:58)
[2023-02-05 01:03] LABS: BASO % 0.4 % (0-2.0); EOS % 1.8 % (0-4.5); HEMATOCRIT 37.7 % (32.4-45.2); HEMOGLOBIN 11.9 GM/dL (10.7-15.3); LYMPH % 24.8 % (8-40); MCH 28.5 pg (25.7-33.7); MCHC 31.7 g/dl (32.0-36.0); MEAN CELL VOLUME 90.1 fl (80-96); MEAN PLT VOLUME 6.8 fl (7.5-11.1); MONO % 8.1 % (3.8-10.2); NEUT % 64.9 % (42.8-82.8); PLATELET COUNT 501 10^3/uL (134-434); RBC 4.19 M/mm3 (3.60-5.2); RDW 13.1 % (11.6-15.6); WHITE BLOOD COUNT 13.9 K/mm3 (4.0-10.0)
[2023-02-05 01:21] LABS: POTASSIUM 3.5 mmol/L (3.5-5.1)
[2023-02-05 01:23] LABS: ALBUMIN 3.5 g/dl (3.4-5.0); CALCIUM 8.5 mg/dL (8.5-10.1)
[2023-02-05 01:24] LABS: BLOOD UREA NITROGEN 17.7 mg/dL (7-18)
[2023-02-05 01:26] LABS: CREATININE 1.4 mg/dL (0.55-1.3)
[2023-02-05 01:28] LABS: BILIRUBIN,TOTAL 0.4 mg/dL (0.2-1); TOT PROT 8.9 g/dl (6.4-8.2)
[2023-02-05] MEDS ORDERED: ACETAMINOPHEN 500 MG TABLET (FP) PO ONE (01:30)
[2023-02-05 01:31] LABS: N-TERMINAL BNP 13.1 pg/ml (5-125)
[2023-02-05 02:00] LABS: INR 1.12 (0.83-1.09)
[2023-02-05 02:03] LABS: ACTIVATED PTT 30.8 SECONDS (25.2-36.5)
[2023-02-05] MEDS ORDERED: ACETAMINOPHEN 500 MG TABLET (FP) ONE (02:06)
[2023-02-05 04:28] VITALS: BP 116/65; PULSE 80; RESP 19
== END 2023-02-05 05:31 | disposition home or self-care (01) ==
LOC: JER 23:02
DX: R05.9 Cough, unspecified (principal); R53.1 Weakness; R07.89 Other chest pain; R51.9 Headache, unspecified; R09.81 Nasal congestion; R68.83 Chills (without fever); R63.8 Other symptoms and signs concerning food and fluid intake; R42 Dizziness and giddiness; Z20.822 Contact with and (suspected) exposure to COVID-19
CPT/HCPCS: 0241U-QW; 36415; 71045-TC-FY; 71275-TC; 80053; 83880; 84484; 85025; 85379; 85610; 85730; 93005; 93010; 99285-25

== ENCOUNTER 2023-02-09 13:54 | Emergency (ER) | payer OTHER ==
[2023-02-09] MEDS ORDERED: ONDANSETRON 4 MG/2 ML VIAL IVPUSH ONE (14:35)
[2023-02-09] MEDS ORDERED: ACETAMINOPHEN 1000 MG/100 ML BAG IVPB ONE (14:35)
[2023-02-09 14:40] VITALS: RESP 18; TEMP 98; BMI 39.6
[2023-02-09] MEDS ORDERED: ONDANSETRON 4 MG/2 ML VIAL ONE (14:56)
[2023-02-09] MEDS ORDERED: ACETAMINOPHEN INJECTION 100 ML IVPB ONE (14:56)
[2023-02-09 15:06] LABS: BASO % 0.4 % (0-2.0); HEMATOCRIT 35.5 % (32.4-45.2); HEMOGLOBIN 11.7 GM/dL (10.7-15.3); LYMPH % 24.3 % (8-40); MEAN CELL VOLUME 87.9 fl (80-96); MEAN PLT VOLUME 6.4 fl (7.5-11.1); NEUT % 66.3 % (42.8-82.8); PLATELET COUNT 474 10^3/uL (134-434); RBC 4.04 M/mm3 (3.60-5.2); RDW 13.1 % (11.6-15.6); WHITE BLOOD COUNT 10.8 K/mm3 (4.0-10.0)
[2023-02-09 15:15] LABS: ACTIVATED PTT 30.7 SECONDS (25.2-36.5)
[2023-02-09 15:28] LABS: POTASSIUM 3.1 mmol/L (3.5-5.1)
[2023-02-09 15:29] LABS: INR 1.06 (0.83-1.09); PROTHROMBIN TIME (PATIENT) 12.3 SEC (9.7-13.0)
[2023-02-09 15:30] LABS: ALBUMIN 3.5 g/dl (3.4-5.0); CALCIUM 8.7 mg/dL (8.5-10.1)
[2023-02-09 15:32] LABS: BLOOD UREA NITROGEN 19.3 mg/dL (7-18)
[2023-02-09 15:34] LABS: CREATININE 1.5 mg/dL (0.55-1.3)
[2023-02-09 15:35] LABS: TOT PROT 8.2 g/dl (6.4-8.2)
[2023-02-09 15:36] LABS: BILIRUBIN,TOTAL 0.7 mg/dL (0.2-1)
[2023-02-09 16:11] VITALS: BP 119/77; PULSE 105
== END 2023-02-09 16:25 | disposition short-term general hospital (02) ==
LOC: JER 13:54
PROC: 3E033NZ Introduction of Analgesics, Hypnotics, Sedatives into Peripheral Vein, Percutaneous Approach (ICD-10-PCS; principal; 2023-02-09)
PROC: 3E033GC Introduction of Other Therapeutic Substance into Peripheral Vein, Percutaneous Approach (ICD-10-PCS; 2023-02-09)
DX: R53.1 Weakness (principal); D32.0 Benign neoplasm of cerebral meninges; I62.9 Nontraumatic intracranial hemorrhage, unspecified; R29.705 NIHSS score 5; R47.81 Slurred speech; Z20.822 Contact with and (suspected) exposure to COVID-19
CPT/HCPCS: 0241U-QW; 36415; 70450-TC; 70496-TC; 70498-TC; 80053; 80061; 82550; 82962; 83036; 84484; 85025; 85610; 85730; 86850; 86900; 86901; 93005; 93010; 99291; 99292; Q9967

== ENCOUNTER 2023-09-05 14:38 | Observation (INO) | payer OTHER ==
[2023-09-05 15:00] VITALS: BMI 36.6
[2023-09-05 16:24] LABS: BASO % 0.3 % (0-2.0); EOS % 4.5 % (0-4.5); HEMATOCRIT 31.1 % (32.4-45.2); HEMOGLOBIN 10.1 GM/dL (10.7-15.3); LYMPH % 26.1 % (8-40); MCH 28.7 pg (25.7-33.7); MCHC 32.3 g/dl (32.0-36.0); MEAN CELL VOLUME 88.8 fl (80-96); MEAN PLT VOLUME 6.5 fl (7.5-11.1); MONO % 6.3 % (3.8-10.2); NEUT % 62.8 % (42.8-82.8); PLATELET COUNT 415 10^3/uL (134-434); RBC 3.51 M/mm3 (3.60-5.2); RDW 15.7 % (11.6-15.6); WHITE BLOOD COUNT 13.8 K/mm3 (4.0-10.0)
[2023-09-05 16:31] LABS: INR 0.97 (0.83-1.09); PROTHROMBIN TIME (PATIENT) 11.2 SEC (9.7-13.0)
[2023-09-05 16:34] LABS: ACTIVATED PTT 28.6 SECONDS (25.2-36.5)
[2023-09-05 16:47] LABS: POTASSIUM 3.4 mmol/L (3.5-5.1)
[2023-09-05 16:48] LABS: CALCIUM 8.6 mg/dL (8.5-10.1)
[2023-09-05 16:49] LABS: ALBUMIN 3.1 g/dl (3.4-5.0)
[2023-09-05 16:54] LABS: TOT PROT 7.5 g/dl (6.4-8.2)
[2023-09-05 16:55] LABS: BILIRUBIN,TOTAL 0.5 mg/dL (0.2-1)
[2023-09-05] MEDS ORDERED: DOCUSATE SODIUM 100 MG CAPSULE (FP) PO PRN (21:50)
[2023-09-05] MEDS: OXcarbazepine 150 MG TABLET (UD) PO SCH (22:30)
[2023-09-05] MEDS: levETIRAcetam 500 MG TABLET (FP) PO SCH (22:30)
[2023-09-05 23:25] LABS: EPI CELLS >36 /uL (0-25.1); HYALINE CASTS 1 /uL (0-3.1); PH,URINE 5.5 (5.0-8.0); URINE APPEARANCE CLOUDY; URINE BACTERIA >9,000 /uL (0-1359); URINE BILIRUBIN NEGATIVE (NEGATIVE); URINE COLOR YELLOW; URINE GLUCOSE (UA) NEGATIVE (NEGATIVE); URINE KETONE TRACE (NEGATIVE); URINE LEUK ESTERASE 1+ (NEGATIVE); URINE NITRITE POSITIVE (NEGATIVE); URINE PROTEIN 1+ (NEGATIVE); URINE RBC 10 /uL (0-23.9); URINE UROBILINOGEN 0.2 mg/dL (0.2-1.0); URINE WBC 82 /uL (0-25.8)
[2023-09-06] MEDS: ACETAMINOPHEN 325 MG TABLET (FP) PO PRN (01:13)
[2023-09-06 07:10] LABS: BASO % 0.3 % (0-2.0); EOS % 5.1 % (0-4.5); HEMATOCRIT 30.2 % (32.4-45.2); HEMOGLOBIN 9.8 GM/dL (10.7-15.3); LYMPH % 26.1 % (8-40); MCH 28.5 pg (25.7-33.7); MCHC 32.4 g/dl (32.0-36.0); MEAN CELL VOLUME 88.1 fl (80-96); MEAN PLT VOLUME 6.4 fl (7.5-11.1); MONO % 5.9 % (3.8-10.2); NEUT % 62.6 % (42.8-82.8); PLATELET COUNT 379 10^3/uL (134-434); RBC 3.43 M/mm3 (3.60-5.2); RDW 15.5 % (11.6-15.6); WHITE BLOOD COUNT 12.6 K/mm3 (4.0-10.0)
[2023-09-06 07:34] LABS: POTASSIUM 3.2 mmol/L (3.5-5.1)
[2023-09-06 07:47] LABS: BLOOD UREA NITROGEN 16.8 mg/dL (7-18); CALCIUM 8.4 mg/dL (8.5-10.1)
[2023-09-06 07:48] LABS: CREATININE 0.9 mg/dL (0.55-1.3); MAGNESIUM 1.8 mg/dL (1.8-2.4); PHOSPHOROUS 4.6 mg/dL (2.5-4.9)
[2023-09-06] MEDS: amLODIPine BESYLATE 5 MG TABLET (FP) PO SCH (10:04)
[2023-09-06] MEDS: POTASSIUM CHLORIDE ORAL LIQUID 20 MEQ/15 ML PO ONE (10:05)
[2023-09-06] MEDS: KCL 10 MEQ IVPB 10 MEQ/100 ML INFUS.BAG IVPB SCH (10:24)
[2023-09-06] MEDS: CEFTRIAXONE 1 GM in DEXTROSE 5%-WATER - 50 ML IVPB SCH (15:43)
[2023-09-06] MEDS: DULoxetine HCL 30 MG CAPSULE.DR PO SCH (22:06)
[2023-09-06] MEDS: ATORVASTATIN CA 80 MG TABLET (FP) PO SCH (22:07)
[2023-09-07 08:38] LABS: BASO % 0.4 % (0-2.0); EOS % 5.8 % (0-4.5); HEMATOCRIT 31.6 % (32.4-45.2); HEMOGLOBIN 10.2 GM/dL (10.7-15.3); LYMPH % 32.7 % (8-40); MCH 28.4 pg (25.7-33.7); MCHC 32.4 g/dl (32.0-36.0); MEAN CELL VOLUME 87.7 fl (80-96); MEAN PLT VOLUME 6.7 fl (7.5-11.1); MONO % 6.7 % (3.8-10.2); NEUT % 54.4 % (42.8-82.8); PLATELET COUNT 414 10^3/uL (134-434); RDW 15.4 % (11.6-15.6); WHITE BLOOD COUNT 10.7 K/mm3 (4.0-10.0)
[2023-09-07 08:55] LABS: POTASSIUM 3.7 mmol/L (3.5-5.1)
[2023-09-07 09:11] LABS: BLOOD UREA NITROGEN 12.1 mg/dL (7-18); CALCIUM 8.9 mg/dL (8.5-10.1)
[2023-09-07 09:14] LABS: CREATININE 0.9 mg/dL (0.55-1.3)
[2023-09-07 09:15] LABS: BILIRUBIN,TOTAL 0.4 mg/dL (0.2-1); TOT PROT 7.4 g/dl (6.4-8.2)
[2023-09-08 08:01] LABS: POTASSIUM 3.4 mmol/L (3.5-5.1)
[2023-09-08 08:07] LABS: BASO % 0.3 % (0-2.0); EOS % 3.8 % (0-4.5); HEMATOCRIT 31.9 % (32.4-45.2); HEMOGLOBIN 10.3 GM/dL (10.7-15.3); LYMPH % 24.8 % (8-40); MCH 28.1 pg (25.7-33.7); MCHC 32.2 g/dl (32.0-36.0); MEAN CELL VOLUME 87.3 fl (80-96); MEAN PLT VOLUME 6.7 fl (7.5-11.1); MONO % 7.8 % (3.8-10.2); NEUT % 63.3 % (42.8-82.8); PLATELET COUNT 415 10^3/uL (134-434); RBC 3.65 M/mm3 (3.60-5.2); RDW 15.4 % (11.6-15.6); WHITE BLOOD COUNT 13.1 K/mm3 (4.0-10.0)
[2023-09-08 08:11] LABS: BLOOD UREA NITROGEN 10.5 mg/dL (7-18)
[2023-09-08 08:14] LABS: CREATININE 0.9 mg/dL (0.55-1.3)
[2023-09-08 08:15] LABS: BILIRUBIN,TOTAL 0.6 mg/dL (0.2-1); TOT PROT 7.2 g/dl (6.4-8.2)
[2023-09-08] MEDS: POTASSIUM CHLORIDE ORAL LIQUID 20 MEQ/15 ML PO ONE ×2 (10:03→11:35)
[2023-09-09 02:08] VITALS: RESP 18
[2023-09-09 07:50] LABS: BASO % 0.5 % (0-2.0); EOS % 6.4 % (0-4.5); HEMATOCRIT 32.4 % (32.4-45.2); HEMOGLOBIN 10.4 GM/dL (10.7-15.3); LYMPH % 29.7 % (8-40); MCH 28.3 pg (25.7-33.7); MCHC 32.2 g/dl (32.0-36.0); MEAN CELL VOLUME 87.8 fl (80-96); MEAN PLT VOLUME 6.8 fl (7.5-11.1); MONO % 7.3 % (3.8-10.2); NEUT % 56.1 % (42.8-82.8); PLATELET COUNT 400 10^3/uL (134-434); RBC 3.68 M/mm3 (3.60-5.2); RDW 15.5 % (11.6-15.6); WHITE BLOOD COUNT 10.5 K/mm3 (4.0-10.0)
[2023-09-09 08:01] LABS: POTASSIUM 3.7 mmol/L (3.5-5.1)
[2023-09-09 08:08] LABS: ALBUMIN 3.1 g/dl (3.4-5.0); CALCIUM 8.9 mg/dL (8.5-10.1)
[2023-09-09 08:09] LABS: BLOOD UREA NITROGEN 11.4 mg/dL (7-18)
[2023-09-09 08:10] LABS: CREATININE 0.9 mg/dL (0.55-1.3)
[2023-09-09 08:11] LABS: BILIRUBIN,TOTAL 0.3 mg/dL (0.2-1)
[2023-09-09 08:12] LABS: TOT PROT 7.6 g/dl (6.4-8.2)
[2023-09-09 18:51] VITALS: BP 139/100; PULSE 97; TEMP 97.9
== END 2023-09-09 19:00 | disposition home or self-care (01) ==
LOC: JER 14:38 → JERBED 17:04 → J4S 18:50
PROVIDERS: ADMIT Internal Medicine; ATTEND Internal Medicine
PROC: 3E03329 Introduction of Other Anti-infective into Peripheral Vein, Percutaneous Approach (ICD-10-PCS; principal; 2023-09-05)
PROC: 3E0337Z Introduction of Electrolytic and Water Balance Substance into Peripheral Vein, Percutaneous Approach (ICD-10-PCS; 2023-09-05)
DX: R29.810 Facial weakness (principal); I10 Essential (primary) hypertension; E78.5 Hyperlipidemia, unspecified; F32.A Depression, unspecified; K21.9 Gastro-esophageal reflux disease without esophagitis; G81.90 Hemiplegia, unspecified affecting unspecified side; G81.94 Hemiplegia, unspecified affecting left nondominant side; D32.0 Benign neoplasm of cerebral meninges; R56.9 Unspecified convulsions; Z98.890 Other specified postprocedural states; Z88.8 Allergy status to other drugs, medicaments and biological substances; Z87.891 Personal history of nicotine dependence
CPT/HCPCS: 36415; 70450-TC; 70551-TC; 80048; 80053; 80061; 80177; 81003; 82550; 82962; 83036; 83735; 84100; 84146; 84484; 85025; 85610; 85730; 86618; 86850; 86900; 86901; 87086; 87186; 93005; 93010; 93306-TC; 93880-TC; 96361; 96365; 97116-GP; 97161-GP; 99285-25; G0378

== ENCOUNTER 2023-12-02 18:01 | Emergency (ER) | payer OTHER ==
[2023-12-02 18:59] VITALS: BP 130/100; PULSE 90; RESP 18; TEMP 98.8; BMI 36.2
== END 2023-12-02 20:07 | disposition home or self-care (01) ==
LOC: JER 18:01
DX: I10 Essential (primary) hypertension (principal); R11.0 Nausea; R51.9 Headache, unspecified
CPT/HCPCS: 99283-25

== ENCOUNTER 2024-08-25 11:24 | Emergency (ER) | payer OTHER ==
[2024-08-25 11:34] VITALS: BP 141/86; PULSE 91; RESP 20; TEMP 98; BMI 39.7
[2024-08-25] MEDS ORDERED: ACETAMINOPHEN 325 MG TABLET (FP) ONE (12:34)
[2024-08-25] MEDS: ACETAMINOPHEN 500 MG TABLET (FP) PO ONE (12:38)
== END 2024-08-25 13:55 | disposition home or self-care (01) ==
LOC: JER 11:24
DX: R51.9 Headache, unspecified (principal); B34.9 Viral infection, unspecified; R05.9 Cough, unspecified; R09.81 Nasal congestion
CPT/HCPCS: 0241U-QW; 71045-TC-FY; 99284-25